=== PATIENT | female | born 1945 | race African-American/Black ===

== ENCOUNTER → 2016-08-13 | Outpatient (CLI) | payer MEDICARE, MEDICAID ==
[2016-08-13 10:52] LABS: ALANINE AMINOTRANSFERASE 148 U/L (9-52); ALKALINE PHOSPHATASE 96 U/L (38-126); ANION GAP 10 (5-19); ASPARTATE AMINO TRANSFERASE 169 U/L (14-36); BILIRUBIN,TOTAL 1.1 mg/dL (0.2-1.3); BLOOD UREA NITROGEN 30 mg/dL (7-20); CARBON DIOXIDE 27 mmol/L (22-30); CHLORIDE 106 mmol/L (98-107); CHOLESTEROL 184.71 mg/dL (0-200); CREATININE RESULT 1.89 mg/dL (0.52-1.25); Direct HDL 49 mg/dL (>40); GLUCOSE 89 mg/dL (75-110); POTASSIUM 4.9 mmol/L (3.6-5.0); SODIUM 143.1 mmol/L (137-145); TOTAL PROTEIN 9.2 g/dL (6.3-8.2); TRIGLYCERIDES 89 mg/dL (<150)
[2016-08-13 11:03] LABS: DIRECT LDL 85 mg/dL (<100)
== END ==
LOC: LAB 10:18
PROVIDERS: ATTEND Internal Medicine
DX: I25.10 Atherosclerotic heart disease of native coronary artery without angina pectoris (principal); E78.4 Other hyperlipidemia; E66.8 Other obesity; I27.2 Other secondary pulmonary hypertension; I50.9 Heart failure, unspecified; Z79.899 Other long term (current) drug therapy
CPT/HCPCS: 36415; 80053; 80061

== ENCOUNTER → 2016-08-19 | Outpatient (CLI) | payer MEDICARE, MEDICAID ==
--- NOTE | 2016-08-19 13:03 | XCELERA REPORT ---
[address] [address] Lower Extremity Arterial Evaluation Name: NELI BAEZ Age: 70 yrs Gender: Female : 1945 Patient Status: Outpatient Patient Location: Study Date: 08/19/2016 09:42 AM Procedure: A color flow and duplex scan of the lower extremity arteries was performed bilaterally with velocity and waveform analysis. Reason For Study: RLE WOUND Ordering Physician: MAGDI REYES Performed By: Josr Sharp Measurements and Calculations Right Left POLICE SPECIALIST PSV 157.8 165.0 cm/sec Prox PFA PSV -105.9 -106.8 cm/sec Dist SFA PSV -160.6 -144.6 cm/sec Prox Pop A PSV 89.4 50.3 cm/sec Dist FERN PSV 40.5 61.5 cm/sec Dist INSURANCE COLLECTOR PSV -47.2 49.3 cm/sec David Pedis PSV 35.9 55.9 cm/sec Right Side Arterial Evaluation Normal velocity, waveform and triphasic flow are present, from the Common Femoral artery to the Femoral. Biphasic in the infrageniculate vessels. The ankle-brachial index was not done. 0-19 % stenosis is noted at the infrageniculate level. Left Side Arterial Evaluation Normal velocity, waveform and triphasic flow are present, from the Common Femoral artery to the Femoral. Biphasic in the infrageniculate vessels. The ankle-brachial index was not done. 0-19 % stenosis is noted at the infrageniculate level. Interpretation Summary Mild hemodynamically significant lesions in the bilateral lower extremities, on duplex imaging, at rest. : MAGDI REYES > Shahid Ventura
== END ==
LOC: SP 09:27
PROVIDERS: ATTEND Family Medicine
DX: S81.801D Unspecified open wound, right lower leg, subsequent encounter (principal); X58.XXXD Exposure to other specified factors, subsequent encounter
CPT/HCPCS: 93925

== ENCOUNTER → 2016-12-04 | Outpatient (CLI) | payer MEDICARE, MEDICAID ==
[2016-12-04 09:10] LABS: HEMATOCRIT 40.9 % (36.0-47.0); HEMOGLOBIN 13.9 g/dL (12.0-15.5); HGB HCT DIFFERENCE 0.8; MEAN CORPUSCULAR HEMOGLOBIN 34.7 pg (27.0-33.4); MEAN CORPUSCULAR VOLUME 102 fl (80-97); RED CELL DISTRIBUTION WIDTH 14.9 % (11.5-14.0)
[2016-12-04 09:14] LABS: APPEARANCE,URINE CLEAR; BILIRUBIN,URINE NEGATIVE (NEGATIVE); GLUCOSE, URINE NEGATIVE (NEGATIVE); KETONES,URINE NEGATIVE (NEGATIVE); LEUKOCYTE ESTERASE,URINE NEGATIVE (NEGATIVE); NITRITE,URINE NEGATIVE (NEGATIVE); PROTEIN,URINE NEGATIVE (NEGATIVE); URINE SPECIFIC GRAVITY 1.017; UROBILINOGEN,URINE NEGATIVE mg/dL (<2.0)
[2016-12-04 09:35] LABS: ANION GAP 10 (5-19); BLOOD UREA NITROGEN 30 mg/dL (7-20); CALCIUM 8.5 mg/dL (8.4-10.2); CARBON DIOXIDE 25 mmol/L (22-30); CHLORIDE 109 mmol/L (98-107); CREATININE RESULT 1.28 mg/dL (0.52-1.25); GLUCOSE 91 mg/dL (75-110); POTASSIUM 4.7 mmol/L (3.6-5.0); SODIUM 144.4 mmol/L (137-145)
== END ==
LOC: LAB 08:49
PROVIDERS: ATTEND Internal Medicine Nephrology
DX: I12.9 Hypertensive chronic kidney disease with stage 1 through stage 4 chronic kidney disease, or unspecified chronic kidney disease (principal); N18.4 Chronic kidney disease, stage 4 (severe); E87.5 Hyperkalemia
CPT/HCPCS: 36415; 80048; 81001; 85027

== ENCOUNTER → 2017-02-15 | Outpatient (CLI) | payer MEDICARE, MEDICAID ==
--- NOTE | 2017-02-15 10:30 | RADIOLOGY REPORT (SQ) ---
EXAM DESCRIPTION: ACUTE ABDOMEN SERIES COMPLETED DATE/TIME: 02/15/2017 8:20 am REASON FOR STUDY: LOWER ABDOMINAL PAIN, UNSPECIFIED R10.30 LOWER ABDOMINAL PAIN, UNSPECIFIED COMPARISON: Chest CT 06/29/2014 NUMBER OF VIEWS: Three views. TECHNIQUE: Frontal chest, supine abdomen and upright abdomen radiographic images acquired. LIMITATIONS: None. FINDINGS: CHEST: No acute infiltrates. There is right hilar prominence. The left hilum is elevated and there are streaky changes extending to the left apex where there is apical pleural capping. FREE AIR: None. No abnormal gas collections. BOWEL GAS PATTERN: Nonobstructive pattern. No dilated loops or air fluid levels. CALCIFICATIONS: No suspicious calcifications. HARDWARE: None in the abdomen. SOFT TISSUES: No gross mass or suggestion of organomegaly. BONES: No acute fracture. No worrisome bone lesions. OTHER: No other significant finding. IMPRESSION: 1. There are changes in the chest felt to be chronic, but consider chest CT to re-evalu ate changes described. 2. No acute process is suggested in the abdomen. TECHNICAL DOCUMENTATION: JOB ID: [id number] [employer]- All Rights Reserved
== END ==
LOC: OD 08:03
PROVIDERS: ATTEND Physician Assistant
DX: R10.30 Lower abdominal pain, unspecified (principal)
CPT/HCPCS: 74022

== ENCOUNTER → 2017-02-18 | Outpatient (CLI) | payer MEDICARE, MEDICAID ==
--- NOTE | 2017-02-18 10:59 | RADIOLOGY REPORT (SQ) ---
EXAM DESCRIPTION: CT CHEST WITHOUT COMPLETED DATE/TIME: 02/18/2017 9:51 am REASON FOR STUDY: ABNORMAL FINDINGS OF DIAGNOSTIC IMAGING R93.8 ABNORMAL FINDINGS ON DIAGNOSTIC RUKHSANA GING OF BODY STRUCT COMPARISON: CT 06/29/2014 chest x-ray 02/15/2017 TECHNIQUE: CT scan performed of the chest without intravenous contrast. Images reviewed with lung, soft tissue and bone windows. Reconstructed coronal and sagittal MPR images reviewed. All images st ored on PACS. All CT scanners at this facility use dose modulation, iterative reconstruction, and/or weight based d osing when appropriate to reduce radiation dose to as low as reasonably achievable (ALARA). [facility]: Dose Right [facility]: CareDose [facility]: Dose Right [facility]: Teradose 4D [facility]: Smart Technologies RADIATION DOSE: Up-to-date CT equipment and radiation dose reduction techniques were employed. CTDIv ol: 18.3 mGy. DLP: 683 mGy-cm. mGy. LIMITATIONS: No technical limitations. FINDINGS: LUNGS AND PLEURA: There is apical pleural thickening on the left. There is scarring and b ronchiectasis in the left upper lobe extending to the left hilum. These findings are stable. There i s somewhat lobular nodule in the right lower lobe that is stable. There is no pulmonary infiltrate o r pleural effusion. HILAR AND MEDIASTINAL STRUCTURES: No identified masses or abnormal nodes. No obvious aneurysm. HEART AND VASCULAR STRUCTURES: No aneurysm. No pericardial effusion. UPPER ABDOMEN: No significant findings. Limited exam. THYROID AND OTHER SOFT TISSUES: No masses. No adenopathy. BONES: No significant finding. HARDWARE: None in the chest. OTHER: No other significant findings. IMPRESSION: There are stable findings as described above. No acute pulmonary abnormality is seen. TECHNICAL DOCUMENTATION: JOB ID: [id number] Quality ID # [id number]: Final reports with documentation of one or more dose reduction techniques (e.g., Au tomated exposure control, adjustment of the mA and/or kV according to patient size, use of iterative reconstruction technique) 2010 [employer]- All Rights Reserved
== END ==
LOC: RAD 09:34
PROVIDERS: ATTEND Physician Assistant
DX: R93.8 Abnormal findings on diagnostic imaging of other specified body structures (principal)
CPT/HCPCS: 71250

== ENCOUNTER → 2017-05-05 | Outpatient (CLI) | payer MEDICARE, MEDICAID ==
--- NOTE | 2017-05-05 16:58 | WOMENS IMAGING REPORT ---
EXAM DESCRIPTION: 3D SCREENING MAMMO BILAT COMPLETED DATE/TIME: 05/05/2017 9:15 am REASON FOR STUDY: ROUTINE SCREENING;Z12.31 Z12.31 ENCNTR SCREEN MAMMOGRAM FOR MALIGNANT NEOPLASM OF [place] COMPARISON: Multiple since 2013 TECHNIQUE: Standard craniocaudal and mediolateral oblique views of each breast recorded using digita l acquisition and breast tomosynthesis. LIMITATIONS: None. FINDINGS: Findings present which are benign by mammographic criteria. No suspicious masses, calcifi cations or architectural distortion. Pertinent benign findings: Benign calcifications bilaterally Read with the assistance of CAD. [facility] - R2 Cenova Version 1.3 .[facility] - R2 Cenova Version 1.3 .[facility] Imaging - R2 Cenova Version 2.4 .[facility] [place] - R2 Cenova Version 2.4 .[facility] - R2 E Business Manager Version 9.2 Benign mammographic findings may include one or more of the following: Smooth masses, popcorn/rim/co arse calcifications, asymmetries, post-procedure changes, and lesions with long-standing stability. IMPRESSION: BENIGN MAMMOGRAPHIC FINDINGS. BIRADS 2 BREAST DENSITY: b. There are scattered areas of fibroglandular density. BIRAD: 2 BENIGN FINDING(S) RECOMMENDATION: RECOMMENDATION: ROUTINE SCREENING Please continue yearly bilateral screening tomosynthesis in April 2018 COMMENT: The patient has been notified of the results by letter per SA requirements. Additional no tification policies are in place for contacting patient with suspicious or incomplete findings. Quality ID #[id number]: The [employer] recommends an annual screening mammogram for women aged 40 years or over. This facility utilizes a reminder system to ensure that all patients receive reminder letters, and/or direct phone calls for appointments. This includes reminders for routine scr eening mammograms, diagnostic mammograms, or other Breast Imaging Interventions when appropriate. Th is patient will be placed in the appropriate reminder system. The [employer] (ACR) has developed recommendations for screening MRI of the breast s in certain patient populations, to be used in conjunction with mammography. Breast MRI surveillanc e may be appropriate for women with more than 20% lifetime risk of developing breast cancer as deter mined by genetic testing, significant family history of the disease, or history of mantle radiation f or Hodgkins Disease. ACR Practice Guidelines 2008. DBT Technology DBT is a type of tomographic mammography. With conventional mammography, overlapping breast tissue ma y make lesions difficult to detect, even with good compression. DBT uses an x-ray tube that rotates a round the breast, taking images at different angles. These images are then combined to create thin sl ices of the breast that the radiologist can view as a 3D reconstruction. The [employer] unit can perform full-field digital mammograms (2D imaging); or DBT (3D imaging); or both, in a combination mode that quickly performs both the mammogram and the tomosynthesis scan while the breast is still compressed. PQRS 6045F: Fluoroscopic imaging is not utilized for breast tomosynthesis. TECHNICAL DOCUMENTATION: FINDING NUMBER: (1) ASSESSMENT: (1) JOB ID: [id number] [employer]- All Rights Reserved
== END ==
LOC: WI 08:36
PROVIDERS: ATTEND Physician Assistant
DX: Z12.31 Encounter for screening mammogram for malignant neoplasm of breast (principal)
CPT/HCPCS: 77063; G0202; 77067

== ENCOUNTER → 2017-09-14 | Outpatient (CLI) | payer MEDICARE, MEDICAID ==
--- NOTE | 2017-09-14 14:23 | RADIOLOGY REPORT (SQ) ---
EXAM DESCRIPTION: CERV SP 4 OR 5 VIEWS COMPLETED DATE/TIME: 09/14/2017 10:11 am REASON FOR STUDY: PAIN IN LEFT SHOULDER (M25.512) R07.9 CHEST PAIN, UNSPECIFIED COMPARISON: None. NUMBER OF VIEWS: Five views. TECHNIQUE: AP, lateral, obliques and odontoid radiographic images acquired of the cervical spine. LIMITATIONS: None. FINDINGS: MINERALIZATION: Normal. ALIGNMENT: Anatomic. VERTEBRAE: Vertebral bodies of normal height. DISCS: Mild moderate disc space narrowing C4-C5, C5-C6 and C6-C7. Minimal degenerative spurring post erior FORAMINA: Slight encroachment upon the neural foramina C5-C6 and C6-C7 on the right. LATERAL AND POSTERIOR ELEMENTS: Facets, lateral masses and spinous processes without significant find ings. HARDWARE: None in the spine. SOFT TISSUES: No masses or calcifications. Lung apices clear. OTHER: No other significant finding. IMPRESSION: Mild to moderate spondylotic change C4 through C7 reflected by disc space narrowing and degenerative spurring posteriorly. TECHNICAL DOCUMENTATION: JOB ID: [id number] [employer]- All Rights Reserved Reading location - IP/workstation name: [email or web address]
--- NOTE | 2017-09-14 19:01 | XCELERA REPORT ---
[address] [address] Transthoracic Echocardiogram Report Name: NELI BAEZ Age: 71 yrs Gender: Female : 1945 Patient Status: Outpatient Patient Location: Study Date: 09/14/2017 09:06 AM Height: 64 in Weight: 239 lb BSA: 2.1 m2 Procedure: A complete two-dimensional transthoracic echocardiogram was performed (2D, M-mode, spectral and color flow Doppler). The study was technically difficult with many images being suboptimal in quality. Reason For Study: CP Ordering Physician: CATRACHO TORRES Performed By: Yulissa Parks Interpretation Summary The study was technically difficult with many images being suboptimal in quality. The Ejection Fraction estimate is 45-50% Left ventricular systolic function is mildly reduced. Doppler measurements suggest pseudonormalized left ventricular relaxation, which is associated with grade II/IV or mild to moderate diastolic dysfunction Regional wall motion abnormalities cannot be excluded due to limited visualization. There is borderline concentric left ventricular hypertrophy. The left ventricle is grossly normal size. The right ventricle is moderately dilated. The right ventricular systolic function is mild to moderately reduced. Borderline left atrial enlargement. The right atrium is moderately dilated. There is no mitral regurgitation noted. There is no mitral valve stenosis. Can not r/o pior mitral ring repair There is no aortic valve stenosis No aortic regurgitation is present. There is a moderate amount of tricuspid regurgitation There is servere pulmonary hypertension by echo Best estimated RVSP is approximately 80 mm/Hg. The aortic root is not well visualized but is probably normal size. The inferior vena cava was not well visualized There is no pericardial effusion. MMode/2D Measurements & Calculations RVDd: 2.9 cm LVIDd: 5.1 cm FS: 17.6 % Ao root diam: 2.3 cm IVSd: 0.98 cm LVIDs: 4.2 cm EDV(Teich): 124.7 ml LVPWd: 0.96 cm ESV(Teich): 79.3 ml Ao root area: 4.1 cm2 EF(Teich): 36.4 % LA dimension: 4.2 cm Doppler Measurements & Calculations MV E max iraida: MV P1/2t max iraida: Ao V2 max: LV V1 max P.6 cm/sec 64.2 cm/sec 143.3 cm/sec 1.6 mmHg MV A max iraida: MV P1/2t: 61.8 msec Ao max PG: LV V1 max: 120.4 cm/sec 8.2 mmHg 62.7 cm/sec MV E/A: 0.55 MVA(P1/2t): 3.6 cm2 MV dec slope: 304.1 cm/sec2 PA V2 max: TR max iraida: 59.7 cm/sec 449.3 cm/sec PA max P.4 mmHgTR max P.7 mmHg Left Ventricle The left ventricle is grossly normal size. There is borderline concentric left ventricular hypertrophy. Left ventricular systolic function is mildly reduced. The Ejection Fraction estimate is 45-50%. Doppler measurements suggest pseudonormalized left ventricular relaxation, which is associated with grade II/IV or mild to moderate diastolic dysfunction. Regional wall motion abnormalities cannot be excluded due to limited visualization. Right Ventricle The right ventricle is moderately dilated. The right ventricular systolic function is mild to moderately reduced. Atria The right atrium is moderately dilated. Borderline left atrial enlargement. Interarterial septum not well visualized and not well dopplered. Cannot comment on ASD/PFO presence. Mitral Valve The mitral valve leaflets are sclerotic, but show no functional abnormalities. There is moderate mitral annular calcification. Can not r/o pior ring repair. There is no mitral valve stenosis. There is no mitral regurgitation noted. Aortic Valve The aortic valve is not well visualized secondary to technical limitations. There is no aortic valve stenosis. No aortic regurgitation is present. Tricuspid Valve The tricuspid valve is not well visualized secondary to technical limitations. There is no tricuspid stenosis. There is a moderate amount of tricuspid regurgitation. There is servere pulmonary hypertension by echo. Best estimated RVSP is approximately 80 mm/Hg. Pulmonic Valve The pulmonic valve is not well visualized. Great Vessels The aortic root is not well visualized but is probably normal size. The inferior vena cava was not well visualized. Effusions There is no pericardial effusion. : CATRACHO TORRES > Lynda Rossi
== END ==
LOC: SP 08:45
PROVIDERS: ATTEND Specialist
DX: R07.9 Chest pain, unspecified (principal); M48.02 Spinal stenosis, cervical region
CPT/HCPCS: 72050; 93306

== ENCOUNTER 2017-09-24 14:18 | Inpatient (IN) | payer MEDICARE, MEDICAID ==
--- NOTE | 2017-09-24 14:31 | ER Document Report ---
ED General - General Stated Complaint: BREATHING DIFFICULTY Time Seen by Provider: 09/24/17 14:21 Notes: This is a 71-year-old lady who has chronic lung disease being considered for home oxygen, pathology unknown coming in with respiratory distress. She has got acutely short of breath this morning was found pale diaphoretic and hypoxic by paramedics, she improved with nebulizers on the way here and was given steroids as well. She denies fever but says she is coughing. She denies leg swelling. She states that she has had flares like this before and does use a "pop" at home. She sees Dr. Millan, I do not see documentation of any respiratory disease in her chart. TRAVEL OUTSIDE OF THE [place] IN LAST 30 DAYS: No - Related Data Allergies/Adverse Reactions: Sulfa (Sulfonamide Antibiotics) Allergy (Verified 05/26/16 11:36) Past Medical History - Social History Smoking Status: Current Every Day Smoker Smoking Education Provided: Yes - The patient ED visit today was directly related to their abuse of tobacco. Family History: Reviewed & Not Pertinent - Past Medical History Cardiac Medical History: Reports: Hx Congestive Heart Failure, Hx Coronary Artery Disease, Hx Heart Attack, Hx Hypercholesterolemia, Hx Hypertension, Hx Peripheral Vascular Disease Pulmonary Medical History: Denies: Hx Tuberculosis Renal/ Medical History: Reports: Hx Renal Insufficiency Musculoskeltal Medical History: Reports Hx Arthritis Past Surgical History: Reports: Hx Tonsillectomy - Immunizations Hx Diphtheria, Pertussis, Tetanus Vaccination: Yes - 2014 Hx Pneumococcal Vaccination: 03/26/13 Physical Exam - Vital signs Vitals: Resp Pulse Ox 17 87 L 09/24/17 14:23 09/24/17 14:23 Course - Re-evaluation Re-evalutation: 09/24/17 14:36 Patient seen and evaluated in the ED. She had improved vastly from her prehospital state but was still requiring oxygen in the ED. On reviewing her chart recklessly I do see a CT scan that was done in the last 6 months which showed pleural thickening and bronchiectasis on the right side. Her differential includes flare of interstitial lung disease versus COPD, new pneumonia, less likely pulmonary embolus as there is an alternative cause and she improved with nebulizer. Will do a pneumonia and sepsis workup. Her ECG shows a stable conduction block. 09/24/17 17:51 CT shows bronchiectasis but no pulmonary embolus. Patient is still requiring oxygen and will need to be admitted. Spoke with Dr. Escalante who accepted. Labs are unremarkable. - Vital Signs Vital signs: Temp Pulse Resp BP Pulse Ox 19 163/87 H 94 09/24/17 17:02 09/24/17 17:02 09/24/17 17:02 - Laboratory Result Diagrams: 09/24/17 14:30 09/24/17 14:30 Laboratory results interpreted by me: 09/24/17 09/24/17 14:30 14:30 Hgb 15.9 H MCV 105 H MCH 35.4 H RDW 15.2 H Potassium 5.5 H Chloride 108 H BUN 23 H Creatinine 1.60 H Est GFR ( Amer) 39 L Est GFR (Non-Af Amer) 32 L - Diagnostic Test Radiology reviewed: Image reviewed, Reports reviewed - EKG Interpretation by Me EKG shows normal: Sinus rhythm Rate: Normal A[place]worth/QRS: LBBB When compared to previous EKG there are: No significant change Critical Care Note - Critical Care Note Total time excluding time spent on procedures (mins): 31 Comments: The above patient is critically ill. Not including procedures, but including direct re-evaluations, speaking with patient and/or consultants, interpreting results, and documenting, I spent the total amount of minute listed listed above on critical care time
[2017-09-24 14:43] LABS: ABSOLUTE EOSINOPHILS # (AUTO) 0.3 10^3/uL (0.0-0.6); ABSOLUTE LYMPHOCYTES (AUTO) 1.7 10^3/uL (0.5-4.7); ABSOLUTE MONOCYTES (AUTO) 0.7 10^3/uL (0.1-1.4); ABSOLUTE NEUT (AUTO) 5.6 10^3/uL (1.7-8.2); BASOPHILS % (AUTO) 0.4 % (0-2); EOSINOPHILS % (AUTO) 3.1 % (0-6); HEMOGLOBIN 15.9 g/dL (12.0-15.5); LYMPHOCYTES % (AUTO) 20.6 % (13-45); MEAN CORPUSCULAR HEMOGLOBIN 35.4 pg (27.0-33.4); MEAN CORPUSCULAR HGB CONC 33.8 g/dL (32.0-36.0); MEAN CORPUSCULAR VOLUME 105 fl (80-97); MONOCYTES % (AUTO) 8.9 % (3-13); PLATELET COUNT 192 10^3/uL (150-450); RED CELL DISTRIBUTION WIDTH 15.2 % (11.5-14.0); TOTAL CELLS COUNTED % (AUTO) 100 %; WHITE BLOOD COUNT 8.3 10^3/uL (4.0-10.5)
[2017-09-24 15:04] LABS: ANION GAP 7 (5-19); BLOOD UREA NITROGEN 23 mg/dL (7-20); CALCIUM 8.8 mg/dL (8.4-10.2); CARBON DIOXIDE 26 mmol/L (22-30); CHLORIDE 108 mmol/L (98-107); GLUCOSE 106 mg/dL (75-110); POTASSIUM 5.5 mmol/L (3.6-5.0); SODIUM 141.4 mmol/L (137-145)
--- NOTE | 2017-09-24 15:08 | RADIOLOGY REPORT (SQ) ---
EXAM DESCRIPTION: CHEST SINGLE VIEW COMPLETED DATE/TIME: 09/24/2017 2:49 pm REASON FOR STUDY: SOB COMPARISON: 10/19/2013 NUMBER OF VIEWS: One view. TECHNIQUE: Single frontal radiographic view of the chest acquired. LIMITATIONS: None. FINDINGS: LUNGS AND PLEURA: Chronic interstitial changes. Known pulmonary nodule right lower lobe n ot significantly changed. Stable areas of bronchiectasis in the left upper lobe. MEDIASTINUM AND HILAR STRUCTURES: No masses or contour abnormality. HEART AND VASCULATURE: Cardiac enlargement. Vascular congestion. BONES: No acute findings. HARDWARE: None in the chest. OTHER: No other significant finding. IMPRESSION: CARDIAC ENLARGEMENT. VASCULAR CONGESTION. TECHNICAL DOCUMENTATION: JOB ID: [id number] [employer]- All Rights Reserved Reading location - IP/workstation name: [email or web address]
--- NOTE | 2017-09-24 16:59 | RADIOLOGY REPORT (SQ) ---
EXAM DESCRIPTION: CTA CHEST COMPLETED DATE/TIME: 09/24/2017 4:19 pm REASON FOR STUDY: Hypoxia rule out PE COMPARISON: CT chest 02/18/2017 TECHNIQUE: CT scan of the chest performed using helical scanning technique with dynamic intravenous contrast injection. Images reviewed with lung, soft tissue and bone windows. Reconstructed coronal and sagittal MPR images reviewed. Additional 3 dimensional post-processing performed to develop Maximal Intensity Projection images (GA P). All images stored on PACS. All CT scanners at this facility use dose modulation, iterative reconstruction, and/or weight based d osing when appropriate to reduce radiation dose to as low as reasonably achievable (ALARA). [facility]: Dose Right [facility]: CareDose [facility]: Dose Right [facility]: Teradose 4D [facility]: [employer] CONTRAST TYPE AND DOSE: contrast/concentration: Isovue 300.00 mg/ml; Total Contrast Delivered: 81.0 ml; Total Saline Delivered: 87.0 ml BUN 23 creatinine 1.6 RENAL FUNCTION: BUN 23 creatinine 1.6 RADIATION DOSE: CT Rad equipment meets quality standard of care and radiation dose reduction techniq ues were employed. CTDIvol: 36.9 - 46.3 mGy. DLP: 1441 mGy-cm. . LIMITATIONS: None. FINDINGS: LUNGS AND PLEURA: There are stable, chronic changes seen the left upper lobe with elevatio n the left hilum and scarring and bronchiectasis. There is stable right pulmonary nodule. AORTA AND GREAT VESSELS: No aneurysm. Contrast bolus not optimized for the aorta. Left-sided superi or vena cava. HEART: No pericardial effusion. Moderate to marked coronary artery calcifications. PULMONARY ARTERIES: No emboli visualized in the main pulmonary arteries or the segmental branches. HILAR AND MEDIASTINAL STRUCTURES: No identified masses or abnormal nodes. HARDWARE: None in the chest. UPPER ABDOMEN: No significant findings. Limited exam. THYROID AND OTHER SOFT TISSUES: No masses. No adenopathy. BONES: No acute or significant finding. 3D MIPS: Confirm above findings. OTHER: No other significant finding. IMPRESSION: 1. There is no evidence of pulmonary emboli. 2. Extensive chronic changes in the lungs as described. 3. Left-sided superior vena cava. COMMENT: Quality ID # [id number]: Final reports with documentation of one or more dose reduction techniques (e.g., Automated exposure control, adjustment of the mA and/or kV according to patient size, use of iterative reconstruction technique) TECHNICAL DOCUMENTATION: JOB ID: [id number] [employer]- All Rights Reserved Reading location - IP/workstation name: [email or web address]
[2017-09-24] MEDS ORDERED: NORMAL SALINE 1000 ML 1,000 ML IV PRN ×2 (18:48→20:44)
[2017-09-24 19:44] LABS: FREE T4 (FREE THYROXINE) 2.36 ng/dL (0.78-2.19)
[2017-09-24 19:58] LABS: THYROID STIMULATING HORMONE 3.79 uIU/mL (0.47-4.68)
[2017-09-24] MEDS ORDERED: LEVOFLOXACIN 750 MG/D5W RTU 750 MG/150 ML RTUPB IV ONE (20:00)
[2017-09-24 20:14] LABS: APPEARANCE,URINE CLEAR; BILIRUBIN,URINE NEGATIVE (NEGATIVE); COLOR,URINE YELLOW; GLUCOSE, URINE NEGATIVE (NEGATIVE); KETONES,URINE NEGATIVE (NEGATIVE); LEUKOCYTE ESTERASE,URINE NEGATIVE (NEGATIVE); NITRITE,URINE NEGATIVE (NEGATIVE); PROTEIN,URINE NEGATIVE (NEGATIVE); URINE SPECIFIC GRAVITY 1.036; UROBILINOGEN,URINE NEGATIVE mg/dL (<2.0)
[2017-09-24 20:19] LABS: ARTERIAL BLOOD BASE EXCESS -4.4 mmol/L; ARTERIAL BLOOD HCO3 21.7 mmol/L (20-26); ARTERIAL BLOOD O2 SATURATION 91.2 % (94-98); ARTERIAL BLOOD PCO2 43.3 mmHg (35-45); ARTERIAL BLOOD PH 7.32 (7.35-7.45); ARTERIAL BLOOD PO2 65.3 mmHg (80-100)
[2017-09-24 20:22] LABS: ARTERIAL BLOOD FIO2 15L
--- NOTE | 2017-09-24 21:11 | EKG REPORT ---
SEVERITY:- ABNORMAL ECG - SINUS RHYTHM LEFT BUNDLE BRANCH BLOCK : Confirmed by: Lynda Rossi 24-Sep-2017 21:11:10
[2017-09-24 21:27] LABS: CREATINE KINASE MB 0.58 ng/mL (<4.55)
[2017-09-24 21:31] LABS: TROPONIN I < 0.012 ng/mL
[2017-09-25 01:53] LABS: CREATINE KINASE MB 0.38 ng/mL (<4.55)
[2017-09-25 01:57] LABS: TROPONIN I < 0.012 ng/mL
[2017-09-25] MEDS ORDERED: ALBUTEROL SULFATE HFA (90 MCG/PUFF) 8 GM MDI (1 MDI/ER DISP) IH PRN (02:49)
[2017-09-25] MEDS: LEVOTHYROXINE SODIUM 0.025 MG TABLET PO SCH (06:35)
[2017-09-25] MEDS: HYDRALAZINE HCL 25 MG TABLET PO SCH ×3 (06:36→21:49)
[2017-09-25 07:03] LABS: ABSOLUTE LYMPHOCYTES (AUTO) 0.4 10^3/uL (0.5-4.7); ABSOLUTE NEUT (AUTO) 2.4 10^3/uL (1.7-8.2); BASOPHILS % (AUTO) 0.3 % (0-2); HEMATOCRIT 47.2 % (36.0-47.0); LYMPHOCYTES % (AUTO) 12.8 % (13-45); MEAN CORPUSCULAR HEMOGLOBIN 35.5 pg (27.0-33.4); MEAN CORPUSCULAR HGB CONC 33.9 g/dL (32.0-36.0); MEAN CORPUSCULAR VOLUME 105 fl (80-97); MONOCYTES % (AUTO) 1.2 % (3-13); PLATELET COUNT 172 10^3/uL (150-450); RED BLOOD COUNT 4.52 10^6/uL (3.72-5.28); RED CELL DISTRIBUTION WIDTH 14.9 % (11.5-14.0); SEGMENTED NEUTROPHILS % (AUTO) 85.7 % (42-78); TOTAL CELLS COUNTED % (AUTO) 100 %
[2017-09-25 07:15] LABS: ANION GAP 12 (5-19); BLOOD UREA NITROGEN 28 mg/dL (7-20); CARBON DIOXIDE 18 mmol/L (22-30); CHLORIDE 109 mmol/L (98-107); GLUCOSE 142 mg/dL (75-110); SODIUM 139.1 mmol/L (137-145)
[2017-09-25 07:19] LABS: WHITE BLOOD COUNT 2.9 10^3/uL (4.0-10.5)
[2017-09-25 07:23] LABS: POTASSIUM 6.2 mmol/L (3.6-5.0)
[2017-09-25 07:24] LABS: CREATINE KINASE MB 0.52 ng/mL (<4.55)
[2017-09-25 07:27] LABS: TROPONIN I < 0.012 ng/mL
[2017-09-25] MEDS ORDERED: CALCIUM GLUCONATE 1000 MG/10 ML INJ IV ONE (07:44)
[2017-09-25] MEDS ORDERED: INSULIN REG, HUMAN 100 UNIT/ML 3 ML VIAL (PYX) IV ONE (07:49)
[2017-09-25] MEDS ORDERED: DEXTROSE 50%-WATER 25 GM/50 ML DISP.SYRIN IV ONE (07:51)
[2017-09-25] MEDS ORDERED: SODIUM POLYSTYRENE SULFONATE 15 GM/60 ML PO ONE (07:51)
[2017-09-25] MEDS: POTASSIUM CHLORIDE 10 MEQ TABLET.SA PO SCH (09:22)
[2017-09-25] MEDS: FUROSEMIDE 40 MG TABLET PO SCH (10:18)
[2017-09-25] MEDS: ENOXAPARIN SODIUM INJ 30 MG/0.3 ML DISP.SYRIN SUBCUT SCH (10:18)
[2017-09-25] MEDS: CARVEDILOL 6.25 MG TABLET PO SCH ×2 (10:19→21:49)
[2017-09-25] MEDS: OMEGA-3 ACID ETHYL ESTERS 1 GM CAPSULE PO SCH (10:19)
[2017-09-25] MEDS: ASPIRIN 81 MG TABLET, ENT COATED PO SCH (10:19)
[2017-09-25] MEDS: FLUTICASONE NASAL SPRAY 50 MCG/SPRY 120 SPRAY/16 GM NASL SCH (10:32)
[2017-09-25] MEDS ORDERED: SODIUM POLYSTYRENE SULFONATE 15 GM/60 ML PO SCH (12:00)
[2017-09-25] MEDS: SODIUM POLYSTYRENE SULFONATE 15 GM/60 ML PO SCH ×2 (12:09→18:13)
[2017-09-25] MEDS ORDERED: INFLUENZA ADLT QUAD (36MOS+) 2017-18 VAC 0.5 ML SYR IM PRN (15:40)
--- NOTE | 2017-09-25 15:56 | PDOC H&P ---
History of Present Illness Admission Date/PCP: 09/24/17 17:55 MAGDI REYES MD History of Present Illness: NELI BAEZ is a 71 year old female, she came to the emergency room for evaluation of shortness of breath, diaphoresis of acute onset, she was transferred to the emergency room by EMS. She was found to be hypoxemic she was treated with bronchodilators on the way to the emergency room and she also had steroid. In the emergency room a CTA chest was done, it showed stable chronic changes in the left upper lobe with elevation in the left hilum and scarring with bronchiectasis. There is stable right pulmonary nodule there was no pulmonary emboli visualized in the main pulmonary arteries or the segmental branches. The ABG on FiO2 of 15 L, PO2 65.3, PCO2 43.3, bicarbonate 21.7, pH 7.32, this is consistent with severe hypoxemia with mixed acid-base disorder. There is no evidence of acute consolidation to suggest pneumonia. It was stated that she was being evaluated for home oxygen before she developed this acute onset of shortness of breath requiring ED visit. In the emergency room the providers could not maintain adequate oxygenation without high volume oxygen , it was felt that she needed to be admitted to the hospital for management. It seems that she has interstitial lung disease, she follows with Dr. Salinas pulmonary, consultation will be requested from Dr. 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 Past Medical History Cardiac Medical History: Reports: Coronary Artery Disease, Hyperlipidema, Hypertension, Peripheral Vascular Disease, Other - Pulmonary hypertension Pulmonary Medical History: Reports: Other - Chronic interstitial lung disease Renal/ Medical History: Reports: Chronic Kidney Disease, Other - Chronic kidney disease stage 3 Musculoskeltal Medical History: Reports: Arthritis Past Surgical History Past Surgical History: Reports: Tonsillectomy Social History Smoking Status: Former Smoker Frequency of Alcohol Use: Occasional Hx Recreational Drug Use: No Hx Prescription Drug Abuse: No Family History Family History: Reviewed & Not Pertinent Parental Family History Reviewed: Yes Children Family History Reviewed: Yes Sibling(s) Family History Reviewed.: Yes Medication/Allergy Home Medications: Albuterol Sulfate [Ventolin HFA MDI 18 GM] 2 puff IH Q4HP PRN 09/24/17 Aspirin [Ecotrin 81 mg EC Tablet] 81 mg PO DAILY 09/24/17 Carvedilol [Coreg 6.25 mg Tablet] 12.5 mg PO Q12 09/24/17 Fluticasone Propionate [Flonase Nasal [place] 50 Mcg/[place] 16 gm] 1 spray NASL DAILY 09/24/17 Furosemide [Lasix 40 mg Tablet] 40 mg PO DAILY 09/24/17 Hydralazine HCl [Apresoline 25 mg Tablet] 25 mg PO Q8 09/24/17 Levocetirizine Dihydrochloride [Xyzal] 5 mg PO QPM 09/24/17 Levothyroxine Sodium [Synthroid 0.025 mg Tablet] 0.025 mg PO Q6AM 09/24/17 Nitroglycerin [Nitrostat] 0.4 mg SL Q5MP PRN 09/24/17 [place]-3 Fatty Acids/Fish Oil [Fish Oil 1,000 mg Capsule] 1 cap PO DAILY Ondansetron HCl [Zofran 4 mg Tablet] 4 mg PO Q12HP PRN 09/24/17 Potassium Chloride [Klor-Con M20] 20 meq PO DAILY 09/24/17 Allergies/Adverse Reactions: Sulfa (Sulfonamide Antibiotics) Allergy (Verified 05/26/16 11:36) Review of Systems Constitutional: ABSENT: chills, fever(s), headache(s), weight gain, weight loss Eyes: ABSENT: visual disturbances Ears: ABSENT: hearing changes Cardiovascular: PRESENT: dyspnea on exertion Respiratory: PRESENT: cough, dyspnea Gastrointestinal: ABSENT: abdominal pain, constipation, diarrhea, hematemesis, hematochezia, nausea, vomiting Genitourinary: ABSENT: dysuria, hematuria Musculoskeletal: ABSENT: joint swelling Integumentary: ABSENT: rash, wounds Neurological: ABSENT: abnormal gait, abnormal speech, confusion, dizziness, focal weakness, syncope Psychiatric: ABSENT: anxiety, depression, homidical ideation, suicidal ideation Endocrine: ABSENT: cold intolerance, heat intolerance, menstrual abnormalities, polydipsia, polyuria Hematologic/Lymphatic: ABSENT: easy bleeding, easy bruising, lymphadenopathy Physical Exam Vital Signs: Temp Pulse Resp BP Pulse Ox 97.4 F 15 183/92 H 95 09/25/17 10:30 09/25/17 12:44 09/25/17 12:44 09/25/17 12:44 Intake & Output 03/04/0509/25/17 09/26/17 06:59 06:59 07:59 Weight 108.862 kg General appearance: PRESENT: no acute distress, well-developed, well-nourished Head exam: PRESENT: atraumatic, normocephalic Eye exam: PRESENT: conjunctiva pink, EOMI, PERRLA Ear exam: PRESENT: normal external ear exam Mouth exam: PRESENT: moist, tongue midline Neck exam: PRESENT: full ROM Respiratory exam: PRESENT: rales Cardiovascular exam: PRESENT: RRR, +S1, +S2 Pulses: PRESENT: normal dorsalis pedis pul, +2 pedal pulses bilateral Vascular exam: PRESENT: normal capillary refill GI/Abdominal exam: PRESENT: normal bowel sounds, soft Rectal exam: PRESENT: deferred Extremities exam: PRESENT: joint swelling Neurological exam: PRESENT: alert, awake, oriented to person, oriented to place , oriented to time, oriented to situation, CN II-XII grossly intact Psychiatric exam: PRESENT: appropriate affect, normal mood Skin exam: PRESENT: dry, intact, warm Results Laboratory Results: 09/25/17 06:50 09/25/17 06:50 09/24/17 09/24/17 09/25/17 19:40 19:50 06:50 WBC 2.9 L D RBC 4.52 Hgb 16.0 H Hct 47.2 H MCV 105 H MCH 35.5 H MCHC 33.9 RDW 14.9 H Plt Count 172 Seg Neutrophils % 85.7 H Lymphocytes % 12.8 L Monocytes % 1.2 L Eosinophils % 0.0 Basophils % 0.3 Absolute Neutrophils 2.4 Absolute Lymphocytes 0.4 L Absolute Monocytes 0.0 L Absolute Eosinophils 0.0 Absolute Basophils 0.0 Carbonic Acid 1.30 HCO3/H2CO3 Ratio 16:1 ABG pH 7.32 L ABG pCO2 43.3 ABG pO2 65.3 L ABG HCO3 21.7 ABG O2 Saturation 91.2 L ABG Base Excess -4.4 FiO2 15L Sodium Potassium Chloride Carbon Dioxide Anion Gap BUN Creatinine Est GFR ( Amer) Est GFR (Non-Af Amer) Glucose Calcium Urine Color YELLOW Urine Appearance CLEAR Urine pH 5.0 Ur Specific [place] 1.036 Urine Protein NEGATIVE Urine Glucose (UA) NEGATIVE Urine Ketones NEGATIVE Urine Blood NEGATIVE Urine Nitrite NEGATIVE Ur Leukocyte Esterase NEGATIVE Urine WBC (Auto) 1 Urine RBC (Auto) 0 09/25/17 06:50 WBC RBC Hgb Hct MCV MCH MCHC RDW Plt Count Seg Neutrophils % Lymphocytes % Monocytes % Eosinophils % Basophils % Absolute Neutrophils Absolute Lymphocytes Absolute Monocytes Absolute Eosinophils Absolute Basophils Carbonic Acid HCO3/H2CO3 Ratio ABG pH ABG pCO2 ABG pO2 ABG HCO3 ABG O2 Saturation ABG Base Excess FiO2 Sodium 139.1 Potassium 6.2 H* Chloride 109 H Carbon Dioxide 18 L Anion Gap 12 BUN 28 H Creatinine 1.60 H Est GFR ( Amer) 39 L Est GFR (Non-Af Amer) 32 L Glucose 142 H Calcium 9.0 Urine Color Urine Appearance Urine pH Ur Specific [place] Urine Protein Urine Glucose (UA) Urine Ketones Urine Blood Urine Nitrite Ur Leukocyte Esterase Urine WBC (Auto) Urine RBC (Auto) 09/24/17 09/24/17 09/25/17 20:00 20:00 01:11 Creatine Kinase 35 34 CK-MB (CK-2) 0.58 Troponin I < 0.012 09/25/17 09/25/17 09/25/17 01:11 06:50 06:50 Creatine Kinase 33 CK-MB (CK-2) 0.38 0.52 Troponin I < 0.012 < 0.012 Impressions: Chest X-Ray 09/24/17 14:21 IMPRESSION: CARDIAC ENLARGEMENT. VASCULAR CONGESTION. Chest/Abdomen CTA 09/24/17 15:07 IMPRESSION: 1. There is no evidence of pulmonary emboli. 2. Extensive chronic changes in the lungs as described. 3. Left-sided superior vena cava. Assessment & Plan - Diagnosis (1) Acute respiratory failure with hypoxemia Is this a current diagnosis for this admission?: Yes Plan: Patient to be admitted into the hospital, she is presently not requiring noninvasive positive pressure ventilation, presently on nasal cannula. (2) Mixed acid base balance disorder Is this a current diagnosis for this admission?: Yes (3) Chronic interstitial lung disease Is this a current diagnosis for this admission?: Yes (4) Chronic kidney disease, stage 3 Is this a current diagnosis for this admission?: Yes
--- NOTE | 2017-09-25 16:12 | PDOC PROGRESS REPORT ---
Subjective Progress Note for:: 09/25/17 Subjective:: She was admitted because of acute respiratory failure with hypoxemia, history of CKD stage III, the blood work today showed hyperkalemia Reason For Visit: ACUTE HYPOXEMIC RESPIRATORY FAILURE,BRONCHOIECTASI Physical Exam Vital Signs: Temp Pulse Resp BP Pulse Ox 97.5 F 97 19 174/69 H 94 09/25/17 15:16 09/25/17 15:16 09/25/17 15:16 09/25/17 15:16 09/25/17 15:16 Intake & Output 09/24/17 09/25/17 09/26/17 06:59 06:59 07:59 Weight 108.862 kg 106.7 kg General appearance: PRESENT: no acute distress Eye exam: PRESENT: PERRLA Respiratory exam: PRESENT: clear to auscultation rafiq Cardiovascular exam: PRESENT: +S1, +S2 GI/Abdominal exam: PRESENT: soft Neurological exam: PRESENT: alert Results Laboratory Results: 09/25/17 06:50 09/25/17 06:50 09/24/17 09/24/17 09/25/17 19:40 19:50 06:50 WBC 2.9 L D RBC 4.52 Hgb 16.0 H Hct 47.2 H MCV 105 H MCH 35.5 H MCHC 33.9 RDW 14.9 H Plt Count 172 Seg Neutrophils % 85.7 H Lymphocytes % 12.8 L Monocytes % 1.2 L Eosinophils % 0.0 Basophils % 0.3 Absolute Neutrophils 2.4 Absolute Lymphocytes 0.4 L Absolute Monocytes 0.0 L Absolute Eosinophils 0.0 Absolute Basophils 0.0 Carbonic Acid 1.30 HCO3/H2CO3 Ratio 16:1 ABG pH 7.32 L ABG pCO2 43.3 ABG pO2 65.3 L ABG HCO3 21.7 ABG O2 Saturation 91.2 L ABG Base Excess -4.4 FiO2 15L Sodium Potassium Chloride Carbon Dioxide Anion Gap BUN Creatinine Est GFR ( Amer) Est GFR (Non-Af Amer) Glucose Calcium Urine Color YELLOW Urine Appearance CLEAR Urine pH 5.0 Ur Specific [place] 1.036 Urine Protein NEGATIVE Urine Glucose (UA) NEGATIVE Urine Ketones NEGATIVE Urine Blood NEGATIVE Urine Nitrite NEGATIVE Ur Leukocyte Esterase NEGATIVE Urine WBC (Auto) 1 Urine RBC (Auto) 0 09/25/17 06:50 WBC RBC Hgb Hct MCV MCH MCHC RDW Plt Count Seg Neutrophils % Lymphocytes % Monocytes % Eosinophils % Basophils % Absolute Neutrophils Absolute Lymphocytes Absolute Monocytes Absolute Eosinophils Absolute Basophils Carbonic Acid HCO3/H2CO3 Ratio ABG pH ABG pCO2 ABG pO2 ABG HCO3 ABG O2 Saturation ABG Base Excess FiO2 Sodium 139.1 Potassium 6.2 H* Chloride 109 H Carbon Dioxide 18 L Anion Gap 12 BUN 28 H Creatinine 1.60 H Est GFR ( Amer) 39 L Est GFR (Non-Af Amer) 32 L Glucose 142 H Calcium 9.0 Urine Color Urine Appearance Urine pH Ur Specific [place] Urine Protein Urine Glucose (UA) Urine Ketones Urine Blood Urine Nitrite Ur Leukocyte Esterase Urine WBC (Auto) Urine RBC (Auto) 09/24/17 09/24/17 09/25/17 20:00 20:00 01:11 Creatine Kinase 35 34 CK-MB (CK-2) 0.58 Troponin I < 0.012 09/25/17 09/25/17 09/25/17 01:11 06:50 06:50 Creatine Kinase 33 CK-MB (CK-2) 0.38 0.52 Troponin I < 0.012 < 0.012 Impressions: Chest X-Ray 09/24/17 14:21 IMPRESSION: CARDIAC ENLARGEMENT. VASCULAR CONGESTION. Chest/Abdomen CTA 09/24/17 15:07 IMPRESSION: 1. There is no evidence of pulmonary emboli. 2. Extensive chronic changes in the lungs as described. 3. Left-sided superior vena cava. Assessment & Plan - Diagnosis (1) Acute respiratory failure with hypoxemia Is this a current diagnosis for this admission?: Yes (2) Mixed acid base balance disorder Is this a current diagnosis for this admission?: Yes (3) Chronic interstitial lung disease Is this a current diagnosis for this admission?: Yes (4) Chronic kidney disease, stage 3 Is this a current diagnosis for this admission?: Yes (5) Hyperkalemia Is this a current diagnosis for this admission?: Yes Plan: Etiology not clear, probably due to transcellular shift, treated with Kayexalate and calcium gluconate 50% dextrose and insulin
[2017-09-25] MEDS: CETIRIZINE 5 MG TABLET PO SCH (17:11)
[2017-09-25 18:03] LABS: ABSOLUTE LYMPHOCYTES (AUTO) 0.5 10^3/uL (0.5-4.7); ABSOLUTE MONOCYTES (AUTO) 0.3 10^3/uL (0.1-1.4); ABSOLUTE NEUT (AUTO) 7.9 10^3/uL (1.7-8.2); BASOPHILS % (AUTO) 0.2 % (0-2); EOSINOPHILS % (AUTO) 0.1 % (0-6); HEMATOCRIT 48.2 % (36.0-47.0); HEMOGLOBIN 16.5 g/dL (12.0-15.5); LYMPHOCYTES % (AUTO) 5.9 % (13-45); MEAN CORPUSCULAR HEMOGLOBIN 35.3 pg (27.0-33.4); MEAN CORPUSCULAR HGB CONC 34.2 g/dL (32.0-36.0); MEAN CORPUSCULAR VOLUME 103 fl (80-97); MONOCYTES % (AUTO) 3.8 % (3-13); PLATELET COUNT 213 10^3/uL (150-450); RED BLOOD COUNT 4.66 10^6/uL (3.72-5.28); RED CELL DISTRIBUTION WIDTH 14.4 % (11.5-14.0); TOTAL CELLS COUNTED % (AUTO) 100 %
[2017-09-25 18:06] LABS: WHITE BLOOD COUNT 8.8 10^3/uL (4.0-10.5)
--- NOTE | 2017-09-25 19:03 | RADIOLOGY REPORT (SQ) ---
EXAM DESCRIPTION: [employer] COMPLETED DATE/TIME: 09/25/2017 6:35 pm REASON FOR STUDY: CKD stage 3 COMPARISON: None. TECHNIQUE: Dynamic and static grayscale images acquired of the kidneys and bladder and recorded on P ACS. Additional selected color Doppler and spectral images recorded. LIMITATIONS: Acoustic impedance yields a mildly limited examination. FINDINGS: RIGHT KIDNEY: Normal size. Normal echogenicity. No solid or suspicious masses. No h ydronephrosis. No calcifications. LEFT KIDNEY: Normal size. Normal echogenicity. No solid or suspicious masses. No hydronephrosi s. No calcifications. BLADDER: No masses. Ureteral jets were not visualized. OTHER FINDINGS: No other significant finding. IMPRESSION: Mildly limited exam. Grossly normal sonographic appearance of the kidneys. No evidence of hydronephrosis or urinary obstruction. TECHNICAL DOCUMENTATION: JOB ID: [id number] [employer]- All Rights Reserved Reading location - IP/workstation name: [email or web address]
[2017-09-25 19:53] LABS: ALANINE AMINOTRANSFERASE 27 U/L (9-52); ALBUMIN 3.7 g/dL (3.5-5.0); ALKALINE PHOSPHATASE 78 U/L (38-126); ANION GAP 8 (5-19); ASPARTATE AMINO TRANSFERASE 25 U/L (14-36); BILIRUBIN,DIRECT 0.5 mg/dL (0.0-0.4); BILIRUBIN,TOTAL 0.7 mg/dL (0.2-1.3); BLOOD UREA NITROGEN 30 mg/dL (7-20); CALCIUM 9.2 mg/dL (8.4-10.2); CARBON DIOXIDE 26 mmol/L (22-30); CHLORIDE 106 mmol/L (98-107); GLUCOSE 144 mg/dL (75-110); SODIUM 140.1 mmol/L (137-145); TOTAL PROTEIN 8.9 g/dL (6.3-8.2)
[2017-09-26 04:13] LABS: ABSOLUTE LYMPHOCYTES (AUTO) 0.5 10^3/uL (0.5-4.7); ABSOLUTE MONOCYTES (AUTO) 0.6 10^3/uL (0.1-1.4); ABSOLUTE NEUT (AUTO) 8.4 10^3/uL (1.7-8.2); BASOPHILS % (AUTO) 0.1 % (0-2); HEMATOCRIT 45.9 % (36.0-47.0); HEMOGLOBIN 15.3 g/dL (12.0-15.5); LYMPHOCYTES % (AUTO) 5.1 % (13-45); MEAN CORPUSCULAR HEMOGLOBIN 34.8 pg (27.0-33.4); MEAN CORPUSCULAR HGB CONC 33.4 g/dL (32.0-36.0); MEAN CORPUSCULAR VOLUME 104 fl (80-97); MONOCYTES % (AUTO) 6.8 % (3-13); PLATELET COUNT 170 10^3/uL (150-450); RED CELL DISTRIBUTION WIDTH 14.5 % (11.5-14.0); TOTAL CELLS COUNTED % (AUTO) 100 %; WHITE BLOOD COUNT 9.5 10^3/uL (4.0-10.5)
[2017-09-26 04:30] LABS: ANION GAP 9 (5-19); BLOOD UREA NITROGEN 31 mg/dL (7-20); CALCIUM 8.7 mg/dL (8.4-10.2); CARBON DIOXIDE 23 mmol/L (22-30); CHLORIDE 109 mmol/L (98-107); GLUCOSE 118 mg/dL (75-110); PHOSPHORUS 4.6 mg/dL (2.5-4.5); POTASSIUM 4.4 mmol/L (3.6-5.0)
[2017-09-26] MEDS: HYDRALAZINE HCL 25 MG TABLET PO SCH ×3 (06:17→21:16)
[2017-09-26] MEDS: LEVOTHYROXINE SODIUM 0.025 MG TABLET PO SCH (06:17)
--- NOTE | 2017-09-26 07:19 | RADIOLOGY REPORT (SQ) ---
EXAM DESCRIPTION: CHEST SINGLE VIEW CLINICAL HISTORY: pna COMPARISON: 09/24/2017 FINDINGS: Single frontal view of the chest. The cardiomediastinal silhouette has normal size and contour. Stable left upper lobe bronchiectasis. Bilateral lobe pulmonary nodule is stable. Chronic interstitial changes. No pneumothorax or large effusion. No acute lobar consolidation. No acute osseous abnormalities. Upper abdominal soft tissues are unremarkable. IMPRESSION: 1. Stable appearance of the chest.
[2017-09-26] MEDS: OMEGA-3 ACID ETHYL ESTERS 1 GM CAPSULE PO SCH (09:53)
[2017-09-26] MEDS: POTASSIUM CHLORIDE 10 MEQ TABLET.SA PO SCH (09:53)
[2017-09-26] MEDS: FUROSEMIDE 40 MG TABLET PO SCH (09:54)
[2017-09-26] MEDS: ASPIRIN 81 MG TABLET, ENT COATED PO SCH (09:54)
[2017-09-26] MEDS: FLUTICASONE NASAL SPRAY 50 MCG/SPRY 120 SPRAY/16 GM NASL SCH (09:55)
[2017-09-26] MEDS: ENOXAPARIN SODIUM INJ 30 MG/0.3 ML DISP.SYRIN SUBCUT SCH (09:58)
[2017-09-26] MEDS: CARVEDILOL 6.25 MG TABLET PO SCH ×2 (09:59→21:17)
--- NOTE | 2017-09-26 12:03 | PDOC PROGRESS REPORT ---
Subjective Progress Note for:: 09/26/17 Subjective:: Patient was seen by the bedside, she refused to take her Coreg though the heart rate on the monitor is in the 80s, nurses says she had a low heart rate in the 40s at night which is expected .. She is stable not requiring any positive pressure ventilation, she probably could be downgraded to medical floor no need for monitoring Reason For Visit: ACUTE HYPOXEMIC RESPIRATORY FAILURE,BRONCHOIECTASI Physical Exam Vital Signs: Temp Pulse Resp BP Pulse Ox 97.9 F 59 L 17 115/51 L 97 09/26/17 07:46 09/26/17 07:46 09/26/17 08:12 09/26/17 08:12 09/26/17 08:12 Intake & Output 09/25/17 09/26/17 09/27/17 05:59 06:59 06:59 Intake Total 200 Output Total Balance 200 Weight General appearance: PRESENT: no acute distress Eye exam: PRESENT: PERRLA Respiratory exam: PRESENT: clear to auscultation rafiq Cardiovascular exam: PRESENT: +S1, +S2 GI/Abdominal exam: PRESENT: soft Neurological exam: PRESENT: alert Results Laboratory Results: 09/26/17 04:04 09/26/17 04:04 09/25/17 09/25/17 09/25/17 17:35 17:35 19:31 WBC 8.8 D RBC 4.66 Hgb 16.5 H Hct 48.2 H MCV 103 H MCH 35.3 H MCHC 34.2 RDW 14.4 H Plt Count 213 Seg Neutrophils % 90.0 H Lymphocytes % 5.9 L Monocytes % 3.8 Eosinophils % 0.1 Basophils % 0.2 Absolute Neutrophils 7.9 Absolute Lymphocytes 0.5 Absolute Monocytes 0.3 Absolute Eosinophils 0.0 Absolute Basophils 0.0 Sodium Cancelled 140.1 Potassium Cancelled 5.0 D Chloride Cancelled 106 Carbon Dioxide Cancelled 26 Anion Gap Cancelled 8 BUN Cancelled 30 H Creatinine Cancelled 1.70 H Est GFR ( Amer) Cancelled 36 L Est GFR (Non-Af Amer) Cancelled 30 L Glucose Cancelled 144 H Calcium Cancelled 9.2 Phosphorus Magnesium Total Bilirubin Cancelled 0.7 AST Cancelled 25 ALT Cancelled 27 Alkaline Phosphatase Cancelled 78 Total Protein Cancelled 8.9 H Albumin Cancelled 3.7 Vitamin B12 Cancelled 387.0 09/26/17 09/26/17 04:04 04:04 WBC 9.5 RBC 4.40 Hgb 15.3 Hct 45.9 MCV 104 H MCH 34.8 H MCHC 33.4 RDW 14.5 H Plt Count 170 Seg Neutrophils % 88.0 H Lymphocytes % 5.1 L Monocytes % 6.8 Eosinophils % 0.0 Basophils % 0.1 Absolute Neutrophils 8.4 H Absolute Lymphocytes 0.5 Absolute Monocytes 0.6 Absolute Eosinophils 0.0 Absolute Basophils 0.0 Sodium 141.0 Potassium 4.4 Chloride 109 H Carbon Dioxide 23 Anion Gap 9 BUN 31 H Creatinine 1.68 H Est GFR ( Amer) 37 L Est GFR (Non-Af Amer) 30 L Glucose 118 H Calcium 8.7 Phosphorus 4.6 H Magnesium 1.3 L Total Bilirubin AST ALT Alkaline Phosphatase Total Protein Albumin Vitamin B12 09/24/17 19:40 Clean Catch Midstream Urine Culture - Final Mixed Urogenital Sheila 09/24/17 09/24/17 09/25/17 20:00 20:00 01:11 Creatine Kinase 35 34 CK-MB (CK-2) 0.58 Troponin I < 0.012 09/25/17 09/25/17 09/25/17 01:11 06:50 06:50 Creatine Kinase 33 CK-MB (CK-2) 0.38 0.52 Troponin I < 0.012 < 0.012 Impressions: Chest/Abdomen CTA 09/24/17 15:07 IMPRESSION: 1. There is no evidence of pulmonary emboli. 2. Extensive chronic changes in the lungs as described. 3. Left-sided superior vena cava. Renal Ultrasound 09/25/17 00:00 IMPRESSION: Mildly limited exam. Grossly normal sonographic appearance of the kidneys. No evidence of hydronephrosis or urinary obstruction. Chest X-Ray 09/26/17 06:00 IMPRESSION: 1. Stable appearance of the chest. Assessment & Plan - Diagnosis (1) Acute respiratory failure with hypoxemia Is this a current diagnosis for this admission?: Yes (2) Mixed acid base balance disorder Is this a current diagnosis for this admission?: Yes (3) Chronic interstitial lung disease Is this a current diagnosis for this admission?: Yes (4) Chronic kidney disease, stage 3 Is this a current diagnosis for this admission?: Yes (5) Hyperkalemia Is this a current diagnosis for this admission?: Yes Plan: This is resolved
--- NOTE | 2017-09-26 17:14 | PDOC CONSULTATION ---
Consultation Consult Date: 09/25/17 Attending physician:: TRI HAMMOND Consult reason:: resp failure History of Present Illness Admission Date/PCP: 09/24/17 17:55 MAGDI REYES MD History of Present Illness: NELI BAEZ is a 71 year old female, she came to the emergency room for evaluation of shortness of breath, diaphoresis of acute onset, she was transferred to the emergency room by EMS. She was found to be hypoxemic she was treated with bronchodilators on the way to the emergency room and she also had steroid. In the emergency room a CTA chest was done, it showed stable chronic changes in the left upper lobe with elevation in the left hilum and scarring with bronchiectasis. There is stable right pulmonary nodule there was no pulmonary emboli visualized. The ABG on FiO2 of 15 L, PO2 65.3, PCO2 43.3, bicarbonate 21.7, pH 7.32, this is consistent with severe hypoxemia with mixed acid-base disorder. She is known to [facility] for interstial lung dx Past Medical History Cardiac Medical History: Reports: Congestive Heart Failure, Coronary Artery Disease, Myocardial Infarction, Hyperlipidema, Hypertension, Peripheral Vascular Disease, Other - Pulmonary hypertension Pulmonary Medical History: Reports: Other - Chronic interstitial lung disease Denies: Tuberculosis Renal/ Medical History: Reports: Chronic Kidney Disease, Other - Chronic kidney disease stage 3 GI Medical History: Denies: Cirrhosis, Crohn's Disease, Hepatitis, Ulcerative Colitis Musculoskeltal Medical History: Reports: Arthritis Denies: Gout Psychiatric Medical History: Denies: Bipolar Disorder, Dementia, Schizoaffective Disorder Traumatic Medical History: Denies: Traumatic Brain Injury Hematology: Denies: Sickle Cell Disease Infectious Medical History: Denies: Hepatitis B Past Surgical History Past Surgical History: Reports: Tonsillectomy Social History Information Source: [facility] Records Lives with: Family Smoking Status: Former Smoker Passive smoke exposure as: Both Frequency of Alcohol Use: Occasional Hx Recreational Drug Use: No Hx Prescription Drug Abuse: No Have you had any respiratory illnesses as a child?: No Have you been exposed to any sick contacts recently?: No Have you had any recent respiratory illnesses?: No Have you travelled outside of [place] in the past 12 months?: No Family History Family History: Hypertension Parental Family History Reviewed: No Children Family History Reviewed: No Sibling(s) Family History Reviewed.: No Medication/Allergy Home Medications: Albuterol Sulfate [Ventolin HFA MDI 18 GM] 2 puff IH Q4HP PRN 09/24/17 Aspirin [Ecotrin 81 mg EC Tablet] 81 mg PO DAILY 09/24/17 Carvedilol [Coreg 6.25 mg Tablet] 12.5 mg PO Q12 09/24/17 Fluticasone Propionate [Flonase Nasal Joanna 50 Mcg/Joanna 16 gm] 1 spray NASL DAILY 09/24/17 Furosemide [Lasix 40 mg Tablet] 40 mg PO DAILY 09/24/17 Hydralazine HCl [Apresoline 25 mg Tablet] 25 mg PO Q8 09/24/17 Levocetirizine Dihydrochloride [Xyzal] 5 mg PO QPM 09/24/17 Levothyroxine Sodium [Synthroid 0.025 mg Tablet] 0.025 mg PO Q6AM 09/24/17 Nitroglycerin [Nitrostat] 0.4 mg SL Q5MP PRN 09/24/17 Lott-3 Fatty Acids/Fish Oil [Fish Oil 1,000 mg Capsule] 1 cap PO DAILY Ondansetron HCl [Zofran 4 mg Tablet] 4 mg PO Q12HP PRN 09/24/17 Potassium Chloride [Klor-Con M20] 20 meq PO DAILY 09/24/17 Allergies/Adverse Reactions: Sulfa (Sulfonamide Antibiotics) Allergy (Verified 05/26/16 11:36) Review of Systems Constitutional: PRESENT: fatigue, weakness. ABSENT: chills, fever(s), night sweats, weight gain, weight loss Eyes: ABSENT: visual disturbances Ears: ABSENT: hearing changes Nose, Mouth, and Throat: ABSENT: mouth pain, sore throat Cardiovascular: ABSENT: orthropnea, palpitations Respiratory: ABSENT: hemoptysis Gastrointestinal: PRESENT: nausea. ABSENT: abdominal pain, bloating, coffee ground emesis, dysphagia, heartburn, hematemesis, hematochezia, melena, vomiting Genitourinary: PRESENT: nocturia. ABSENT: difficulty urinating, dysuria, hematuria Integumentary: ABSENT: pruritus, rash Neurological: ABSENT: abnormal movements, abnormal speech, confusion, focal weakness, frequent falls, lack of coordination, memory loss Psychiatric: ABSENT: hallucinations Endocrine: ABSENT: cold intolerance, heat intolerance, menstrual abnormalities Hematologic/Lymphatic: PRESENT: easy bruising Physical Exam Vital Signs: Temp Pulse Resp BP Pulse Ox 97.5 F 63 15 174/69 H 90 L 09/25/17 15:16 09/25/17 19:00 09/25/17 16:00 09/25/17 15:43 09/25/17 16:00 Intake & Output 09/24/17 09/25/17 09/26/17 06:59 06:59 07:59 Intake Total 387 Balance 387 Weight 108.862 kg 106.7 kg General appearance: PRESENT: cooperative, mild distress, morbidly obese, well- developed Head exam: PRESENT: atraumatic, normocephalic Eye exam: PRESENT: conjunctiva pale, EOMI. ABSENT: nystagmus, periorbital swelling, scleral icterus Mouth exam: PRESENT: dry mucosa, neck supple, tongue midline Neck exam: ABSENT: carotid bruit, JVD, lymphadenopathy, thyromegaly, tracheal deviation, tracheostomy Respiratory exam: PRESENT: decreased breath sounds, prolonged expiratory phas, rales, rhonchi, symmetrical, tachypnea. ABSENT: retraction, stridor Cardiovascular exam: PRESENT: RRR, +S1, +S2, tachycardia Pulses: PRESENT: normal radial pulses GI/Abdominal exam: PRESENT: diminished bowel sounds, soft Extremities exam: ABSENT: calf tenderness, clubbing Musculoskeletal exam: ABSENT: deformity, dislocation Neurological exam: PRESENT: awake Skin exam: PRESENT: dry, warm Results Laboratory Results: 09/25/17 17:35 09/24/17 09/24/17 09/25/17 19:40 19:50 06:50 WBC 2.9 L D RBC 4.52 Hgb 16.0 H Hct 47.2 H MCV 105 H MCH 35.5 H MCHC 33.9 RDW 14.9 H Plt Count 172 Seg Neutrophils % 85.7 H Lymphocytes % 12.8 L Monocytes % 1.2 L Eosinophils % 0.0 Basophils % 0.3 Absolute Neutrophils 2.4 Absolute Lymphocytes 0.4 L Absolute Monocytes 0.0 L Absolute Eosinophils 0.0 Absolute Basophils 0.0 Carbonic Acid 1.30 HCO3/H2CO3 Ratio 16:1 ABG pH 7.32 L ABG pCO2 43.3 ABG pO2 65.3 L ABG HCO3 21.7 ABG O2 Saturation 91.2 L ABG Base Excess -4.4 FiO2 15L Sodium Potassium Chloride Carbon Dioxide Anion Gap BUN Creatinine Est GFR ( Amer) Est GFR (Non-Af Amer) Glucose Calcium Total Bilirubin AST ALT Alkaline Phosphatase Total Protein Albumin Vitamin B12 Urine Color YELLOW Urine Appearance CLEAR Urine pH 5.0 Ur Specific [place] 1.036 Urine Protein NEGATIVE Urine Glucose (UA) NEGATIVE Urine Ketones NEGATIVE Urine Blood NEGATIVE Urine Nitrite NEGATIVE Ur Leukocyte Esterase NEGATIVE Urine WBC (Auto) 1 Urine RBC (Auto) 0 09/25/17 09/25/17 09/25/17 06:50 17:35 17:35 WBC 8.8 D RBC 4.66 Hgb 16.5 H Hct 48.2 H MCV 103 H MCH 35.3 H MCHC 34.2 RDW 14.4 H Plt Count 213 Seg Neutrophils % 90.0 H Lymphocytes % 5.9 L Monocytes % 3.8 Eosinophils % 0.1 Basophils % 0.2 Absolute Neutrophils 7.9 Absolute Lymphocytes 0.5 Absolute Monocytes 0.3 Absolute Eosinophils 0.0 Absolute Basophils 0.0 Carbonic Acid HCO3/H2CO3 Ratio ABG pH ABG pCO2 ABG pO2 ABG HCO3 ABG O2 Saturation ABG Base Excess FiO2 Sodium 139.1 Cancelled Potassium 6.2 H* Cancelled Chloride 109 H Cancelled Carbon Dioxide 18 L Cancelled Anion Gap 12 Cancelled BUN 28 H Cancelled Creatinine 1.60 H Cancelled Est GFR ( Amer) 39 L Cancelled Est GFR (Non-Af Amer) 32 L Cancelled Glucose 142 H Cancelled Calcium 9.0 Cancelled Total Bilirubin Cancelled AST Cancelled ALT Cancelled Alkaline Phosphatase Cancelled Total Protein Cancelled Albumin Cancelled Vitamin B12 Cancelled Urine Color Urine Appearance Urine pH Ur Specific [place] Urine Protein Urine Glucose (UA) Urine Ketones Urine Blood Urine Nitrite Ur Leukocyte Esterase Urine WBC (Auto) Urine RBC (Auto) 09/24/17 09/24/17 09/25/17 20:00 20:00 01:11 Creatine Kinase 35 34 CK-MB (CK-2) 0.58 Troponin I < 0.012 09/25/17 09/25/17 09/25/17 01:11 06:50 06:50 Creatine Kinase 33 CK-MB (CK-2) 0.38 0.52 Troponin I < 0.012 < 0.012 Impressions: Chest X-Ray 09/24/17 14:21 IMPRESSION: CARDIAC ENLARGEMENT. VASCULAR CONGESTION. Chest/Abdomen CTA 09/24/17 15:07 IMPRESSION: 1. There is no evidence of pulmonary emboli. 2. Extensive chronic changes in the lungs as described. 3. Left-sided superior vena cava. Renal Ultrasound 09/25/17 00:00 IMPRESSION: Mildly limited exam. Grossly normal sonographic appearance of the kidneys. No evidence of hydronephrosis or urinary obstruction. Assessment & Plan - Diagnosis (1) Acute respiratory failure with hypoxemia Is this a current diagnosis for this admission?: Yes Plan: continuous pulse ox keep SAO2 >90 (2) Chronic interstitial lung disease Is this a current diagnosis for this admission?: Yes Plan: may respond to gentle diuresis (3) Chronic kidney disease, stage 3 Is this a current diagnosis for this admission?: Yes Plan: stable (4) Hypertension Is this a current diagnosis for this admission?: Yes - Time Total Critical Time (Minutes): 45
--- NOTE | 2017-09-26 17:16 | PDOC PROGRESS REPORT ---
Subjective Progress Note for:: 09/26/17 Subjective:: i am better Reason For Visit: ACUTE HYPOXEMIC RESPIRATORY FAILURE,BRONCHOIECTASI Physical Exam Vital Signs: Temp Pulse Resp BP Pulse Ox 97.9 F 59 L 17 115/51 L 97 09/26/17 07:46 09/26/17 07:46 09/26/17 08:12 09/26/17 08:12 09/26/17 08:12 Intake & Output 09/25/17 09/26/17 09/27/17 05:59 06:59 06:59 Intake Total 200 Output Total Balance 200 Weight General appearance: PRESENT: no acute distress, cooperative, disheveled, morbidly obese, well-developed Head exam: PRESENT: atraumatic, normocephalic Eye exam: PRESENT: conjunctiva pale, EOMI. ABSENT: nystagmus, periorbital swelling, scleral icterus Mouth exam: PRESENT: moist, neck supple, tongue midline Neck exam: ABSENT: carotid bruit, JVD, lymphadenopathy, thyromegaly, tracheal deviation, tracheostomy Respiratory exam: PRESENT: decreased breath sounds, prolonged expiratory phas, rales, rhonchi, symmetrical, unlabored. ABSENT: retraction, stridor Cardiovascular exam: PRESENT: RRR, +S1 Pulses: PRESENT: normal radial pulses GI/Abdominal exam: PRESENT: diminished bowel sounds, soft Extremities exam: ABSENT: calf tenderness, clubbing Musculoskeletal exam: ABSENT: deformity, dislocation Neurological exam: PRESENT: alert, awake Psychiatric exam: PRESENT: normal mood Skin exam: PRESENT: dry, warm Results Laboratory Results: 09/26/17 04:04 09/26/17 04:04 09/25/17 09/25/17 09/25/17 17:35 17:35 19:31 WBC 8.8 D RBC 4.66 Hgb 16.5 H Hct 48.2 H MCV 103 H MCH 35.3 H MCHC 34.2 RDW 14.4 H Plt Count 213 Seg Neutrophils % 90.0 H Lymphocytes % 5.9 L Monocytes % 3.8 Eosinophils % 0.1 Basophils % 0.2 Absolute Neutrophils 7.9 Absolute Lymphocytes 0.5 Absolute Monocytes 0.3 Absolute Eosinophils 0.0 Absolute Basophils 0.0 Sodium Cancelled 140.1 Potassium Cancelled 5.0 D Chloride Cancelled 106 Carbon Dioxide Cancelled 26 Anion Gap Cancelled 8 BUN Cancelled 30 H Creatinine Cancelled 1.70 H Est GFR ( Amer) Cancelled 36 L Est GFR (Non-Af Amer) Cancelled 30 L Glucose Cancelled 144 H Calcium Cancelled 9.2 Phosphorus Magnesium Total Bilirubin Cancelled 0.7 AST Cancelled 25 ALT Cancelled 27 Alkaline Phosphatase Cancelled 78 Total Protein Cancelled 8.9 H Albumin Cancelled 3.7 Vitamin B12 Cancelled 387.0 09/26/17 09/26/17 04:04 04:04 WBC 9.5 RBC 4.40 Hgb 15.3 Hct 45.9 MCV 104 H MCH 34.8 H MCHC 33.4 RDW 14.5 H Plt Count 170 Seg Neutrophils % 88.0 H Lymphocytes % 5.1 L Monocytes % 6.8 Eosinophils % 0.0 Basophils % 0.1 Absolute Neutrophils 8.4 H Absolute Lymphocytes 0.5 Absolute Monocytes 0.6 Absolute Eosinophils 0.0 Absolute Basophils 0.0 Sodium 141.0 Potassium 4.4 Chloride 109 H Carbon Dioxide 23 Anion Gap 9 BUN 31 H Creatinine 1.68 H Est GFR ( Amer) 37 L Est GFR (Non-Af Amer) 30 L Glucose 118 H Calcium 8.7 Phosphorus 4.6 H Magnesium 1.3 L Total Bilirubin AST ALT Alkaline Phosphatase Total Protein Albumin Vitamin B12 09/24/17 19:40 Clean Catch Midstream Urine Culture - Final Mixed Urogenital Sheila 09/24/17 09/24/17 09/25/17 20:00 20:00 01:11 Creatine Kinase 35 34 CK-MB (CK-2) 0.58 Troponin I < 0.012 09/25/17 09/25/17 09/25/17 01:11 06:50 06:50 Creatine Kinase 33 CK-MB (CK-2) 0.38 0.52 Troponin I < 0.012 < 0.012 Impressions: Chest/Abdomen CTA 09/24/17 15:07 IMPRESSION: 1. There is no evidence of pulmonary emboli. 2. Extensive chronic changes in the lungs as described. 3. Left-sided superior vena cava. Renal Ultrasound 09/25/17 00:00 IMPRESSION: Mildly limited exam. Grossly normal sonographic appearance of the kidneys. No evidence of hydronephrosis or urinary obstruction. Chest X-Ray 09/26/17 06:00 IMPRESSION: 1. Stable appearance of the chest. Assessment & Plan - Diagnosis (1) Acute respiratory failure with hypoxemia Is this a current diagnosis for this admission?: Yes Plan: continuous pulse ox keep SAO2 >90 (2) Chronic interstitial lung disease Is this a current diagnosis for this admission?: Yes Plan: may respond to gentle diuresis (3) Chronic kidney disease, stage 3 Is this a current diagnosis for this admission?: Yes Plan: stable (4) Hypertension Is this a current diagnosis for this admission?: Yes - Time Total Critical Time (Minutes): 35
[2017-09-26] MEDS: CETIRIZINE 5 MG TABLET PO SCH (17:24)
[2017-09-26] MEDS ORDERED: LEVOFLOXACIN 750 MG/D5W RTU 750 MG/150 ML RTUPB IV SCH (18:00)
--- NOTE | 2017-09-26 21:55 | EKG REPORT ---
SEVERITY:- ABNORMAL ECG - SINUS RHYTHM LEFT BUNDLE BRANCH BLOCK : Confirmed by: Lynda Rossi 26-Sep-2017 21:55:28
[2017-09-27] MEDS: LEVOTHYROXINE SODIUM 0.025 MG TABLET PO SCH (05:26)
[2017-09-27] MEDS: HYDRALAZINE HCL 25 MG TABLET PO SCH ×3 (05:27→21:25)
[2017-09-27 07:02] LABS: ABSOLUTE EOSINOPHILS # (AUTO) 0.2 10^3/uL (0.0-0.6); ABSOLUTE LYMPHOCYTES (AUTO) 2.1 10^3/uL (0.5-4.7); ABSOLUTE MONOCYTES (AUTO) 0.5 10^3/uL (0.1-1.4); ABSOLUTE NEUT (AUTO) 4.3 10^3/uL (1.7-8.2); BASOPHILS % (AUTO) 0.3 % (0-2); HEMATOCRIT 42.4 % (36.0-47.0); HEMOGLOBIN 14.1 g/dL (12.0-15.5); LYMPHOCYTES % (AUTO) 28.9 % (13-45); MEAN CORPUSCULAR HEMOGLOBIN 34.9 pg (27.0-33.4); MEAN CORPUSCULAR HGB CONC 33.3 g/dL (32.0-36.0); MEAN CORPUSCULAR VOLUME 105 fl (80-97); MONOCYTES % (AUTO) 7.5 % (3-13); PLATELET COUNT 181 10^3/uL (150-450); RED BLOOD COUNT 4.06 10^6/uL (3.72-5.28); RED CELL DISTRIBUTION WIDTH 15.1 % (11.5-14.0); SEGMENTED NEUTROPHILS % (AUTO) 60.3 % (42-78); TOTAL CELLS COUNTED % (AUTO) 100 %; WHITE BLOOD COUNT 7.2 10^3/uL (4.0-10.5)
[2017-09-27 07:23] LABS: ANION GAP 8 (5-19); BLOOD UREA NITROGEN 45 mg/dL (7-20); CARBON DIOXIDE 24 mmol/L (22-30); CHLORIDE 110 mmol/L (98-107); GLUCOSE 79 mg/dL (75-110); SODIUM 142.2 mmol/L (137-145)
--- NOTE | 2017-09-27 10:01 | RADIOLOGY REPORT (SQ) ---
EXAM DESCRIPTION: CHEST PA/LAT COMPLETED DATE/TIME: 09/27/2017 9:20 am REASON FOR STUDY: sob COMPARISON: 10/19/2013 EXAM PARAMETERS: NUMBER OF VIEWS: two views TECHNIQUE: Digital Frontal and Lateral radiographic views of the chest acquired. RADIATION DOSE: NA LIMITATIONS: none FINDINGS: LUNGS AND PLEURA: Chronic left apical pleural thickening, fibrosis/scar in the left apex- -left upper lobe and superior retraction of the left hilum. Slight state right apical pleural thick ening and scar atelectasis at the right lung base. No acute pulmonary findings. No pneumothorax or pleural effusion. MEDIASTINUM AND HILAR STRUCTURES: Stable appearance. HEART AND VASCULAR STRUCTURES: Heart normal size. No evidence for failure. BONES: No acute findings. HARDWARE: None in the chest. OTHER: No other significant finding. IMPRESSION: 1 stable chronic changes in the lungs since the prior examination dated 10/19/2013. No ac flako pulmonary findings. NO SIGNIFICANT RADIOGRAPHIC FINDING IN THE CHEST. TECHNICAL DOCUMENTATION: JOB ID: [id number] [employer]- All Rights Reserved Reading location - IP/workstation name: [email or web address]
[2017-09-27] MEDS: CARVEDILOL 6.25 MG TABLET PO SCH ×2 (10:31→21:25)
[2017-09-27] MEDS: POTASSIUM CHLORIDE 10 MEQ TABLET.SA PO SCH (10:33)
[2017-09-27] MEDS: FLUTICASONE NASAL SPRAY 50 MCG/SPRY 120 SPRAY/16 GM NASL SCH (10:33)
[2017-09-27] MEDS: FUROSEMIDE 40 MG TABLET PO SCH (10:33)
[2017-09-27] MEDS: ACETAMINOPHEN 325 MG TABLET PO PRN (10:33)
[2017-09-27] MEDS: ASPIRIN 81 MG TABLET, ENT COATED PO SCH (10:33)
[2017-09-27] MEDS: OMEGA-3 ACID ETHYL ESTERS 1 GM CAPSULE PO SCH (10:33)
[2017-09-27] MEDS: ENOXAPARIN SODIUM INJ 30 MG/0.3 ML DISP.SYRIN SUBCUT SCH (10:33)
--- NOTE | 2017-09-27 10:53 | PDOC PROGRESS REPORT ---
Subjective Progress Note for:: 09/27/17 Subjective:: I HAVE A H/A Reason For Visit: ACUTE HYPOXEMIC RESPIRATORY FAILURE,BRONCHOIECTASI Physical Exam Vital Signs: Temp Pulse Resp BP Pulse Ox 97.9 F 64 16 135/66 H 92 09/27/17 04:00 09/27/17 04:00 09/27/17 04:00 09/27/17 04:00 09/27/17 04:00 Intake & Output 09/26/17 09/27/17 09/28/17 06:59 06:59 06:59 Intake Total 850 Output Total 800 Balance 50 Weight 108.2 kg General appearance: PRESENT: no acute distress, cooperative, disheveled, morbidly obese Head exam: PRESENT: atraumatic, normocephalic Eye exam: PRESENT: conjunctiva pale, EOMI. ABSENT: nystagmus, periorbital swelling, scleral icterus Mouth exam: PRESENT: dry mucosa, neck supple, tongue midline Neck exam: ABSENT: carotid bruit, JVD, lymphadenopathy, thyromegaly, tracheal deviation, tracheostomy Respiratory exam: PRESENT: decreased breath sounds, prolonged expiratory phas, rhonchi, symmetrical, unlabored. ABSENT: rales, retraction, stridor Cardiovascular exam: PRESENT: RRR, +S1, +S2 Pulses: PRESENT: normal radial pulses GI/Abdominal exam: PRESENT: diminished bowel sounds, soft Extremities exam: ABSENT: calf tenderness, clubbing Musculoskeletal exam: ABSENT: deformity, dislocation Neurological exam: PRESENT: alert, awake Skin exam: PRESENT: dry, warm Results Laboratory Results: 09/27/17 05:47 09/27/17 05:47 09/27/17 09/27/17 05:47 05:47 WBC 7.2 RBC 4.06 Hgb 14.1 Hct 42.4 MCV 105 H MCH 34.9 H MCHC 33.3 RDW 15.1 H Plt Count 181 Seg Neutrophils % 60.3 Lymphocytes % 28.9 Monocytes % 7.5 Eosinophils % 3.0 Basophils % 0.3 Absolute Neutrophils 4.3 Absolute Lymphocytes 2.1 Absolute Monocytes 0.5 Absolute Eosinophils 0.2 Absolute Basophils 0.0 Sodium 142.2 Potassium 4.0 Chloride 110 H Carbon Dioxide 24 Anion Gap 8 BUN 45 H Creatinine 1.75 H Est GFR ( Amer) 35 L Est GFR (Non-Af Amer) 29 L Glucose 79 Calcium 8.0 L 03/09/18 19:40 Clean Catch Midstream Urine Culture - Final Mixed Urogenital Sheila 09/24/17 09/24/17 09/25/17 20:00 20:00 01:11 Creatine Kinase 35 34 CK-MB (CK-2) 0.58 Troponin I < 0.012 09/25/17 09/25/17 09/25/17 01:11 06:50 06:50 Creatine Kinase 33 CK-MB (CK-2) 0.38 0.52 Troponin I < 0.012 < 0.012 Impressions: Chest/Abdomen CTA 09/24/17 15:07 IMPRESSION: 1. There is no evidence of pulmonary emboli. 2. Extensive chronic changes in the lungs as described. 3. Left-sided superior vena cava. Renal Ultrasound 09/25/17 00:00 IMPRESSION: Mildly limited exam. Grossly normal sonographic appearance of the kidneys. No evidence of hydronephrosis or urinary obstruction. Assessment & Plan - Diagnosis (1) Acute respiratory failure with hypoxemia Is this a current diagnosis for this admission?: Yes Plan: 6 MIN WALK (2) Chronic interstitial lung disease Is this a current diagnosis for this admission?: Yes Plan: may respond to gentle diuresis (3) Chronic kidney disease, stage 3 Is this a current diagnosis for this admission?: Yes Plan: stable (4) Hypertension Is this a current diagnosis for this admission?: Yes
--- NOTE | 2017-09-27 11:58 | PDOC PROGRESS REPORT ---
Subjective Progress Note for:: 09/27/17 Subjective:: Patient was admitting in the hospitals shortness of the breath after starting the beta-aidan per cardiology Patient is feeling much better after currently on oxygen's but without oxygen patient still feels short of breath Patient CT angiogram was negative for any acute pulmonary embolism And have a recent echocardiogram done by social security assessor last week with some diastolic dysfunctions Patient's denied any chest pain denied any shortness of the breath Reason For Visit: ACUTE HYPOXEMIC RESPIRATORY FAILURE,BRONCHOIECTASI Physical Exam Vital Signs: Temp Pulse Resp BP Pulse Ox 98.8 F 58 L 22 H 135/64 H 93 09/27/17 07:28 09/27/17 07:28 09/27/17 07:28 09/27/17 07:28 09/27/17 07:28 Intake & Output 09/26/17 09/27/17 09/28/17 06:59 06:59 06:59 Intake Total 850 Output Total 800 Balance 50 Weight 108.2 kg General appearance: PRESENT: no acute distress, well-developed, well-nourished Head exam: PRESENT: atraumatic, normocephalic Eye exam: PRESENT: conjunctiva pink, EOMI, PERRLA. ABSENT: scleral icterus Ear exam: PRESENT: normal external ear exam Mouth exam: PRESENT: moist, tongue midline Neck exam: PRESENT: full ROM. ABSENT: carotid bruit, JVD, lymphadenopathy, thyromegaly Respiratory exam: PRESENT: decreased breath sounds Cardiovascular exam: PRESENT: RRR. ABSENT: diastolic murmur, rubs, systolic murmur Pulses: PRESENT: normal dorsalis pedis pul, +2 pedal pulses bilateral Vascular exam: PRESENT: normal capillary refill GI/Abdominal exam: PRESENT: normal bowel sounds, soft. ABSENT: distended, guarding, mass, organolmegaly, rebound, tenderness Rectal exam: PRESENT: deferred Extremities exam: ABSENT: pedal edema Musculoskeletal exam: PRESENT: ambulatory Neurological exam: PRESENT: alert, awake, oriented to person, oriented to place , oriented to time, oriented to situation, CN II-XII grossly intact. ABSENT: motor sensory deficit Psychiatric exam: PRESENT: appropriate affect, normal mood. ABSENT: homicidal ideation, suicidal ideation Skin exam: PRESENT: dry, intact, warm. ABSENT: cyanosis, rash Results Laboratory Results: 09/27/17 05:47 09/27/17 05:47 09/27/17 09/27/17 05:47 05:47 WBC 7.2 RBC 4.06 Hgb 14.1 Hct 42.4 MCV 105 H MCH 34.9 H MCHC 33.3 RDW 15.1 H Plt Count 181 Seg Neutrophils % 60.3 Lymphocytes % 28.9 Monocytes % 7.5 Eosinophils % 3.0 Basophils % 0.3 Absolute Neutrophils 4.3 Absolute Lymphocytes 2.1 Absolute Monocytes 0.5 Absolute Eosinophils 0.2 Absolute Basophils 0.0 Sodium 142.2 Potassium 4.0 Chloride 110 H Carbon Dioxide 24 Anion Gap 8 BUN 45 H Creatinine 1.75 H Est GFR ( Amer) 35 L Est GFR (Non-Af Amer) 29 L Glucose 79 Calcium 8.0 L 09/24/17 19:40 Clean Catch Midstream Urine Culture - Final Mixed Urogenital Sheila 09/24/17 09/24/17 09/25/17 20:00 20:00 01:11 Creatine Kinase 35 34 CK-MB (CK-2) 0.58 Troponin I < 0.012 09/25/17 09/25/17 09/25/17 01:11 06:50 06:50 Creatine Kinase 33 CK-MB (CK-2) 0.38 0.52 Troponin I < 0.012 < 0.012 Impressions: Chest/Abdomen CTA 09/24/17 15:07 IMPRESSION: 1. There is no evidence of pulmonary emboli. 2. Extensive chronic changes in the lungs as described. 3. Left-sided superior vena cava. Renal Ultrasound 09/25/17 00:00 IMPRESSION: Mildly limited exam. Grossly normal sonographic appearance of the kidneys. No evidence of hydronephrosis or urinary obstruction. Chest X-Ray 09/27/17 00:00 IMPRESSION: 1 stable chronic changes in the lungs since the prior examination dated 10/19/2013. No acute pulmonary findings. NO SIGNIFICANT RADIOGRAPHIC FINDING IN THE CHEST. Assessment & Plan - Diagnosis (1) Chronic interstitial lung disease Is this a current diagnosis for this admission?: Yes Plan: Patients probably need a oxygens and go home (2) Chronic kidney disease, stage 3 Is this a current diagnosis for this admission?: Yes Plan: Currently all stable (3) CAD (coronary artery disease) Qualifiers: Coronary Disease-Associated Artery/Lesion type: unspecified vessel or lesion type Is this a current diagnosis for this admission?: Yes Plan: Patient recently seen by cardiology was all stable with a recent echocardiogram is also stable (4) Hypertension Is this a current diagnosis for this admission?: Yes Plan: Continues to current medications - Time Time Spent with patient: 15-24 minutes Medications reviewed and adjusted accordingly: Yes Anticipated discharge: Home Within: within 24 hours - Inpatient Certification Medical Necessity: Need Close Monitoring Due to Risk of Patient Decompensation Post Hospital Care: D/C Storage Receipt Poster Documentation - Plan Summary Plan Summary: Discussed with Dr. Salinas's continues to monitor the patient
[2017-09-27] MEDS: CETIRIZINE 5 MG TABLET PO SCH (18:00)
[2017-09-28 05:19] LABS: ABSOLUTE EOSINOPHILS # (AUTO) 0.3 10^3/uL (0.0-0.6); ABSOLUTE MONOCYTES (AUTO) 0.7 10^3/uL (0.1-1.4); ABSOLUTE NEUT (AUTO) 3.5 10^3/uL (1.7-8.2); BASOPHILS % (AUTO) 0.4 % (0-2); EOSINOPHILS % (AUTO) 4.3 % (0-6); HEMATOCRIT 43.5 % (36.0-47.0); HEMOGLOBIN 14.5 g/dL (12.0-15.5); LYMPHOCYTES % (AUTO) 31.1 % (13-45); MEAN CORPUSCULAR HEMOGLOBIN 34.8 pg (27.0-33.4); MEAN CORPUSCULAR HGB CONC 33.3 g/dL (32.0-36.0); MEAN CORPUSCULAR VOLUME 105 fl (80-97); MONOCYTES % (AUTO) 10.4 % (3-13); PLATELET COUNT 179 10^3/uL (150-450); RED BLOOD COUNT 4.16 10^6/uL (3.72-5.28); RED CELL DISTRIBUTION WIDTH 14.6 % (11.5-14.0); SEGMENTED NEUTROPHILS % (AUTO) 53.8 % (42-78); TOTAL CELLS COUNTED % (AUTO) 100 %; WHITE BLOOD COUNT 6.5 10^3/uL (4.0-10.5)
[2017-09-28] MEDS: HYDRALAZINE HCL 25 MG TABLET PO SCH ×2 (05:25→15:00)
[2017-09-28] MEDS: LEVOTHYROXINE SODIUM 0.025 MG TABLET PO SCH (05:25)
[2017-09-28 05:39] LABS: ANION GAP 10 (5-19); BLOOD UREA NITROGEN 46 mg/dL (7-20); CALCIUM 8.4 mg/dL (8.4-10.2); CARBON DIOXIDE 24 mmol/L (22-30); CHLORIDE 107 mmol/L (98-107); GLUCOSE 82 mg/dL (75-110); POTASSIUM 4.3 mmol/L (3.6-5.0)
[2017-09-28] MEDS ORDERED: FUROSEMIDE INJ/PF 40 MG/4 ML SDV IV ONE (09:30)
[2017-09-28] MEDS: FUROSEMIDE 40 MG TABLET PO SCH (09:33)
[2017-09-28] MEDS: FLUTICASONE NASAL SPRAY 50 MCG/SPRY 120 SPRAY/16 GM NASL SCH (09:33)
[2017-09-28] MEDS: POTASSIUM CHLORIDE 10 MEQ TABLET.SA PO SCH (09:33)
[2017-09-28] MEDS: OMEGA-3 ACID ETHYL ESTERS 1 GM CAPSULE PO SCH (09:33)
[2017-09-28] MEDS: ASPIRIN 81 MG TABLET, ENT COATED PO SCH (09:34)
[2017-09-28] MEDS: ENOXAPARIN SODIUM INJ 30 MG/0.3 ML DISP.SYRIN SUBCUT SCH (09:34)
[2017-09-28] MEDS: CARVEDILOL 6.25 MG TABLET PO SCH (09:36)
--- NOTE | 2017-09-28 13:00 | PDOC PROGRESS REPORT ---
Subjective Progress Note for:: 09/28/17 Subjective:: Patient is still complaining of short of breath require a more than 4 L oxygens Patient's currently denied any chest pain Patient is resting denied any short of breath but when he moved Reason For Visit: ACUTE HYPOXEMIC RESPIRATORY FAILURE,BRONCHOIECTASI Physical Exam Vital Signs: Temp Pulse Resp BP Pulse Ox 97.5 F 50 L 18 108/56 L 97 09/28/17 12:00 09/28/17 12:00 09/28/17 12:00 09/28/17 12:00 09/28/17 12:00 Intake & Output 09/27/17 09/28/17 09/29/17 06:59 06:59 06:59 Intake Total 850 900 Output Total 800 1100 Balance 50 -200 Weight 108.2 kg 108 kg General appearance: PRESENT: no acute distress, well-developed, well-nourished Head exam: PRESENT: atraumatic, normocephalic Eye exam: PRESENT: conjunctiva pink, EOMI, PERRLA. ABSENT: scleral icterus Ear exam: PRESENT: normal external ear exam Mouth exam: PRESENT: moist, tongue midline Neck exam: PRESENT: full ROM. ABSENT: carotid bruit, JVD, lymphadenopathy, thyromegaly Respiratory exam: PRESENT: clear to auscultation rafiq Cardiovascular exam: PRESENT: RRR. ABSENT: diastolic murmur, rubs, systolic murmur Pulses: PRESENT: normal dorsalis pedis pul, +2 pedal pulses bilateral Vascular exam: PRESENT: normal capillary refill GI/Abdominal exam: PRESENT: normal bowel sounds, soft. ABSENT: distended, guarding, mass, organolmegaly, rebound, tenderness Rectal exam: PRESENT: deferred Extremities exam: ABSENT: pedal edema Musculoskeletal exam: PRESENT: ambulatory Neurological exam: PRESENT: alert, awake, oriented to person, oriented to place , oriented to time, oriented to situation, CN II-XII grossly intact. ABSENT: motor sensory deficit Psychiatric exam: PRESENT: appropriate affect, normal mood. ABSENT: homicidal ideation, suicidal ideation Skin exam: PRESENT: dry, intact, warm. ABSENT: cyanosis, rash Results Laboratory Results: 09/28/17 04:41 09/28/17 04:41 09/28/17 09/28/17 04:41 04:41 WBC 6.5 RBC 4.16 Hgb 14.5 Hct 43.5 MCV 105 H MCH 34.8 H MCHC 33.3 RDW 14.6 H Plt Count 179 Seg Neutrophils % 53.8 Lymphocytes % 31.1 Monocytes % 10.4 Eosinophils % 4.3 Basophils % 0.4 Absolute Neutrophils 3.5 Absolute Lymphocytes 2.0 Absolute Monocytes 0.7 Absolute Eosinophils 0.3 Absolute Basophils 0.0 Sodium 141.0 Potassium 4.3 Chloride 107 Carbon Dioxide 24 Anion Gap 10 BUN 46 H Creatinine 1.65 H Est GFR ( Amer) 37 L Est GFR (Non-Af Amer) 31 L Glucose 82 Calcium 8.4 09/24/17 09/24/17 09/25/17 20:00 20:00 01:11 Creatine Kinase 35 34 CK-MB (CK-2) 0.58 Troponin I < 0.012 09/25/17 09/25/17 09/25/17 01:11 06:50 06:50 Creatine Kinase 33 CK-MB (CK-2) 0.38 0.52 Troponin I < 0.012 < 0.012 Impressions: Chest/Abdomen CTA 09/24/17 15:07 IMPRESSION: 1. There is no evidence of pulmonary emboli. 2. Extensive chronic changes in the lungs as described. 3. Left-sided superior vena cava. Renal Ultrasound 09/25/17 00:00 IMPRESSION: Mildly limited exam. Grossly normal sonographic appearance of the kidneys. No evidence of hydronephrosis or urinary obstruction. Chest X-Ray 09/27/17 00:00 IMPRESSION: 1 stable chronic changes in the lungs since the prior examination dated 10/19/2013. No acute pulmonary findings. NO SIGNIFICANT RADIOGRAPHIC FINDING IN THE CHEST. Assessment & Plan - Diagnosis (1) Chronic interstitial lung disease Is this a current diagnosis for this admission?: Yes Plan: Patients probably need a oxygens and go home (2) Chronic kidney disease, stage 3 Is this a current diagnosis for this admission?: Yes Plan: Currently all stable (3) CAD (coronary artery disease) Qualifiers: Coronary Disease-Associated Artery/Lesion type: unspecified vessel or lesion type Is this a current diagnosis for this admission?: Yes Plan: Patient recently seen by cardiology was all stable with a recent echocardiogram is also stable (4) Hypertension Is this a current diagnosis for this admission?: Yes Plan: Continues to current medications (5) Congestive heart failure Qualifiers: Heart failure type: diastolic Heart failure chronicity: acute Qualified Code(s): I50.31 - Acute diastolic (congestive) heart failure Is this a current diagnosis for this admission?: Yes Plan: Start the patient on IV Lasix patient was recently echocardiogram done last week consult the cardiology for further input - Time Time Spent with patient: 15-24 minutes Medications reviewed and adjusted accordingly: Yes Anticipated discharge: Home Within: Other - Inpatient Certification Medical Necessity: Need Close Monitoring Due to Risk of Patient Decompensation Post Hospital Care: D/C Interactive Marketing 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
--- NOTE | 2017-09-28 15:47 | PDOC PROGRESS REPORT ---
Subjective Progress Note for:: 09/28/17 Subjective:: Feeling a little better warm on BiPAP all night long as well as during the dialysis Reason For Visit: ACUTE HYPOXEMIC RESPIRATORY FAILURE,BRONCHOIECTASI Physical Exam Vital Signs: Temp Pulse Resp BP Pulse Ox 97.5 F 49 L 16 129/61 H 89 L 09/28/17 08:03 09/28/17 08:03 09/28/17 08:03 09/28/17 08:03 09/28/17 08:32 Intake & Output 09/27/17 09/28/17 09/29/17 06:59 06:59 06:59 Intake Total 850 900 Output Total 800 1100 Balance 50 -200 Weight 108.2 kg 108 kg General appearance: PRESENT: no acute distress, cooperative, disheveled, morbidly obese Head exam: PRESENT: atraumatic, normocephalic Eye exam: PRESENT: conjunctiva pale, EOMI. ABSENT: nystagmus, periorbital swelling, scleral icterus Mouth exam: PRESENT: dry mucosa, neck supple, tongue midline Neck exam: ABSENT: carotid bruit, JVD, lymphadenopathy, thyromegaly, tracheal deviation, tracheostomy Respiratory exam: PRESENT: decreased breath sounds, prolonged expiratory phas, rhonchi, symmetrical, unlabored. ABSENT: retraction, stridor, tachypnea Cardiovascular exam: PRESENT: RRR, +S1, +S2 Pulses: PRESENT: normal radial pulses GI/Abdominal exam: PRESENT: diminished bowel sounds, soft Extremities exam: PRESENT: other - AV fistula right antecubital area. ABSENT: calf tenderness, clubbing Musculoskeletal exam: ABSENT: deformity, dislocation Neurological exam: PRESENT: alert, awake Skin exam: PRESENT: dry, warm Results Laboratory Results: 09/28/17 04:41 09/28/17 04:41 09/28/17 09/28/17 04:41 04:41 WBC 6.5 RBC 4.16 Hgb 14.5 Hct 43.5 MCV 105 H MCH 34.8 H MCHC 33.3 RDW 14.6 H Plt Count 179 Seg Neutrophils % 53.8 Lymphocytes % 31.1 Monocytes % 10.4 Eosinophils % 4.3 Basophils % 0.4 Absolute Neutrophils 3.5 Absolute Lymphocytes 2.0 Absolute Monocytes 0.7 Absolute Eosinophils 0.3 Absolute Basophils 0.0 Sodium 141.0 Potassium 4.3 Chloride 107 Carbon Dioxide 24 Anion Gap 10 BUN 46 H Creatinine 1.65 H Est GFR ( Amer) 37 L Est GFR (Non-Af Amer) 31 L Glucose 82 Calcium 8.4 09/24/17 09/24/17 09/25/17 20:00 20:00 01:11 Creatine Kinase 35 34 CK-MB (CK-2) 0.58 Troponin I < 0.012 09/25/17 09/25/17 09/25/17 01:11 06:50 06:50 Creatine Kinase 33 CK-MB (CK-2) 0.38 0.52 Troponin I < 0.012 < 0.012 Impressions: Chest/Abdomen CTA 09/24/17 15:07 IMPRESSION: 1. There is no evidence of pulmonary emboli. 2. Extensive chronic changes in the lungs as described. 3. Left-sided superior vena cava. Renal Ultrasound 09/25/17 00:00 IMPRESSION: Mildly limited exam. Grossly normal sonographic appearance of the kidneys. No evidence of hydronephrosis or urinary obstruction. Chest X-Ray 09/27/17 00:00 IMPRESSION: 1 stable chronic changes in the lungs since the prior examination dated 10/19/2013. No acute pulmonary findings. NO SIGNIFICANT RADIOGRAPHIC FINDING IN THE CHEST. Assessment & Plan - Diagnosis (1) Acute respiratory failure with hypoxemia Is this a current diagnosis for this admission?: Yes Plan: 6 MIN WALK (2) Chronic interstitial lung disease Is this a current diagnosis for this admission?: Yes Plan: may respond to gentle diuresis (3) Chronic kidney disease, stage 3 Is this a current diagnosis for this admission?: Yes Plan: stable (4) Hypertension Is this a current diagnosis for this admission?: Yes (5) Obesity hypoventilation syndrome Is this a current diagnosis for this admission?: Yes Plan: Thus far responding well to BiPAP
[2017-09-28] MEDS: CETIRIZINE 5 MG TABLET PO SCH (18:40)
--- NOTE | 2017-09-28 20:22 | PDOC CONSULTATION ---
Consultation Consult Date: 09/28/17 Attending physician:: MAGDI MILLAN Consult reason:: Respiratory failure, shortness of breath History of Present Illness Admission Date/PCP: 09/24/17 17:55 MAGDI MILLAN MD Patient complains of: Shortness of breath History of Present Illness: NELI BAEZ is a 71 year old female, she came to the emergency room for evaluation of shortness of breath, diaphoresis of acute onset, she was transferred to the emergency room by EMS. She was found to be hypoxemic she was treated with bronchodilators on the way to the emergency room and she also had steroid. In the emergency room a CTA chest was done, it showed stable chronic changes in the left upper lobe with elevation in the left hilum and scarring with bronchiectasis. There is stable right pulmonary nodule there was no pulmonary emboli visualized. The ABG on FiO2 of 15 L, PO2 65.3, PCO2 43.3, bicarbonate 21.7, pH 7.32, this is consistent with severe hypoxemia with mixed acid-base disorder. She is known to [facility] for interstial lung dx. This history was reviewed and confirmed. Patient denied any chest pain. Patient complaints of continuing shortness of breath but claims to be generally improved since admission. Past Medical History Cardiac Medical History: Reports: Congestive Heart Failure, Coronary Artery Disease, Myocardial Infarction, Hyperlipidema, Hypertension, Peripheral Vascular Disease, Other - Pulmonary hypertension Pulmonary Medical History: Reports: Other - Chronic interstitial lung disease Denies: Tuberculosis Renal/ Medical History: Reports: Chronic Kidney Disease, Other - Chronic kidney disease stage 3 GI Medical History: Denies: Cirrhosis, Crohn's Disease, Hepatitis, Ulcerative Colitis Musculoskeltal Medical History: Reports: Arthritis Denies: Gout Psychiatric Medical History: Denies: Bipolar Disorder, Dementia, Schizoaffective Disorder Traumatic Medical History: Denies: Traumatic Brain Injury Hematology: Denies: Sickle Cell Disease Infectious Medical History: Denies: Hepatitis B Past Surgical History Past Surgical History: Reports: Tonsillectomy Social History Information Source: Patient Lives with: Family Smoking Status: Former Smoker Frequency of Alcohol Use: Occasional Hx Recreational Drug Use: No Hx Prescription Drug Abuse: No - Advance Directive Resuscitation Status: Full Code Family History Family History: Hypertension Parental Family History Reviewed: Yes Children Family History Reviewed: Yes Sibling(s) Family History Reviewed.: Yes Medication/Allergy Home Medications: Albuterol Sulfate [Ventolin JESSYA I 18 GM] 2 puff IH Q4HP PRN 09/24/17 Aspirin [Ecotrin 81 mg EC Tablet] 81 mg PO DAILY 09/24/17 Carvedilol [Coreg 6.25 mg Tablet] 12.5 mg PO Q12 09/24/17 Fluticasone Propionate [Flonase Nasal Chamisal 50 Mcg/Chamisal 16 gm] 1 spray NASL DAILY 09/24/17 Furosemide [Lasix 40 mg Tablet] 40 mg PO DAILY 09/24/17 Hydralazine HCl [Apresoline 25 mg Tablet] 25 mg PO Q8 09/24/17 Levocetirizine Dihydrochloride [Xyzal] 5 mg PO QPM 09/24/17 Levothyroxine Sodium [Synthroid 0.025 mg Tablet] 0.025 mg PO Q6AM 09/24/17 Nitroglycerin [Nitrostat] 0.4 mg SL Q5MP PRN 09/24/17 Perry-3 Fatty Acids/Fish Oil [Fish Oil 1,000 mg Capsule] 1 cap PO DAILY Ondansetron HCl [Zofran 4 mg Tablet] 4 mg PO Q12HP PRN 09/24/17 Potassium Chloride [Klor-Con M20] 20 meq PO DAILY 09/24/17 Allergies/Adverse Reactions: Sulfa (Sulfonamide Antibiotics) Allergy (Verified 05/26/16 11:36) Review of Systems Review of Systems: Please see history of present illness and past medical history as wall. Constitutional: No fever or chills reported. Head : No recent chronic headaches, recent head injury. Eyes: No recent eye pain, diplopia, redness, discharge, acute visual changes. Ears: No recent chronic ear pain, acute hearing loss, ear discharge. Oral cavity: No recent ulcerations, bleeding, oral cavity discomfort. Neck: No recent acute neck pain reported. Hematologic: No recent easy bruising or bleeding or hematologic malignancy reported. Lymphatic: No recent lymphatic malignancy, chronic lymphadenopathy reported yet Cardiovascular system review: See history of present illness. Respiratory system review: No recent chronic cough, hemoptysis, blood clots in the lungs reported. Shortness of breath on exertion Gastrointestinal system review: Negative for any recent acute or chronic abdominal pain, hematemesis, melena, recent change in bowel habits. Genitourinary system review: No recent acute or chronic hematuria, flank pain, UTI etc. reported. Skin system review: Negative for any recent abnormal bruising, no rash, no pruritus reported. Neurologic: No prior history of strokes, mini strokes, seizure disorder. Psychologic: No history of major psychosis or major depression reported. Musculoskeletal: Minor aches and pains reported. No acute joint swelling reported. Endocrine: No recent polyuria, polydipsia, recent heat or cold intolerance. Physical Exam Vital Signs: Temp Pulse Resp BP Pulse Ox 97.5 F 50 L 18 108/56 L 97 09/28/17 12:00 09/28/17 12:00 09/28/17 12:00 09/28/17 12:00 09/28/17 12:00 Intake & Output 09/27/17 09/28/17 09/29/17 06:59 06:59 06:59 Intake Total 850 900 Output Total 800 1100 Balance 50 -200 Weight 108.2 kg 108 kg Exam: GENERAL: well-nourished and in no acute distress. Alert and oriented x3 HEAD: Atraumatic, normocephalic. EYES: Pupils equal round and reactive to light, extraocular movements intact, sclera anicteric, conjunctiva are normal. ENT: TMs normal, nares patent, oropharynx clear without exudates. Moist mucous membranes. No oral ulcerations or bleeding gums noted NECK: supple without lymphadenopathy. Trachea is central. No cervical or axillary lymphadenopathy noted. Carotids are 2+, JVD WNL LUNGS: Respiration seems nonlabored, no significant accessory muscle action noted. Bilateral fine crackles both bases and few a scattered wheezes rales or rhonchi noted. No significant dullness noted on percussion. CHEST: Palpation of the chest wall shows no significant chest wall tenderness. No other significant abnormalities noted. HEART: [place] [employer], No PSH, 1/6 RADHA aortic area, 1/6 nance systolic murmur mitral area, no rubs, no gallops. ABDOMEN: Soft, no significant tenderness appreciated, normoactive bowel sounds. No guarding, no rebound. No rigidity noted . No masses appreciated. EXTREMITIES: Pedal pulses are 1-2+, no calf tenderness noted. No clubbing or cyanosis.1+ pedal edema noted NEUROLOGICAL: Focused neurological exam showed no significant neurologic deficit. Normal speech, no focal weakness appreciated. PSYCH: Normal mood, normal affect. Judgment and insight within normal limits. SKIN: No significant ecchymosis, skin is noted to be warm. MUSCULOSKELETAL EXAM: No significant acute joint swelling noted. Results Laboratory Results: 09/28/17 04:41 09/28/17 04:41 09/28/17 09/28/17 04:41 04:41 WBC 6.5 RBC 4.16 Hgb 14.5 Hct 43.5 MCV 105 H MCH 34.8 H MCHC 33.3 RDW 14.6 H Plt Count 179 Seg Neutrophils % 53.8 Lymphocytes % 31.1 Monocytes % 10.4 Eosinophils % 4.3 Basophils % 0.4 Absolute Neutrophils 3.5 Absolute Lymphocytes 2.0 Absolute Monocytes 0.7 Absolute Eosinophils 0.3 Absolute Basophils 0.0 Sodium 141.0 Potassium 4.3 Chloride 107 Carbon Dioxide 24 Anion Gap 10 BUN 46 H Creatinine 1.65 H Est GFR ( Amer) 37 L Est GFR (Non-Af Amer) 31 L Glucose 82 Calcium 8.4 09/24/17 09/24/17 09/25/17 20:00 20:00 01:11 Creatine Kinase 35 34 CK-MB (CK-2) 0.58 Troponin I < 0.012 09/25/17 09/25/17 09/25/17 01:11 06:50 06:50 Creatine Kinase 33 CK-MB (CK-2) 0.38 0.52 Troponin I < 0.012 < 0.012 EKG Comments: Sinus rhythm and left bundle branch block pattern. Impressions: Chest/Abdomen CTA 09/24/17 15:07 IMPRESSION: 1. There is no evidence of pulmonary emboli. 2. Extensive chronic changes in the lungs as described. 3. Left-sided superior vena cava. Renal Ultrasound 09/25/17 00:00 IMPRESSION: Mildly limited exam. Grossly normal sonographic appearance of the kidneys. No evidence of hydronephrosis or urinary obstruction. Chest X-Ray 09/27/17 00:00 IMPRESSION: 1 stable chronic changes in the lungs since the prior examination dated 10/19/2013. No acute pulmonary findings. NO SIGNIFICANT RADIOGRAPHIC FINDING IN THE CHEST. Assessment & Plan - Diagnosis (1) Acute respiratory failure with hypoxemia Is this a current diagnosis for this admission?: Yes (2) Chronic interstitial lung disease Is this a current diagnosis for this admission?: Yes (3) Chronic kidney disease, stage 3 Is this a current diagnosis for this admission?: Yes (4) Congestive heart failure Qualifiers: Heart failure type: diastolic Heart failure chronicity: acute Qualified Code(s): I50.31 - Acute diastolic (congestive) heart failure Is this a current diagnosis for this admission?: Yes (5) CAD (coronary artery disease) Qualifiers: Coronary Disease-Associated Artery/Lesion type: unspecified vessel or lesion type Is this a current diagnosis for this admission?: Yes (6) Hypertension Is this a current diagnosis for this admission?: Yes - Notes Notes: Patient has significant pulmonary disease which is causing dyspnea and respiratory failure. There could be an element of CHF. Will check a BNP level. As regards CAD, patient without any chest pain. Cardiac enzymes are negative. Do not feel an ischemia workup is indicated. Will continue to follow with Dr. Millan. Acute respiratory failure with hypoxemia: Agree with ruling out pulmonary embolism by VQ scan. Patient does have chronic kidney disease. Patient will benefit from pulmonary consultation and evaluation which is already ongoing. Chronic interstitial lung disease: Patient CT from previous admissions reviewed. Pulmonary following. Chronic kidney disease: This is currently stable. Continue to monitor renal functions. Congestive heart failure: This seems compensated by clinical exam. BNP level will be obtained. Chest x-ray did not show any evidence of CHF. Coronary artery disease: This is symptomatically stable. Continue with current medications and management plans. Hypertension: Blood pressure is under well controlled. Continue current management plans. We will continue to follow patient. Continue cardiac monitoring to look for any arrhythmias etc. - Time Time Spent: 30 to 50 Minutes - CODE STATUS was discussed, patient remains full code. Surrogate decision-maker patient's daughter Sulma Pemberton. Multiple medical problems were addressed. More than 50% of the time spent coordinating care, discussing management plans with involved caregivers. Management plans discussed with involved personnels. Medical decision making was of moderate to high complexity, patient's has multiple comorbidities. Medications reviewed and adjusted accordingly: Yes
[2017-09-29] MEDS: CARVEDILOL 6.25 MG TABLET PO SCH ×2 (00:46→09:32)
[2017-09-29] MEDS: HYDRALAZINE HCL 25 MG TABLET PO SCH ×4 (00:47→22:01)
[2017-09-29 06:11] LABS: ANION GAP 12 (5-19); BLOOD UREA NITROGEN 55 mg/dL (7-20); CALCIUM 8.6 mg/dL (8.4-10.2); CARBON DIOXIDE 27 mmol/L (22-30); CHLORIDE 104 mmol/L (98-107); GLUCOSE 96 mg/dL (75-110); POTASSIUM 4.6 mmol/L (3.6-5.0); SODIUM 142.5 mmol/L (137-145)
[2017-09-29] MEDS: LEVOTHYROXINE SODIUM 0.025 MG TABLET PO SCH (06:20)
[2017-09-29] MEDS: ACETAMINOPHEN 325 MG TABLET PO PRN (06:31)
[2017-09-29] MEDS: ASPIRIN 81 MG TABLET, ENT COATED PO SCH (09:16)
[2017-09-29] MEDS: ENOXAPARIN SODIUM INJ 30 MG/0.3 ML DISP.SYRIN SUBCUT SCH (09:18)
[2017-09-29] MEDS: FLUTICASONE NASAL SPRAY 50 MCG/SPRY 120 SPRAY/16 GM NASL SCH (09:23)
[2017-09-29] MEDS: FUROSEMIDE 40 MG TABLET PO SCH (09:24)
[2017-09-29] MEDS: OMEGA-3 ACID ETHYL ESTERS 1 GM CAPSULE PO SCH (09:25)
[2017-09-29] MEDS: POTASSIUM CHLORIDE 10 MEQ TABLET.SA PO SCH (09:26)
--- NOTE | 2017-09-29 10:05 | RADIOLOGY REPORT (SQ) ---
EXAM DESCRIPTION: CHEST PA/LAT COMPLETED DATE/TIME: 09/29/2017 9:47 am REASON FOR STUDY: sob COMPARISON: 09/27/2017 EXAM PARAMETERS: NUMBER OF VIEWS: two views TECHNIQUE: Digital Frontal and Lateral radiographic views of the chest acquired. RADIATION DOSE: NA LIMITATIONS: none FINDINGS: LUNGS AND PLEURA: The previously described chronic appearing changes appears stable. No a cute consolidations or pleural effusions are identified MEDIASTINUM AND HILAR STRUCTURES: Stable appearance with left hilar retraction HEART AND VASCULAR STRUCTURES: Heart normal size. No evidence for failure. BONES: No acute findings. HARDWARE: None in the chest. OTHER: No other significant finding. IMPRESSION: No significant interval changes compared to the previous study. No acute changes. Othe r findings as noted above TECHNICAL DOCUMENTATION: JOB ID: [id number] [employer]- All Rights Reserved Reading location - IP/workstation name: [email or web address]
--- NOTE | 2017-09-29 10:29 | PDOC PROGRESS REPORT ---
Subjective Progress Note for:: 09/29/17 Subjective:: Patient is currently doing fair She is denied any chest pain denied any shortness of the breath but still very short winded patients when he moved Patient seen by the attorney yesterday Reason For Visit: ACUTE HYPOXEMIC RESPIRATORY FAILURE,BRONCHOIECTASI Physical Exam Vital Signs: Temp Pulse Resp BP Pulse Ox 97.5 F 48 L 16 103/52 L 93 09/29/17 08:03 09/29/17 08:03 09/29/17 08:03 09/29/17 08:03 09/29/17 08:03 Intake & Output 09/28/17 09/29/17 09/30/17 06:59 06:59 06:59 Intake Total 900 877 Output Total 1100 900 Balance -200 -23 Weight 108 kg 107.5 kg General appearance: PRESENT: no acute distress, well-developed, well-nourished Head exam: PRESENT: atraumatic, normocephalic Eye exam: PRESENT: conjunctiva pink, EOMI, PERRLA. ABSENT: scleral icterus Ear exam: PRESENT: normal external ear exam Mouth exam: PRESENT: moist, tongue midline Neck exam: PRESENT: full ROM. ABSENT: carotid bruit, JVD, lymphadenopathy, thyromegaly Respiratory exam: PRESENT: clear to auscultation rafiq Cardiovascular exam: PRESENT: RRR. ABSENT: diastolic murmur, rubs, systolic murmur Pulses: PRESENT: normal dorsalis pedis pul, +2 pedal pulses bilateral Vascular exam: PRESENT: normal capillary refill GI/Abdominal exam: PRESENT: normal bowel sounds, soft. ABSENT: distended, guarding, mass, organolmegaly, rebound, tenderness Rectal exam: PRESENT: deferred Extremities exam: ABSENT: pedal edema Musculoskeletal exam: PRESENT: ambulatory Neurological exam: PRESENT: alert, awake, oriented to person, oriented to place , oriented to time, oriented to situation, CN II-XII grossly intact. ABSENT: motor sensory deficit Psychiatric exam: PRESENT: appropriate affect, normal mood. ABSENT: homicidal ideation, suicidal ideation Skin exam: PRESENT: dry, intact, warm. ABSENT: cyanosis, rash Results Laboratory Results: 09/28/17 04:41 09/29/17 04:37 09/29/17 04:37 Sodium 142.5 Potassium 4.6 Chloride 104 Carbon Dioxide 27 Anion Gap 12 BUN 55 H Creatinine 1.89 H Est GFR ( Amer) 32 L Est GFR (Non-Af Amer) 26 L Glucose 96 Calcium 8.6 09/24/17 09/24/17 09/25/17 20:00 20:00 01:11 Creatine Kinase 35 34 CK-MB (CK-2) 0.58 Troponin I < 0.012 NT-Pro-B Natriuret Pep 09/25/17 09/25/17 09/25/17 01:11 06:50 06:50 Creatine Kinase 33 CK-MB (CK-2) 0.38 0.52 Troponin I < 0.012 < 0.012 NT-Pro-B Natriuret Pep 09/29/17 04:37 Creatine Kinase CK-MB (CK-2) Troponin I NT-Pro-B Natriuret Pep 384 Impressions: Chest/Abdomen CTA 09/24/17 15:07 IMPRESSION: 1. There is no evidence of pulmonary emboli. 2. Extensive chronic changes in the lungs as described. 3. Left-sided superior vena cava. Renal Ultrasound 09/25/17 00:00 IMPRESSION: Mildly limited exam. Grossly normal sonographic appearance of the kidneys. No evidence of hydronephrosis or urinary obstruction. Chest X-Ray 09/29/17 00:00 IMPRESSION: No significant interval changes compared to the previous study. No acute changes. Other findings as noted above Assessment & Plan - Diagnosis (1) Chronic interstitial lung disease Is this a current diagnosis for this admission?: Yes Plan: Patients probably need a oxygens and go home (2) Chronic kidney disease, stage 3 Is this a current diagnosis for this admission?: Yes Plan: Currently all stable (3) CAD (coronary artery disease) Qualifiers: Coronary Disease-Associated Artery/Lesion type: unspecified vessel or lesion type Is this a current diagnosis for this admission?: Yes Plan: Patient recently seen by cardiology was all stable with a recent echocardiogram is also stable (4) Hypertension Is this a current diagnosis for this admission?: Yes Plan: Continues to current medications (5) Congestive heart failure Qualifiers: Heart failure type: diastolic Heart failure chronicity: acute Qualified Code(s): I50.31 - Acute diastolic (congestive) heart failure Is this a current diagnosis for this admission?: Yes Plan: Start the patient on IV Lasix patient was recently echocardiogram done last week consult the cardiology for further input - Time Time Spent with patient: 15-24 minutes Medications reviewed and adjusted accordingly: Yes Anticipated discharge: Home Within: Other - Inpatient Certification Medical Necessity: Need Close Monitoring Due to Risk of Patient Decompensation Post Hospital Care: D/C Housekeeper Head Documentation - Plan Summary Plan Summary: Discussed with the nursing staff to try to walk patients with the oxygen and see how much oxygen patients needed discussed with the cardiology and pulmonary about the patient's current conditions patient is still very short winded even the 4 L oxygens
--- NOTE | 2017-09-29 13:23 | EKG REPORT ---
SEVERITY:- ABNORMAL ECG - SINUS BRADYCARDIA LEFT BUNDLE BRANCH BLOCK : Confirmed by: Theo Cardoso MD 29-Sep-2017 13:23:12
[2017-09-29] MEDS: CETIRIZINE 5 MG TABLET PO SCH (19:02)
--- NOTE | 2017-09-29 20:09 | PDOC PROGRESS REPORT ---
Subjective Progress Note for:: 09/29/17 Subjective:: on BiPAP all night long Reason For Visit: ACUTE HYPOXEMIC RESPIRATORY FAILURE,BRONCHOIECTASI Physical Exam Vital Signs: Temp Pulse Resp BP Pulse Ox 97.5 F 48 L 16 103/52 L 93 09/29/17 08:03 09/29/17 08:03 09/29/17 08:03 09/29/17 08:03 09/29/17 08:03 Intake & Output 09/28/17 09/29/17 09/30/17 06:59 06:59 06:59 Intake Total 900 877 744 Output Total 1100 900 Balance -200 -23 744 Weight 108 kg 107.5 kg General appearance: PRESENT: no acute distress, cooperative, disheveled, morbidly obese Head exam: PRESENT: atraumatic, normocephalic Eye exam: PRESENT: conjunctiva pale, EOMI. ABSENT: nystagmus, periorbital swelling, scleral icterus Mouth exam: PRESENT: dry mucosa, neck supple, tongue midline Neck exam: ABSENT: carotid bruit, JVD, lymphadenopathy, thyromegaly, tracheal deviation, tracheostomy Respiratory exam: PRESENT: decreased breath sounds, prolonged expiratory phas, rhonchi, symmetrical, unlabored, wheezes. ABSENT: rales, retraction, stridor, tachypnea Cardiovascular exam: PRESENT: RRR, +S1, +S2 Pulses: PRESENT: normal radial pulses GI/Abdominal exam: PRESENT: diminished bowel sounds, soft Extremities exam: ABSENT: clubbing, joint swelling Neurological exam: PRESENT: alert, awake Psychiatric exam: PRESENT: normal mood Skin exam: PRESENT: dry, warm Results Laboratory Results: 09/28/17 04:41 09/29/17 04:37 09/29/17 04:37 Sodium 142.5 Potassium 4.6 Chloride 104 Carbon Dioxide 27 Anion Gap 12 BUN 55 H Creatinine 1.89 H Est GFR ( Amer) 32 L Est GFR (Non-Af Amer) 26 L Glucose 96 Calcium 8.6 09/24/17 09/24/17 09/25/17 20:00 20:00 01:11 Creatine Kinase 35 34 CK-MB (CK-2) 0.58 Troponin I < 0.012 NT-Pro-B Natriuret Pep 09/25/17 09/25/17 09/25/17 01:11 06:50 06:50 Creatine Kinase 33 CK-MB (CK-2) 0.38 0.52 Troponin I < 0.012 < 0.012 NT-Pro-B Natriuret Pep 09/29/17 04:37 Creatine Kinase CK-MB (CK-2) Troponin I NT-Pro-B Natriuret Pep 384 Impressions: Chest/Abdomen CTA 09/24/17 15:07 IMPRESSION: 1. There is no evidence of pulmonary emboli. 2. Extensive chronic changes in the lungs as described. 3. Left-sided superior vena cava. Renal Ultrasound 09/25/17 00:00 IMPRESSION: Mildly limited exam. Grossly normal sonographic appearance of the kidneys. No evidence of hydronephrosis or urinary obstruction. Chest X-Ray 09/29/17 00:00 IMPRESSION: No significant interval changes compared to the previous study. No acute changes. Other findings as noted above Assessment & Plan - Diagnosis (1) Acute respiratory failure with hypoxemia Is this a current diagnosis for this admission?: Yes Plan: she failed her 6 min WALK (2) Chronic interstitial lung disease Is this a current diagnosis for this admission?: Yes Plan: may respond to gentle diuresis (3) Chronic kidney disease, stage 3 Is this a current diagnosis for this admission?: Yes (4) Hypertension Is this a current diagnosis for this admission?: Yes (5) Obesity hypoventilation syndrome Is this a current diagnosis for this admission?: Yes Plan: Thus far responding well to BiPAP
[2017-09-30] MEDS: HYDRALAZINE HCL 25 MG TABLET PO SCH ×3 (06:02→21:04)
[2017-09-30] MEDS: LEVOTHYROXINE SODIUM 0.025 MG TABLET PO SCH (06:03)
[2017-09-30 06:32] LABS: ABSOLUTE EOSINOPHILS # (AUTO) 0.3 10^3/uL (0.0-0.6); ABSOLUTE LYMPHOCYTES (AUTO) 1.3 10^3/uL (0.5-4.7); ABSOLUTE MONOCYTES (AUTO) 0.6 10^3/uL (0.1-1.4); ABSOLUTE NEUT (AUTO) 3.3 10^3/uL (1.7-8.2); BASOPHILS % (AUTO) 0.3 % (0-2); HEMATOCRIT 42.3 % (36.0-47.0); HEMOGLOBIN 14.3 g/dL (12.0-15.5); LYMPHOCYTES % (AUTO) 24.5 % (13-45); MEAN CORPUSCULAR HEMOGLOBIN 35.2 pg (27.0-33.4); MEAN CORPUSCULAR HGB CONC 33.7 g/dL (32.0-36.0); MEAN CORPUSCULAR VOLUME 104 fl (80-97); MONOCYTES % (AUTO) 11.1 % (3-13); PLATELET COUNT 153 10^3/uL (150-450); RED BLOOD COUNT 4.05 10^6/uL (3.72-5.28); RED CELL DISTRIBUTION WIDTH 14.8 % (11.5-14.0); SEGMENTED NEUTROPHILS % (AUTO) 59.1 % (42-78); TOTAL CELLS COUNTED % (AUTO) 100 %; WHITE BLOOD COUNT 5.5 10^3/uL (4.0-10.5)
[2017-09-30 06:47] LABS: ANION GAP 10 (5-19); BLOOD UREA NITROGEN 57 mg/dL (7-20); CALCIUM 8.4 mg/dL (8.4-10.2); CARBON DIOXIDE 24 mmol/L (22-30); CHLORIDE 106 mmol/L (98-107); GLUCOSE 87 mg/dL (75-110); POTASSIUM 4.6 mmol/L (3.6-5.0); SODIUM 139.8 mmol/L (137-145)
[2017-09-30] MEDS: FLUTICASONE NASAL SPRAY 50 MCG/SPRY 120 SPRAY/16 GM NASL SCH (10:58)
[2017-09-30] MEDS: FUROSEMIDE 40 MG TABLET PO SCH (10:59)
[2017-09-30] MEDS: ENOXAPARIN SODIUM INJ 30 MG/0.3 ML DISP.SYRIN SUBCUT SCH (10:59)
[2017-09-30] MEDS: ASPIRIN 81 MG TABLET, ENT COATED PO SCH (11:01)
[2017-09-30] MEDS: OMEGA-3 ACID ETHYL ESTERS 1 GM CAPSULE PO SCH (11:02)
[2017-09-30] MEDS: POTASSIUM CHLORIDE 10 MEQ TABLET.SA PO SCH (11:02)
--- NOTE | 2017-09-30 13:02 | PDOC PROGRESS REPORT ---
Subjective Progress Note for:: 09/30/17 Subjective:: Patient is currently doing fair Patient still have a short winded when she walk patient still require 4-5 L oxygens Discussed with the cardiology does not think is complaining the cardiac discussed with the Dr. Salinas and suggest the will order the VQ scan's to rule out the other etiology Reason For Visit: ACUTE HYPOXEMIC RESPIRATORY FAILURE,BRONCHOIECTASI Physical Exam Vital Signs: Temp Pulse Resp BP Pulse Ox 97.3 F 55 L 16 124/57 L 92 09/30/17 11:06 09/30/17 11:06 09/30/17 11:06 09/30/17 11:06 09/30/17 11:06 Intake & Output 09/29/17 09/30/17 10/01/17 06:59 06:59 06:59 Intake Total 877 1144 Output Total 900 Balance -23 1144 Weight 107.5 kg 104.7 kg General appearance: PRESENT: no acute distress, well-developed, well-nourished Head exam: PRESENT: atraumatic, normocephalic Eye exam: PRESENT: conjunctiva pink, EOMI, PERRLA. ABSENT: scleral icterus Ear exam: PRESENT: normal external ear exam Mouth exam: PRESENT: moist, tongue midline Neck exam: PRESENT: full ROM. ABSENT: carotid bruit, JVD, lymphadenopathy, thyromegaly Cardiovascular exam: PRESENT: RRR. ABSENT: diastolic murmur, rubs, systolic murmur Pulses: PRESENT: normal dorsalis pedis pul, +2 pedal pulses bilateral Vascular exam: PRESENT: normal capillary refill GI/Abdominal exam: PRESENT: normal bowel sounds, soft. ABSENT: distended, guarding, mass, organolmegaly, rebound, tenderness Rectal exam: PRESENT: deferred Extremities exam: ABSENT: pedal edema Neurological exam: PRESENT: alert, awake, oriented to person, oriented to place , oriented to time, oriented to situation, CN II-XII grossly intact. ABSENT: motor sensory deficit Psychiatric exam: PRESENT: appropriate affect, normal mood. ABSENT: homicidal ideation, suicidal ideation Skin exam: PRESENT: dry, intact, warm. ABSENT: cyanosis, rash Results Laboratory Results: 09/30/17 05:23 09/30/17 02:53 09/30/17 09/30/17 02:53 05:23 WBC 5.5 RBC 4.05 Hgb 14.3 Hct 42.3 MCV 104 H MCH 35.2 H MCHC 33.7 RDW 14.8 H Plt Count 153 Seg Neutrophils % 59.1 Lymphocytes % 24.5 Monocytes % 11.1 Eosinophils % 5.0 Basophils % 0.3 Absolute Neutrophils 3.3 Absolute Lymphocytes 1.3 Absolute Monocytes 0.6 Absolute Eosinophils 0.3 Absolute Basophils 0.0 Sodium 139.8 Potassium 4.6 Chloride 106 Carbon Dioxide 24 Anion Gap 10 BUN 57 H Creatinine 1.70 H Est GFR ( Amer) 36 L Est GFR (Non-Af Amer) 30 L Glucose 87 Calcium 8.4 09/24/17 20:00 Blood Blood Culture - Final NO GROWTH IN 5 DAYS 09/24/17 09/24/17 09/25/17 20:00 20:00 01:11 Creatine Kinase 35 34 CK-MB (CK-2) 0.58 Troponin I < 0.012 NT-Pro-B Natriuret Pep 09/25/17 09/25/17 09/25/17 01:11 06:50 06:50 Creatine Kinase 33 CK-MB (CK-2) 0.38 0.52 Troponin I < 0.012 < 0.012 NT-Pro-B Natriuret Pep 09/29/17 04:37 Creatine Kinase CK-MB (CK-2) Troponin I NT-Pro-B Natriuret Pep 384 Impressions: Chest/Abdomen CTA 09/24/17 15:07 IMPRESSION: 1. There is no evidence of pulmonary emboli. 2. Extensive chronic changes in the lungs as described. 3. Left-sided superior vena cava. Renal Ultrasound 09/25/17 00:00 IMPRESSION: Mildly limited exam. Grossly normal sonographic appearance of the kidneys. No evidence of hydronephrosis or urinary obstruction. Chest X-Ray 09/29/17 00:00 IMPRESSION: No significant interval changes compared to the previous study. No acute changes. Other findings as noted above Assessment & Plan - Diagnosis (1) Chronic interstitial lung disease Is this a current diagnosis for this admission?: Yes Plan: Patients probably need a oxygens and go home (2) Chronic kidney disease, stage 3 Is this a current diagnosis for this admission?: Yes Plan: Currently all stable (3) CAD (coronary artery disease) Qualifiers: Coronary Disease-Associated Artery/Lesion type: unspecified vessel or lesion type Is this a current diagnosis for this admission?: Yes Plan: Patient recently seen by cardiology was all stable with a recent echocardiogram is also stable (4) Hypertension Is this a current diagnosis for this admission?: Yes Plan: Continues to current medications (5) Congestive heart failure Qualifiers: Heart failure type: diastolic Heart failure chronicity: acute Qualified Code(s): I50.31 - Acute diastolic (congestive) heart failure Is this a current diagnosis for this admission?: Yes Plan: Start the patient on IV Lasix patient was recently echocardiogram done last week consult the cardiology for further input - Time Time Spent with patient: 15-24 minutes Medications reviewed and adjusted accordingly: Yes Anticipated discharge: Other Within: Other - Inpatient Certification Medical Necessity: Need Close Monitoring Due to Risk of Patient Decompensation Post Hospital Care: D/C [employer] Specialist Documentation - Plan Summary Plan Summary: Patient's currently doing well we will order the VQ scan discussed with the cardiology and pulmonary to further evaluate
--- NOTE | 2017-09-30 15:12 | RADIOLOGY REPORT (SQ) ---
EXAM DESCRIPTION: CHEST PA/LAT COMPLETED DATE/TIME: 09/30/2017 3:05 pm REASON FOR STUDY: DYSPNEA ( PER PROTOCOL FOR NM VQ STAT TODAY) COMPARISON: 09/29/2017, 09/27/2017, and 10/19/2013. . EXAM PARAMETERS: NUMBER OF VIEWS: two views TECHNIQUE: Digital Frontal and Lateral radiographic views of the chest acquired. RADIATION DOSE: NA LIMITATIONS: none FINDINGS: LUNGS AND PLEURA: Chronic interstitial changes. Chronic scarring in the left upper lobe w ith apical pleural scar. No focal infiltrates. No pleural effusion MEDIASTINUM AND HILAR STRUCTURES: No masses or contour abnormalities. HEART AND VASCULAR STRUCTURES: Heart normal size. No evidence for failure. BONES: No acute findings. HARDWARE: None in the chest. OTHER: No other significant finding. IMPRESSION: CHRONIC INTERSTITIAL CHANGES AND CHRONIC SCARRING IN THE LEFT UPPER LOBE AND APEX. NO S IGNIFICANT CHANGE. TECHNICAL DOCUMENTATION: JOB ID: [id number] [employer]- All Rights Reserved Reading location - IP/workstation name: [email or web address]
--- NOTE | 2017-09-30 16:17 | RADIOLOGY REPORT (SQ) ---
EXAM DESCRIPTION: NM LUNG VENT/PERF SCAN COMPLETED DATE/TIME: 09/30/2017 4:02 pm REASON FOR STUDY: dyspnea COMPARISON: None. RADIONUCLIDE AND DOSE: 5.42 millicuries TC-99m MAA Intravenous 31.8 millicuries TC-99m DTPA Inhaled aerosol TECHNIQUE: Eight views of the lungs acquired post ventilation of DTPA aerosol. Eight matching views of the lungs acquired following injection of MAA. LIMITATIONS: None. FINDINGS: VENTILATION: Symmetric and mildly heterogenous distribution of DTPA aerosol during ventila tory phase. No significant areas of photopenia. PERFUSION: Perfusion images with mildly heterogenous activity and no wedge-shaped or segmental defect s. No ventilation-perfusion mismatches. OTHER: No other significant finding. IMPRESSION: LOW PROBABILITY FOR PULMONARY EMBOLISM. TECHNICAL DOCUMENTATION: JOB ID: [id number] [employer]- All Rights Reserved Reading location - IP/workstation name: [email or web address]
[2017-09-30] MEDS: CETIRIZINE 5 MG TABLET PO SCH (17:17)
[2017-10-01] MEDS: HYDRALAZINE HCL 25 MG TABLET PO SCH ×3 (05:36→21:09)
[2017-10-01] MEDS: LEVOTHYROXINE SODIUM 0.025 MG TABLET PO SCH (05:36)
[2017-10-01 06:00] LABS: ABSOLUTE EOSINOPHILS # (AUTO) 0.3 10^3/uL (0.0-0.6); ABSOLUTE LYMPHOCYTES (AUTO) 1.3 10^3/uL (0.5-4.7); ABSOLUTE MONOCYTES (AUTO) 0.8 10^3/uL (0.1-1.4); ABSOLUTE NEUT (AUTO) 3.8 10^3/uL (1.7-8.2); BASOPHILS % (AUTO) 0.5 % (0-2); EOSINOPHILS % (AUTO) 4.6 % (0-6); HEMATOCRIT 41.8 % (36.0-47.0); HEMOGLOBIN 14.1 g/dL (12.0-15.5); LYMPHOCYTES % (AUTO) 20.8 % (13-45); MEAN CORPUSCULAR HEMOGLOBIN 35.1 pg (27.0-33.4); MEAN CORPUSCULAR HGB CONC 33.8 g/dL (32.0-36.0); MEAN CORPUSCULAR VOLUME 104 fl (80-97); MONOCYTES % (AUTO) 12.6 % (3-13); PLATELET COUNT 164 10^3/uL (150-450); RED BLOOD COUNT 4.02 10^6/uL (3.72-5.28); RED CELL DISTRIBUTION WIDTH 14.9 % (11.5-14.0); SEGMENTED NEUTROPHILS % (AUTO) 61.5 % (42-78); TOTAL CELLS COUNTED % (AUTO) 100 %; WHITE BLOOD COUNT 6.1 10^3/uL (4.0-10.5)
[2017-10-01 06:14] LABS: ANION GAP 8 (5-19); BLOOD UREA NITROGEN 60 mg/dL (7-20); CALCIUM 8.6 mg/dL (8.4-10.2); CARBON DIOXIDE 26 mmol/L (22-30); CHLORIDE 108 mmol/L (98-107); GLUCOSE 101 mg/dL (75-110); POTASSIUM 4.7 mmol/L (3.6-5.0); SODIUM 142.3 mmol/L (137-145)
[2017-10-01] MEDS ORDERED: ALBUTEROL 2 MG/5 ML SYRP 60 ML PO PRN (08:42)
[2017-10-01] MEDS ORDERED: ALBUTEROL SULFATE HFA (90 MCG/PUFF) 200 PUFF/8.5 GM MDI IH PRN (08:43)
[2017-10-01] MEDS: ASPIRIN 81 MG TABLET, ENT COATED PO SCH (09:25)
[2017-10-01] MEDS: OMEGA-3 ACID ETHYL ESTERS 1 GM CAPSULE PO SCH (09:26)
[2017-10-01] MEDS: POTASSIUM CHLORIDE 10 MEQ TABLET.SA PO SCH (09:28)
[2017-10-01] MEDS: FLUTICASONE NASAL SPRAY 50 MCG/SPRY 120 SPRAY/16 GM NASL SCH (09:33)
[2017-10-01] MEDS: FUROSEMIDE 40 MG TABLET PO SCH (09:35)
[2017-10-01] MEDS: ENOXAPARIN SODIUM INJ 30 MG/0.3 ML DISP.SYRIN SUBCUT SCH (09:36)
[2017-10-01] MEDS: METHYLPREDNISOLONE INJ 40 MG/1 ML SDV IV SCH ×2 (10:22→18:45)
--- NOTE | 2017-10-01 11:33 | PDOC PROGRESS REPORT ---
Subjective Progress Note for:: 10/01/17 Subjective:: Patient is feeling better but patient's lungs sound is still Not clearPatient still needed oxygen and the patient's VQ scan is all negative as per discussed with Dr. Salinas and start the patient on a steroid and nebulizer treatments She is denied any chest pain denied any shortness of the breath Reason For Visit: ACUTE HYPOXEMIC RESPIRATORY FAILURE,BRONCHOIECTASI Physical Exam Vital Signs: Temp Pulse Resp BP Pulse Ox 98.6 F 72 19 121/49 L 94 10/01/17 07:24 10/01/17 07:24 10/01/17 07:24 10/01/17 07:24 10/01/17 07:24 Intake & Output 09/30/17 10/01/17 10/02/17 06:59 06:59 06:59 Intake Total 1144 580 Balance 1144 580 Weight 104.7 kg 105.1 kg General appearance: PRESENT: no acute distress, well-developed, well-nourished Head exam: PRESENT: atraumatic, normocephalic Eye exam: PRESENT: conjunctiva pink, EOMI, PERRLA. ABSENT: scleral icterus Ear exam: PRESENT: normal external ear exam Mouth exam: PRESENT: moist, tongue midline Neck exam: PRESENT: full ROM. ABSENT: carotid bruit, JVD, lymphadenopathy, thyromegaly Respiratory exam: PRESENT: decreased breath sounds Cardiovascular exam: PRESENT: RRR. ABSENT: diastolic murmur, rubs, systolic murmur Pulses: PRESENT: normal dorsalis pedis pul, +2 pedal pulses bilateral Vascular exam: PRESENT: normal capillary refill GI/Abdominal exam: PRESENT: normal bowel sounds, soft. ABSENT: distended, guarding, mass, organolmegaly, rebound, tenderness Rectal exam: PRESENT: deferred Extremities exam: ABSENT: pedal edema Musculoskeletal exam: PRESENT: ambulatory Neurological exam: PRESENT: alert, awake, oriented to person, oriented to place , oriented to time, oriented to situation, CN II-XII grossly intact. ABSENT: motor sensory deficit Psychiatric exam: PRESENT: appropriate affect, normal mood. ABSENT: homicidal ideation, suicidal ideation Skin exam: PRESENT: dry, intact, warm. ABSENT: cyanosis, rash Results Laboratory Results: 10/01/17 04:46 10/01/17 04:46 10/01/17 10/01/17 04:46 04:46 WBC 6.1 RBC 4.02 Hgb 14.1 Hct 41.8 MCV 104 H MCH 35.1 H MCHC 33.8 RDW 14.9 H Plt Count 164 Seg Neutrophils % 61.5 Lymphocytes % 20.8 Monocytes % 12.6 Eosinophils % 4.6 Basophils % 0.5 Absolute Neutrophils 3.8 Absolute Lymphocytes 1.3 Absolute Monocytes 0.8 Absolute Eosinophils 0.3 Absolute Basophils 0.0 Sodium 142.3 Potassium 4.7 Chloride 108 H Carbon Dioxide 26 Anion Gap 8 BUN 60 H Creatinine 1.68 H Est GFR ( Amer) 37 L Est GFR (Non-Af Amer) 30 L Glucose 101 Calcium 8.6 09/24/17 09/24/17 09/25/17 20:00 20:00 01:11 Creatine Kinase 35 34 CK-MB (CK-2) 0.58 Troponin I < 0.012 NT-Pro-B Natriuret Pep 09/25/17 09/25/17 09/25/17 01:11 06:50 06:50 Creatine Kinase 33 CK-MB (CK-2) 0.38 0.52 Troponin I < 0.012 < 0.012 NT-Pro-B Natriuret Pep 09/29/17 04:37 Creatine Kinase CK-MB (CK-2) Troponin I NT-Pro-B Natriuret Pep 384 Impressions: Chest/Abdomen CTA 09/24/17 15:07 IMPRESSION: 1. There is no evidence of pulmonary emboli. 2. Extensive chronic changes in the lungs as described. 3. Left-sided superior vena cava. Renal Ultrasound 09/25/17 00:00 IMPRESSION: Mildly limited exam. Grossly normal sonographic appearance of the kidneys. No evidence of hydronephrosis or urinary obstruction. Chest X-Ray 09/30/17 00:00 IMPRESSION: CHRONIC INTERSTITIAL CHANGES AND CHRONIC SCARRING IN THE LEFT UPPER LOBE AND APEX. NO SIGNIFICANT CHANGE. Lung Scan-VQ NM 09/30/17 12:57 IMPRESSION: LOW PROBABILITY FOR PULMONARY EMBOLISM. Assessment & Plan - Diagnosis (1) Chronic interstitial lung disease Is this a current diagnosis for this admission?: Yes Plan: Be underlying some obstructions as per discussed with Dr. Salinas start the steroid therapy (2) Chronic kidney disease, stage 3 Is this a current diagnosis for this admission?: Yes Plan: Currently all stable (3) CAD (coronary artery disease) Qualifiers: Coronary Disease-Associated Artery/Lesion type: unspecified vessel or lesion type Is this a current diagnosis for this admission?: Yes Plan: Patient recently seen by cardiology was all stable with a recent echocardiogram is also stable (4) Hypertension Is this a current diagnosis for this admission?: Yes Plan: Continues to current medications (5) Congestive heart failure Qualifiers: Heart failure type: diastolic Heart failure chronicity: acute Qualified Code(s): I50.31 - Acute diastolic (congestive) heart failure Is this a current diagnosis for this admission?: Yes Plan: Start the patient on IV Lasix patient was recently echocardiogram done last week consult the cardiology for further input - Time Time Spent with patient: 15-24 minutes Medications reviewed and adjusted accordingly: Yes Anticipated discharge: Other Within: Other - Inpatient Certification Medical Necessity: Need Close Monitoring Due to Risk of Patient Decompensation Post Hospital Care: D/C Security Administrator Documentation - Plan Summary Plan Summary: Will continues to steroid therapy per Dr. Salinas
[2017-10-01] MEDS: CETIRIZINE 5 MG TABLET PO SCH (18:55)
[2017-10-01] MEDS: BUDESONIDE NEB 0.5 MG/2 ML AMPUL NEB SCH (20:35)
--- NOTE | 2017-10-01 20:45 | PDOC PROGRESS REPORT ---
Subjective Progress Note for:: 09/29/17 Subjective:: Patient seems to be doing better with gradual improvement. Patient needing less oxygen supplementation. Pt is denying any chest arm or neck discomfort. Patient denying any PND, orthopnea. Patient denied any sustained palpitations, dizziness, syncope, near syncope. Patient denying any fever chills. Patient denying any other significant discomfort. VQ scan noted to be negative. Patient is maintaining sinus rhythm. Review of systems: Rest review of systems negative. Medications: Medications have been reviewed. Reason For Visit: ACUTE HYPOXEMIC RESPIRATORY FAILURE,BRONCHOIECTASI Physical Exam Vital Signs: Temp Pulse Resp BP Pulse Ox 97.5 F 48 L 16 103/52 L 93 09/29/17 08:03 09/29/17 08:03 09/29/17 08:03 09/29/17 08:03 09/29/17 08:03 Intake & Output 09/28/17 09/29/17 09/30/17 06:59 06:59 06:59 Intake Total 900 877 744 Output Total 1100 900 Balance -200 -23 744 Weight 108 kg 107.5 kg Exam: GENERAL: well-nourished and in no acute distress. Alert and oriented x3 HEAD: Atraumatic, normocephalic. EYES: Pupils equal round and reactive to light, extraocular movements intact, sclera anicteric, conjunctiva are normal. ENT: TMs normal, nares patent, oropharynx clear without exudates. Moist mucous membranes. No oral ulcerations or bleeding gums noted NECK: supple without lymphadenopathy. Trachea is central. No cervical or axillary lymphadenopathy noted. Carotids are 2+, JVD WNL LUNGS: Respiration seems nonlabored, no significant accessory muscle action noted. Breath sounds clear to auscultation bilaterally and equal noted. No wheezes rales or rhonchi noted. No significant dullness noted on percussion. CHEST: Palpation of the chest wall shows no significant chest wall tenderness. No other significant abnormalities noted. HEART: [place] [employer], No PSH, 1/6 RADHA aortic area, 1/6 nance systolic murmur mitral area, no rubs, no gallops. ABDOMEN: Soft, no significant tenderness appreciated, normoactive bowel sounds. No guarding, no rebound. No rigidity noted . No masses appreciated. EXTREMITIES: Pedal pulses are 1-2+, no calf tenderness noted. No clubbing or cyanosis.trace to 1+ pedal edema noted NEUROLOGICAL: Focused neurological exam showed no significant neurologic deficit. Normal speech, no focal weakness appreciated. PSYCH: Normal mood, normal affect. Judgment and insight within normal limits. SKIN: No significant ecchymosis, skin is noted to be warm. MUSCULOSKELETAL EXAM: No significant acute joint swelling noted. Results Laboratory Results: 09/28/17 04:41 09/29/17 04:37 09/29/17 04:37 Sodium 142.5 Potassium 4.6 Chloride 104 Carbon Dioxide 27 Anion Gap 12 BUN 55 H Creatinine 1.89 H Est GFR ( Amer) 32 L Est GFR (Non-Af Amer) 26 L Glucose 96 Calcium 8.6 09/24/17 09/24/17 09/25/17 20:00 20:00 01:11 Creatine Kinase 35 34 CK-MB (CK-2) 0.58 Troponin I < 0.012 NT-Pro-B Natriuret Pep 09/25/17 09/25/17 09/25/17 01:11 06:50 06:50 Creatine Kinase 33 CK-MB (CK-2) 0.38 0.52 Troponin I < 0.012 < 0.012 NT-Pro-B Natriuret Pep 09/29/17 04:37 Creatine Kinase CK-MB (CK-2) Troponin I NT-Pro-B Natriuret Pep 384 EKG Comments: Telemetry shows sinus rhythm without any sustained tachycardia or bradycardia. Impressions: Chest/Abdomen CTA 09/24/17 15:07 IMPRESSION: 1. There is no evidence of pulmonary emboli. 2. Extensive chronic changes in the lungs as described. 3. Left-sided superior vena cava. Renal Ultrasound 09/25/17 00:00 IMPRESSION: Mildly limited exam. Grossly normal sonographic appearance of the kidneys. No evidence of hydronephrosis or urinary obstruction. Chest X-Ray 09/29/17 00:00 IMPRESSION: No significant interval changes compared to the previous study. No acute changes. Other findings as noted above Assessment & Plan - Diagnosis (1) Acute respiratory failure with hypoxemia Is this a current diagnosis for this admission?: Yes (2) Chronic interstitial lung disease Is this a current diagnosis for this admission?: Yes (3) Chronic kidney disease, stage 3 Is this a current diagnosis for this admission?: Yes (4) Congestive heart failure Qualifiers: Heart failure type: diastolic Heart failure chronicity: acute Qualified Code(s): I50.31 - Acute diastolic (congestive) heart failure Is this a current diagnosis for this admission?: Yes (5) CAD (coronary artery disease) Qualifiers: Coronary Disease-Associated Artery/Lesion type: unspecified vessel or lesion type Is this a current diagnosis for this admission?: Yes (6) Hypertension Is this a current diagnosis for this admission?: Yes - Notes Notes: Acute respiratory failure with hypoxemia: Agree with ruling out pulmonary embolism by VQ scan. Patient does have chronic kidney disease. Patient will benefit from pulmonary consultation and evaluation which is already ongoing. VQ scan is pending. Previous CTA reviewed. Feel that it is needed in view of pulmonary hypertension. Currently needing high flow oxygen to maintain oxygenation. Chronic interstitial lung disease: Patient CT from previous admissions reviewed. Pulmonary following. Chronic kidney disease: This is currently stable. Continue to monitor renal functions. Congestive heart failure: This seems compensated by clinical exam. BNP level will be obtained. Chest x-ray did not show any evidence of CHF. Coronary artery disease: This is symptomatically stable. Continue with current medications and management plans. Hypertension: Blood pressure is under well controlled. Continue current management plans. We will continue to follow patient. Continue cardiac monitoring to look for any arrhythmias etc. - Time Time with patient: 15-25 minutes - CODE STATUS was discussed, patient remains full code. Surrogate decision-maker unchanged. Multiple medical problems were addressed. More than 50% of the time spent coordinating care, discussing management plans with involved caregivers. Management plans discussed with involved personnels. Medical decision making was of moderate to high complexity , patient's has multiple comorbidities. Medications reviewed and adjusted accordingly: Yes
--- NOTE | 2017-10-01 20:47 | PDOC PROGRESS REPORT ---
Subjective Progress Note for:: 09/30/17 Subjective:: Patient seems to be doing better with gradual improvement. Patient needing less oxygen supplementation. Pt is denying any chest arm or neck discomfort. Patient denying any PND, orthopnea. Patient denied any sustained palpitations, dizziness, syncope, near syncope. Patient denying any fever chills. Patient denying any other significant discomfort. VQ scan noted to be negative. Patient is maintaining sinus rhythm. Review of systems: Rest review of systems negative. Medications: Medications have been reviewed. Reason For Visit: ACUTE HYPOXEMIC RESPIRATORY FAILURE,BRONCHOIECTASI Physical Exam Vital Signs: Temp Pulse Resp BP Pulse Ox 97.7 F 54 L 20 151/79 H 90 L 09/30/17 16:08 09/30/17 16:08 09/30/17 16:08 09/30/17 16:08 09/30/17 16:08 Intake & Output 09/29/17 09/30/17 10/01/17 06:59 06:59 06:59 Intake Total 877 1144 460 Output Total 900 Balance -23 1144 460 Weight 107.5 kg 104.7 kg Results Laboratory Results: 09/30/17 05:23 09/30/17 02:53 09/30/17 09/30/17 02:53 05:23 WBC 5.5 RBC 4.05 Hgb 14.3 Hct 42.3 MCV 104 H MCH 35.2 H MCHC 33.7 RDW 14.8 H Plt Count 153 Seg Neutrophils % 59.1 Lymphocytes % 24.5 Monocytes % 11.1 Eosinophils % 5.0 Basophils % 0.3 Absolute Neutrophils 3.3 Absolute Lymphocytes 1.3 Absolute Monocytes 0.6 Absolute Eosinophils 0.3 Absolute Basophils 0.0 Sodium 139.8 Potassium 4.6 Chloride 106 Carbon Dioxide 24 Anion Gap 10 BUN 57 H Creatinine 1.70 H Est GFR ( Amer) 36 L Est GFR (Non-Af Amer) 30 L Glucose 87 Calcium 8.4 09/24/17 20:00 Blood Blood Culture - Final NO GROWTH IN 5 DAYS 09/24/17 09/24/17 09/25/17 20:00 20:00 01:11 Creatine Kinase 35 34 CK-MB (CK-2) 0.58 Troponin I < 0.012 NT-Pro-B Natriuret Pep 09/25/17 09/25/17 09/25/17 01:11 06:50 06:50 Creatine Kinase 33 CK-MB (CK-2) 0.38 0.52 Troponin I < 0.012 < 0.012 NT-Pro-B Natriuret Pep 09/29/17 04:37 Creatine Kinase CK-MB (CK-2) Troponin I NT-Pro-B Natriuret Pep 384 Impressions: Chest/Abdomen CTA 09/24/17 15:07 IMPRESSION: 1. There is no evidence of pulmonary emboli. 2. Extensive chronic changes in the lungs as described. 3. Left-sided superior vena cava. Renal Ultrasound 09/25/17 00:00 IMPRESSION: Mildly limited exam. Grossly normal sonographic appearance of the kidneys. No evidence of hydronephrosis or urinary obstruction. Chest X-Ray 09/30/17 00:00 IMPRESSION: CHRONIC INTERSTITIAL CHANGES AND CHRONIC SCARRING IN THE LEFT UPPER LOBE AND APEX. NO SIGNIFICANT CHANGE. Lung Scan-VQ NM 09/30/17 12:57 IMPRESSION: LOW PROBABILITY FOR PULMONARY EMBOLISM. Assessment & Plan - Diagnosis (1) Acute respiratory failure with hypoxemia Is this a current diagnosis for this admission?: Yes (2) Chronic interstitial lung disease Is this a current diagnosis for this admission?: Yes (3) Chronic kidney disease, stage 3 Is this a current diagnosis for this admission?: Yes (4) Congestive heart failure Qualifiers: Heart failure type: diastolic Heart failure chronicity: acute Qualified Code(s): I50.31 - Acute diastolic (congestive) heart failure Is this a current diagnosis for this admission?: Yes (5) CAD (coronary artery disease) Qualifiers: Coronary Disease-Associated Artery/Lesion type: unspecified vessel or lesion type Is this a current diagnosis for this admission?: Yes (6) Hypertension Is this a current diagnosis for this admission?: Yes - Notes Notes: Acute respiratory failure with hypoxemia: VQ scan reviewed was noted to be negative. Chronic interstitial lung disease: Patient CT from previous admissions reviewed. Pulmonary following. Chronic kidney disease: This is currently stable. Continue to monitor renal functions. Congestive heart failure: This seems compensated by clinical exam. BNP level will be obtained. Chest x-ray did not show any evidence of CHF. Coronary artery disease: This is symptomatically stable. Continue with current medications and management plans. Hypertension: Blood pressure is under well controlled. Continue current management plans. We will continue to follow patient. Continue cardiac monitoring to look for any arrhythmias etc. so far no significant arrhythmias are noted. Patient has been encouraged in weight loss and walking. An ischemia workup not implants. BNP levels were reviewed and was noted to be negative. Previous CT scan shows bronchiectasis. I wonder if there is significant shunt causing hypoxemia. - Time Time with patient: 15-25 minutes - CODE STATUS was discussed, patient remains full code. Surrogate decision-maker unchanged. Multiple medical problems were addressed. More than 50% of the time spent coordinating care, discussing management plans with involved caregivers. Management plans discussed with involved personnels. Medical decision making was of moderate to high complexity , patient's has multiple comorbidities. Medications reviewed and adjusted accordingly: Yes
--- NOTE | 2017-10-01 20:50 | PDOC PROGRESS REPORT ---
Subjective Progress Note for:: 10/01/17 Subjective:: Patient seems to be doing better with gradual improvement. Patient started on high-dose oxygen therapy to improve VQ mismatch and need for high oxygen therapy.. Pt is denying any chest arm or neck discomfort. Patient denying any PND, orthopnea. Patient denied any sustained palpitations, dizziness, syncope, near syncope. Patient denying any fever chills. Patient denying any other significant discomfort. VQ scan noted to be negative. Patient is maintaining sinus rhythm. Review of systems: Rest review of systems negative. Medications: Medications have been reviewed. Reason For Visit: ACUTE HYPOXEMIC RESPIRATORY FAILURE,BRONCHOIECTASI Physical Exam Vital Signs: Temp Pulse Resp BP Pulse Ox 98.3 F 96 17 147/64 H 90 L 10/01/17 15:19 10/01/17 20:35 10/01/17 20:35 10/01/17 15:19 10/01/17 20:35 Intake & Output 09/30/17 10/01/17 10/02/17 06:59 06:59 06:59 Intake Total 1144 580 890 Output Total 450 Balance 1144 580 440 Weight 104.7 kg 105.1 kg Exam: GENERAL: well-nourished and in no acute distress. Alert and oriented x3 HEAD: Atraumatic, normocephalic. EYES: Pupils equal round and reactive to light, extraocular movements intact, sclera anicteric, conjunctiva are normal. ENT: TMs normal, nares patent, oropharynx clear without exudates. Moist mucous membranes. No oral ulcerations or bleeding gums noted NECK: supple without lymphadenopathy. Trachea is central. No cervical or axillary lymphadenopathy noted. Carotids are 2+, JVD WNL LUNGS: Respiration seems nonlabored, no significant accessory muscle action noted. Breath sounds clear to auscultation bilaterally and equal noted. No wheezes rales or rhonchi noted. No significant dullness noted on percussion. CHEST: Palpation of the chest wall shows no significant chest wall tenderness. No other significant abnormalities noted. 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 ABDOMEN: Soft, no significant tenderness appreciated, normoactive bowel sounds. No guarding, no rebound. No rigidity noted . No masses appreciated. EXTREMITIES: Pedal pulses are 1-2+, no calf tenderness noted. No clubbing or cyanosis.trace to 1+ pedal edema noted NEUROLOGICAL: Focused neurological exam showed no significant neurologic deficit. Normal speech, no focal weakness appreciated. PSYCH: Normal mood, normal affect. Judgment and insight within normal limits. SKIN: No significant ecchymosis, skin is noted to be warm. MUSCULOSKELETAL EXAM: No significant acute joint swelling noted. Results Laboratory Results: 10/01/17 04:46 10/01/17 04:46 10/01/17 10/01/17 04:46 04:46 WBC 6.1 RBC 4.02 Hgb 14.1 Hct 41.8 MCV 104 H MCH 35.1 H MCHC 33.8 RDW 14.9 H Plt Count 164 Seg Neutrophils % 61.5 Lymphocytes % 20.8 Monocytes % 12.6 Eosinophils % 4.6 Basophils % 0.5 Absolute Neutrophils 3.8 Absolute Lymphocytes 1.3 Absolute Monocytes 0.8 Absolute Eosinophils 0.3 Absolute Basophils 0.0 Sodium 142.3 Potassium 4.7 Chloride 108 H Carbon Dioxide 26 Anion Gap 8 BUN 60 H Creatinine 1.68 H Est GFR ( Amer) 37 L Est GFR (Non-Af Amer) 30 L Glucose 101 Calcium 8.6 09/24/17 09/24/17 09/25/17 20:00 20:00 01:11 Creatine Kinase 35 34 CK-MB (CK-2) 0.58 Troponin I < 0.012 NT-Pro-B Natriuret Pep 09/25/17 09/25/17 09/25/17 01:11 06:50 06:50 Creatine Kinase 33 CK-MB (CK-2) 0.38 0.52 Troponin I < 0.012 < 0.012 NT-Pro-B Natriuret Pep 09/29/17 04:37 Creatine Kinase CK-MB (CK-2) Troponin I NT-Pro-B Natriuret Pep 384 EKG Comments: Telemetry shows sinus rhythm. Impressions: Chest/Abdomen CTA 09/24/17 15:07 IMPRESSION: 1. There is no evidence of pulmonary emboli. 2. Extensive chronic changes in the lungs as described. 3. Left-sided superior vena cava. Renal Ultrasound 09/25/17 00:00 IMPRESSION: Mildly limited exam. Grossly normal sonographic appearance of the kidneys. No evidence of hydronephrosis or urinary obstruction. Chest X-Ray 09/30/17 00:00 IMPRESSION: CHRONIC INTERSTITIAL CHANGES AND CHRONIC SCARRING IN THE LEFT UPPER LOBE AND APEX. NO SIGNIFICANT CHANGE. Lung Scan-VQ NM 09/30/17 12:57 IMPRESSION: LOW PROBABILITY FOR PULMONARY EMBOLISM. Assessment & Plan - Diagnosis (1) Acute respiratory failure with hypoxemia Is this a current diagnosis for this admission?: Yes (2) Chronic interstitial lung disease Is this a current diagnosis for this admission?: Yes (3) Chronic kidney disease, stage 3 Is this a current diagnosis for this admission?: Yes (4) Congestive heart failure Qualifiers: Heart failure type: diastolic Heart failure chronicity: acute Qualified Code(s): I50.31 - Acute diastolic (congestive) heart failure Is this a current diagnosis for this admission?: Yes (5) CAD (coronary artery disease) Qualifiers: Coronary Disease-Associated Artery/Lesion type: unspecified vessel or lesion type Is this a current diagnosis for this admission?: Yes (6) Hypertension Is this a current diagnosis for this admission?: Yes - Notes Notes: Acute respiratory failure with hypoxemia: Patient started on bronchodilators and high-dose steroid therapy. Monitor for side effects. As regards significant shunting, will consider a agitated saline study at a later date when patient is more stable or this can be considered as an outpatient. Chronic interstitial lung disease: Patient CT from previous admissions reviewed. Pulmonary following. Chronic kidney disease: This is currently stable. Continue to monitor renal functions. Congestive heart failure: This seems compensated by clinical exam. BNP level will be obtained. Chest x-ray did not show any evidence of CHF. Coronary artery disease: This is symptomatically stable. Continue with current medications and management plans. Hypertension: Blood pressure is under well controlled. Continue current management plans. Patient has remained stable from cardiac standpoint. Will follow patient on as needed basis now.. - Time Time with patient: 15-25 minutes - CODE STATUS was discussed, patient remains full code. Surrogate decision-maker unchanged. Multiple medical problems were addressed. More than 50% of the time spent coordinating care, discussing management plans with involved caregivers. Management plans discussed with involved personnels. Medical decision making was of moderate to high complexity , patient's has multiple comorbidities. Medications reviewed and adjusted accordingly: Yes
[2017-10-02] MEDS: METHYLPREDNISOLONE INJ 40 MG/1 ML SDV IV SCH (02:02)
[2017-10-02] MEDS: LEVOTHYROXINE SODIUM 0.025 MG TABLET PO SCH (05:50)
[2017-10-02] MEDS: HYDRALAZINE HCL 25 MG TABLET PO SCH ×3 (05:50→21:16)
[2017-10-02 06:08] LABS: ABSOLUTE LYMPHOCYTES (AUTO) 0.4 10^3/uL (0.5-4.7); ABSOLUTE MONOCYTES (AUTO) 0.2 10^3/uL (0.1-1.4); ABSOLUTE NEUT (AUTO) 5.7 10^3/uL (1.7-8.2); BASOPHILS % (AUTO) 0.1 % (0-2); EOSINOPHILS % (AUTO) 0.4 % (0-6); HEMATOCRIT 43.9 % (36.0-47.0); HEMOGLOBIN 14.8 g/dL (12.0-15.5); MEAN CORPUSCULAR HEMOGLOBIN 35.3 pg (27.0-33.4); MEAN CORPUSCULAR HGB CONC 33.7 g/dL (32.0-36.0); MEAN CORPUSCULAR VOLUME 105 fl (80-97); MONOCYTES % (AUTO) 2.8 % (3-13); PLATELET COUNT 179 10^3/uL (150-450); RED BLOOD COUNT 4.19 10^6/uL (3.72-5.28); RED CELL DISTRIBUTION WIDTH 14.7 % (11.5-14.0); SEGMENTED NEUTROPHILS % (AUTO) 89.7 % (42-78); TOTAL CELLS COUNTED % (AUTO) 100 %; WHITE BLOOD COUNT 6.4 10^3/uL (4.0-10.5)
[2017-10-02 06:29] LABS: ANION GAP 8 (5-19); BLOOD UREA NITROGEN 53 mg/dL (7-20); CALCIUM 9.5 mg/dL (8.4-10.2); CARBON DIOXIDE 25 mmol/L (22-30); CHLORIDE 108 mmol/L (98-107); GLUCOSE 123 mg/dL (75-110); POTASSIUM 5.3 mmol/L (3.6-5.0); SODIUM 140.5 mmol/L (137-145)
[2017-10-02] MEDS: BUDESONIDE NEB 0.5 MG/2 ML AMPUL NEB SCH ×2 (08:52→20:32)
[2017-10-02] MEDS: FLUTICASONE NASAL SPRAY 50 MCG/SPRY 120 SPRAY/16 GM NASL SCH (09:36)
[2017-10-02] MEDS: ENOXAPARIN SODIUM INJ 30 MG/0.3 ML DISP.SYRIN SUBCUT SCH (09:36)
[2017-10-02] MEDS: FUROSEMIDE 40 MG TABLET PO SCH (09:36)
[2017-10-02] MEDS: POTASSIUM CHLORIDE 10 MEQ TABLET.SA PO SCH (09:36)
[2017-10-02] MEDS: ASPIRIN 81 MG TABLET, ENT COATED PO SCH (09:36)
[2017-10-02] MEDS: OMEGA-3 ACID ETHYL ESTERS 1 GM CAPSULE PO SCH (09:36)
--- NOTE | 2017-10-02 16:49 | PDOC PROGRESS REPORT ---
Subjective Progress Note for:: 10/02/17 Subjective:: Patient continue to experience exertional dyspnea. Remain on supplemental oxygen via nasal cannula. No chest pain. No nausea, vomiting, or abdominal pain. No fever or chills. Reason For Visit: ACUTE HYPOXEMIC RESPIRATORY FAILURE,BRONCHOIECTASI Physical Exam Vital Signs: Temp Pulse Resp BP Pulse Ox 97.3 F 56 L 18 148/64 H 96 10/02/17 11:40 10/02/17 11:40 10/02/17 11:40 10/02/17 11:40 10/02/17 16:31 Intake & Output 10/01/17 10/02/17 10/03/17 06:59 06:59 06:59 Intake Total 580 1190 Output Total 568 Balance 580 622 Weight 105.1 kg 105.1 kg General appearance: PRESENT: mild distress, obese Head exam: PRESENT: atraumatic, normocephalic Eye exam: PRESENT: conjunctiva pink, EOMI, PERRLA. ABSENT: scleral icterus Mouth exam: PRESENT: moist Respiratory exam: PRESENT: decreased breath sounds, rhonchi - expiratory phase Cardiovascular exam: PRESENT: RRR. ABSENT: diastolic murmur, rubs, systolic murmur GI/Abdominal exam: PRESENT: normal bowel sounds, soft. ABSENT: distended, guarding, mass, organolmegaly, rebound, tenderness Extremities exam: ABSENT: pedal edema Musculoskeletal exam: PRESENT: ambulatory - with dyspnea walking to her room toilet Neurological exam: PRESENT: alert, awake, oriented to person, oriented to place , oriented to time, oriented to situation, CN II-XII grossly intact. ABSENT: motor sensory deficit Psychiatric exam: PRESENT: agitated Skin exam: PRESENT: dry, intact, warm. ABSENT: cyanosis, rash Results Laboratory Results: 10/02/17 05:38 10/02/17 05:38 10/02/17 10/02/17 05:38 05:38 WBC 6.4 RBC 4.19 Hgb 14.8 Hct 43.9 MCV 105 H MCH 35.3 H MCHC 33.7 RDW 14.7 H Plt Count 179 Seg Neutrophils % 89.7 H Lymphocytes % 7.0 L Monocytes % 2.8 L Eosinophils % 0.4 Basophils % 0.1 Absolute Neutrophils 5.7 Absolute Lymphocytes 0.4 L Absolute Monocytes 0.2 Absolute Eosinophils 0.0 Absolute Basophils 0.0 Sodium 140.5 Potassium 5.3 H Chloride 108 H Carbon Dioxide 25 Anion Gap 8 BUN 53 H Creatinine 1.35 H Est GFR ( Amer) 47 L Est GFR (Non-Af Amer) 39 L Glucose 123 H Calcium 9.5 09/24/17 09/24/17 09/25/17 20:00 20:00 01:11 Creatine Kinase 35 34 CK-MB (CK-2) 0.58 Troponin I < 0.012 NT-Pro-B Natriuret Pep 09/25/17 09/25/17 09/25/17 01:11 06:50 06:50 Creatine Kinase 33 CK-MB (CK-2) 0.38 0.52 Troponin I < 0.012 < 0.012 NT-Pro-B Natriuret Pep 09/29/17 04:37 Creatine Kinase CK-MB (CK-2) Troponin I NT-Pro-B Natriuret Pep 384 Impressions: Chest/Abdomen CTA 09/24/17 15:07 IMPRESSION: 1. There is no evidence of pulmonary emboli. 2. Extensive chronic changes in the lungs as described. 3. Left-sided superior vena cava. Renal Ultrasound 09/25/17 00:00 IMPRESSION: Mildly limited exam. Grossly normal sonographic appearance of the kidneys. No evidence of hydronephrosis or urinary obstruction. Chest X-Ray 09/30/17 00:00 IMPRESSION: CHRONIC INTERSTITIAL CHANGES AND CHRONIC SCARRING IN THE LEFT UPPER LOBE AND APEX. NO SIGNIFICANT CHANGE. Lung Scan-VQ NM 09/30/17 12:57 IMPRESSION: LOW PROBABILITY FOR PULMONARY EMBOLISM. Assessment & Plan - Diagnosis (1) Chronic interstitial lung disease Is this a current diagnosis for this admission?: Yes Plan: D/C IV Solu Medrol. Start on Prednisone 30 mg p.o daily with first dose now. Continue all other current medication management. (2) Chronic kidney disease, stage 3 Is this a current diagnosis for this admission?: Yes Plan: See covering attending physician orders. (3) CAD (coronary artery disease) Qualifiers: Coronary Disease-Associated Artery/Lesion type: unspecified vessel or lesion type Is this a current diagnosis for this admission?: Yes Plan: See covering attending physician orders. (4) Hypertension Qualifiers: Hypertension type: essential hypertension Qualified Code(s): I10 - Essential (primary) hypertension Is this a current diagnosis for this admission?: Yes Plan: See covering attending physician orders. - Time Time Spent with patient: 25-34 minutes Medications reviewed and adjusted accordingly: Yes Anticipated discharge: Home Within: Other - Inpatient Certification Based on my medical assessment, after consideration of the patient's comorbidities, presenting symptoms, or acuity I expect that the services needed warrant INPATIENT care.: Yes I certify that my determination is in accordance with my understanding of Medicare's requirements for reasonable and necessary INPATIENT services [42 CFR 412.3e].: Yes Medical Necessity: Need Close Monitoring Due to Risk of Patient Decompensation, Need For Continuous Telemetry Monitoring, Need for Nebulizer Therapy and Monitoring of Response, Risk of Complication if Not Cared For in Hospital Post Hospital Care: D/C Staff Toxicologist Documentation - Plan Summary Plan Summary: See covering attending physician orders.
[2017-10-02] MEDS ORDERED: PREDNISONE 20 MG TABLET PO ONE (17:30)
[2017-10-02] MEDS: CETIRIZINE 5 MG TABLET PO SCH (17:51)
[2017-10-03] MEDS: LEVOTHYROXINE SODIUM 0.025 MG TABLET PO SCH (05:10)
[2017-10-03] MEDS: HYDRALAZINE HCL 25 MG TABLET PO SCH ×3 (05:10→21:13)
[2017-10-03 06:18] LABS: ABSOLUTE LYMPHOCYTES (AUTO) 0.6 10^3/uL (0.5-4.7); ABSOLUTE MONOCYTES (AUTO) 0.4 10^3/uL (0.1-1.4); ABSOLUTE NEUT (AUTO) 8.6 10^3/uL (1.7-8.2); BASOPHILS % (AUTO) 0.3 % (0-2); HEMATOCRIT 42.2 % (36.0-47.0); HEMOGLOBIN 14.3 g/dL (12.0-15.5); LYMPHOCYTES % (AUTO) 6.2 % (13-45); MEAN CORPUSCULAR HEMOGLOBIN 35.3 pg (27.0-33.4); MEAN CORPUSCULAR HGB CONC 33.8 g/dL (32.0-36.0); MEAN CORPUSCULAR VOLUME 104 fl (80-97); MONOCYTES % (AUTO) 3.8 % (3-13); PLATELET COUNT 194 10^3/uL (150-450); RED BLOOD COUNT 4.05 10^6/uL (3.72-5.28); RED CELL DISTRIBUTION WIDTH 14.7 % (11.5-14.0); SEGMENTED NEUTROPHILS % (AUTO) 89.7 % (42-78); TOTAL CELLS COUNTED % (AUTO) 100 %; WHITE BLOOD COUNT 9.6 10^3/uL (4.0-10.5)
[2017-10-03 07:27] LABS: ANION GAP 7 (5-19); BLOOD UREA NITROGEN 56 mg/dL (7-20); CALCIUM 9.5 mg/dL (8.4-10.2); CARBON DIOXIDE 25 mmol/L (22-30); CHLORIDE 106 mmol/L (98-107); GLUCOSE 124 mg/dL (75-110); SODIUM 138.2 mmol/L (137-145)
[2017-10-03] MEDS: BUDESONIDE NEB 0.5 MG/2 ML AMPUL NEB SCH ×2 (08:20→19:40)
[2017-10-03] MEDS: ENOXAPARIN SODIUM INJ 30 MG/0.3 ML DISP.SYRIN SUBCUT SCH (09:27)
[2017-10-03] MEDS: FUROSEMIDE 40 MG TABLET PO SCH (09:27)
[2017-10-03] MEDS: POTASSIUM CHLORIDE 10 MEQ TABLET.SA PO SCH (09:27)
[2017-10-03] MEDS: OMEGA-3 ACID ETHYL ESTERS 1 GM CAPSULE PO SCH (09:27)
[2017-10-03] MEDS: PREDNISONE 20 MG TABLET PO SCH (09:27)
[2017-10-03] MEDS: ASPIRIN 81 MG TABLET, ENT COATED PO SCH (09:27)
[2017-10-03] MEDS: FLUTICASONE NASAL SPRAY 50 MCG/SPRY 120 SPRAY/16 GM NASL SCH (09:27)
--- NOTE | 2017-10-03 17:28 | PDOC PROGRESS REPORT ---
Subjective Progress Note for:: 10/03/17 Subjective:: Patient attempted walking earlier today without supplemental oxygen. She de- saturated into the lower 60's with exertion and without supplemental oxygen. No chest pain. No nausea, vomiting, or abdominal pain. No fever or chills. Reason For Visit: ACUTE HYPOXEMIC RESPIRATORY FAILURE,BRONCHOIECTASI Physical Exam Vital Signs: Temp Pulse Resp BP Pulse Ox 98.2 F 58 L 24 H 145/65 H 93 10/03/17 15:27 10/03/17 15:27 10/03/17 15:27 10/03/17 15:27 10/03/17 15:27 Intake & Output 10/02/17 10/03/17 10/04/17 06:59 06:59 06:59 Intake Total 1190 1441 Output Total 568 600 Balance 622 841 Weight 105.1 kg 106 kg Physical Exam: General appearance: PRESENT: mild distress, obese Head exam: PRESENT: atraumatic, normocephalic Eye exam: PRESENT: conjunctiva pink, EOMI, PERRLA. ABSENT: scleral icterus Mouth exam: PRESENT: moist Respiratory exam: PRESENT: decreased breath sounds, minimal rhonchi - expiratory phase Cardiovascular exam: PRESENT: RRR. ABSENT: diastolic murmur, rubs, systolic murmur GI/Abdominal exam: PRESENT: normal bowel sounds, soft. ABSENT: distended, guarding, mass, organomegaly, rebound, tenderness Extremities exam: ABSENT: pedal edema Musculoskeletal exam: PRESENT: ambulatory - with dyspnea walking to her room. Remain on supplemental oxygen. Neurological exam: PRESENT: alert, awake, oriented to person, oriented to place , oriented to time, oriented to situation, CN II-XII grossly intact. ABSENT: motor sensory deficit Psychiatric exam: PRESENT: agitated Skin exam: PRESENT: dry, intact, warm. ABSENT: cyanosis, rash Results Laboratory Results: 10/03/17 05:24 10/03/17 05:24 10/03/17 10/03/17 05:24 05:24 WBC 9.6 RBC 4.05 Hgb 14.3 Hct 42.2 MCV 104 H MCH 35.3 H MCHC 33.8 RDW 14.7 H Plt Count 194 Seg Neutrophils % 89.7 H Lymphocytes % 6.2 L Monocytes % 3.8 Eosinophils % 0.0 Basophils % 0.3 Absolute Neutrophils 8.6 H Absolute Lymphocytes 0.6 Absolute Monocytes 0.4 Absolute Eosinophils 0.0 Absolute Basophils 0.0 Sodium 138.2 Potassium 5.0 Chloride 106 Carbon Dioxide 25 Anion Gap 7 BUN 56 H Creatinine 1.49 H Est GFR ( Amer) 42 L Est GFR (Non-Af Amer) 35 L Glucose 124 H Calcium 9.5 09/24/17 09/24/17 09/25/17 20:00 20:00 01:11 Creatine Kinase 35 34 CK-MB (CK-2) 0.58 Troponin I < 0.012 NT-Pro-B Natriuret Pep 09/25/17 09/25/17 09/25/17 01:11 06:50 06:50 Creatine Kinase 33 CK-MB (CK-2) 0.38 0.52 Troponin I < 0.012 < 0.012 NT-Pro-B Natriuret Pep 09/29/17 04:37 Creatine Kinase CK-MB (CK-2) Troponin I NT-Pro-B Natriuret Pep 384 Impressions: Chest/Abdomen CTA 09/24/17 15:07 IMPRESSION: 1. There is no evidence of pulmonary emboli. 2. Extensive chronic changes in the lungs as described. 3. Left-sided superior vena cava. Renal Ultrasound 09/25/17 00:00 IMPRESSION: Mildly limited exam. Grossly normal sonographic appearance of the kidneys. No evidence of hydronephrosis or urinary obstruction. Chest X-Ray 09/30/17 00:00 IMPRESSION: CHRONIC INTERSTITIAL CHANGES AND CHRONIC SCARRING IN THE LEFT UPPER LOBE AND APEX. NO SIGNIFICANT CHANGE. Lung Scan-VQ NM 09/30/17 12:57 IMPRESSION: LOW PROBABILITY FOR PULMONARY EMBOLISM. Assessment & Plan - Diagnosis (1) Chronic interstitial lung disease Is this a current diagnosis for this admission?: Yes (2) Chronic kidney disease, stage 3 Is this a current diagnosis for this admission?: Yes (3) CAD (coronary artery disease) Qualifiers: Coronary Disease-Associated Artery/Lesion type: unspecified vessel or lesion type Is this a current diagnosis for this admission?: Yes (4) Hypertension Qualifiers: Hypertension type: essential hypertension Qualified Code(s): I10 - Essential (primary) hypertension Is this a current diagnosis for this admission?: Yes - Time Time Spent with patient: 25-34 minutes Medications reviewed and adjusted accordingly: Yes Anticipated discharge: Home with Homehealth - with [facility] COPD program - Inpatient Certification Based on my medical assessment, after consideration of the patient's comorbidities, presenting symptoms, or acuity I expect that the services needed warrant INPATIENT care.: Yes I certify that my determination is in accordance with my understanding of Medicare's requirements for reasonable and necessary INPATIENT services [42 CFR 412.3e].: Yes Medical Necessity: Need For Continuous Telemetry Monitoring, Need for Nebulizer Therapy and Monitoring of Response, Risk of Complication if Not Cared For in Hospital Post Hospital Care: D/C [employer] Documentation - Plan Summary Plan Summary: Continue current medication management. Decrease Prednisone to 20 mg po daily from tomorrow morning. Patient will need home and ambulatory supple mental oxygen upon discharge.
[2017-10-03] MEDS: CETIRIZINE 5 MG TABLET PO SCH (17:40)
[2017-10-04 05:32] LABS: ABSOLUTE LYMPHOCYTES (AUTO) 1.2 10^3/uL (0.5-4.7); ABSOLUTE MONOCYTES (AUTO) 0.7 10^3/uL (0.1-1.4); ABSOLUTE NEUT (AUTO) 6.6 10^3/uL (1.7-8.2); EOSINOPHILS % (AUTO) 0.1 % (0-6); HEMATOCRIT 42.3 % (36.0-47.0); HEMOGLOBIN 14.2 g/dL (12.0-15.5); LYMPHOCYTES % (AUTO) 13.8 % (13-45); MEAN CORPUSCULAR HGB CONC 33.6 g/dL (32.0-36.0); MEAN CORPUSCULAR VOLUME 104 fl (80-97); MONOCYTES % (AUTO) 8.5 % (3-13); PLATELET COUNT 184 10^3/uL (150-450); RED BLOOD COUNT 4.06 10^6/uL (3.72-5.28); RED CELL DISTRIBUTION WIDTH 14.5 % (11.5-14.0); SEGMENTED NEUTROPHILS % (AUTO) 77.6 % (42-78); TOTAL CELLS COUNTED % (AUTO) 100 %; WHITE BLOOD COUNT 8.5 10^3/uL (4.0-10.5)
[2017-10-04 05:55] LABS: ANION GAP 9 (5-19); BLOOD UREA NITROGEN 65 mg/dL (7-20); CALCIUM 9.3 mg/dL (8.4-10.2); CARBON DIOXIDE 25 mmol/L (22-30); CHLORIDE 103 mmol/L (98-107); GLUCOSE 114 mg/dL (75-110); POTASSIUM 5.1 mmol/L (3.6-5.0); SODIUM 136.5 mmol/L (137-145)
[2017-10-04] MEDS: LEVOTHYROXINE SODIUM 0.025 MG TABLET PO SCH (06:41)
[2017-10-04] MEDS: HYDRALAZINE HCL 25 MG TABLET PO SCH ×2 (06:42→13:48)
[2017-10-04] MEDS: BUDESONIDE NEB 0.5 MG/2 ML AMPUL NEB SCH (09:01)
[2017-10-04] MEDS: ENOXAPARIN SODIUM INJ 30 MG/0.3 ML DISP.SYRIN SUBCUT SCH (09:40)
[2017-10-04] MEDS: ASPIRIN 81 MG TABLET, ENT COATED PO SCH (09:41)
[2017-10-04] MEDS: FUROSEMIDE 40 MG TABLET PO SCH (09:41)
[2017-10-04] MEDS: POTASSIUM CHLORIDE 10 MEQ TABLET.SA PO SCH (09:41)
[2017-10-04] MEDS: OMEGA-3 ACID ETHYL ESTERS 1 GM CAPSULE PO SCH (09:42)
[2017-10-04] MEDS: PREDNISONE 20 MG TABLET PO SCH (09:42)
[2017-10-04] MEDS: FLUTICASONE NASAL SPRAY 50 MCG/SPRY 120 SPRAY/16 GM NASL SCH (09:42)
--- NOTE | 2017-10-04 13:56 | PDOC DISCHARGE SUMMARY ---
General - Admit/Disc Date/PCP Admission Date/Primary Care Provider: 09/24/17 17:55 MAGDI REYES MD Discharge Date: 10/04/17 - Discharge Diagnosis (1) Chronic interstitial lung disease Is this a current diagnosis for this admission?: Yes Summary: Currently continues on oxygens (2) Chronic kidney disease, stage 3 Is this a current diagnosis for this admission?: Yes Summary: Follow-up outpatients Dr. Cui (3) CAD (coronary artery disease) Is this a current diagnosis for this admission?: Yes Summary: Currently all stable (4) Hypertension Is this a current diagnosis for this admission?: Yes Summary: Currently all stable (5) Congestive heart failure Is this a current diagnosis for this admission?: Yes Summary: Similar diastolic congestive heart failureSeen by Dr. Enid benavides outpatient - Additional Information Resuscitation Status: Full Code Discharge Diet: Cardiac Prescriptions: Prednisone [Deltasone 20 mg Tablet] 10 mg PO DAILY #10 tablet Home Medications: Albuterol Sulfate [Ventolin HFA MDI 18 GM] 2 puff IH Q4HP PRN 09/24/17 Aspirin [Ecotrin 81 mg EC Tablet] 81 mg PO DAILY 09/24/17 Carvedilol [Coreg 6.25 mg Tablet] 12.5 mg PO Q12 09/24/17 Fluticasone Propionate [Flonase Nasal [place] 50 Mcg/[place] 16 gm] 1 spray NASL DAILY 09/24/17 Furosemide [Lasix 40 mg Tablet] 40 mg PO DAILY 09/24/17 Hydralazine HCl [Apresoline 25 mg Tablet] 25 mg PO Q8 09/24/17 Levocetirizine Dihydrochloride [Xyzal] 5 mg PO QPM 09/24/17 Levothyroxine Sodium [Synthroid 0.025 mg Tablet] 0.025 mg PO Q6AM 09/24/17 Nitroglycerin [Nitrostat] 0.4 mg SL Q5MP PRN 09/24/17 [place]-3 Fatty Acids/Fish Oil [Fish Oil 1,000 mg Capsule] 1 cap PO DAILY Ondansetron HCl [Zofran 4 mg Tablet] 4 mg PO Q12HP PRN 09/24/17 Prednisone [Deltasone 20 mg Tablet] 10 mg PO DAILY #10 tablet 10/04/17 History of Present Illness History of Present Illness: NELI BAEZ is a 71 year old female This 71-year-old female with several medical conditions came to the emergency department with a complaint was shortness of the breath and patient's admitting in the telemetry bed for further evaluations and seen by the cardiology and pulmonary Hospital Course Hospital Course: This 71-year-old female is about medical conditions came to the emergency department with a complaint was shortness of the breath and patient is admitting in the telemetry bed for further evaluations patient have a CT angiogram was done in the ER was negative for any PE and patient's cardiac versus cup was also negative Patient also underwent for the VQ scan to rule out any further etiology which also negative an echocardiogram was done was supposed to mild diastolic dysfunctions and seen by the cardiology and pulmonary Patient also for chronic kidney disease currently all stable Patients require a full profile from the oxygens and very extensive discussions with the Dr. Salinas's and cardiology and suggest the patient is currently discharged with the oxygen at home when patient is already started feeling better but possible underlying interstitial lung disease Patients walk in the hallway with oxygens and patient's potassium is currently hold and follow outpatient in 2-3 days and repeat the Chem-7 and follow with the pulmonary and cardiology Physical Exam Vital Signs: Temp Pulse Resp BP Pulse Ox 97.4 F 53 L 19 145/72 H 97 10/04/17 11:28 10/04/17 11:28 10/04/17 11:28 10/04/17 11:28 10/04/17 11:28 Intake & Output 10/03/17 10/04/17 10/05/17 06:59 06:59 06:59 Intake Total 1441 1530 Output Total 600 Balance 841 1530 Weight 106 kg 108.2 kg General appearance: PRESENT: no acute distress, well-developed, well-nourished Head exam: PRESENT: atraumatic, normocephalic Eye exam: PRESENT: conjunctiva pink, EOMI, PERRLA. ABSENT: scleral icterus Ear exam: PRESENT: normal external ear exam Mouth exam: PRESENT: moist, tongue midline Neck exam: PRESENT: full ROM. ABSENT: carotid bruit, JVD, lymphadenopathy, thyromegaly Respiratory exam: PRESENT: clear to auscultation rafiq Cardiovascular exam: PRESENT: RRR. ABSENT: diastolic murmur, rubs, systolic murmur Pulses: PRESENT: normal dorsalis pedis pul, +2 pedal pulses bilateral Vascular exam: PRESENT: normal capillary refill GI/Abdominal exam: PRESENT: normal bowel sounds, soft. ABSENT: distended, guarding, mass, organolmegaly, rebound, tenderness Rectal exam: PRESENT: deferred Extremities exam: ABSENT: pedal edema Musculoskeletal exam: PRESENT: ambulatory Neurological exam: PRESENT: alert, awake, oriented to person, oriented to place , oriented to time, oriented to situation, CN II-XII grossly intact. ABSENT: motor sensory deficit Psychiatric exam: PRESENT: appropriate affect, normal mood. ABSENT: homicidal ideation, suicidal ideation Skin exam: PRESENT: dry, intact, warm. ABSENT: cyanosis, rash Results Laboratory Results: 10/04/17 04:46 10/04/17 04:46 10/04/17 10/04/17 04:46 04:46 WBC 8.5 RBC 4.06 Hgb 14.2 Hct 42.3 MCV 104 H MCH 35.0 H MCHC 33.6 RDW 14.5 H Plt Count 184 Seg Neutrophils % 77.6 Lymphocytes % 13.8 Monocytes % 8.5 Eosinophils % 0.1 Basophils % 0.0 Absolute Neutrophils 6.6 Absolute Lymphocytes 1.2 Absolute Monocytes 0.7 Absolute Eosinophils 0.0 Absolute Basophils 0.0 Sodium 136.5 L Potassium 5.1 H Chloride 103 Carbon Dioxide 25 Anion Gap 9 BUN 65 H Creatinine 1.66 H Est GFR ( Amer) 37 L Est GFR (Non-Af Amer) 31 L Glucose 114 H Calcium 9.3 09/24/17 09/24/17 09/25/17 20:00 20:00 01:11 Creatine Kinase 35 34 CK-MB (CK-2) 0.58 Troponin I < 0.012 NT-Pro-B Natriuret Pep 09/25/17 09/25/17 09/25/17 01:11 06:50 06:50 Creatine Kinase 33 CK-MB (CK-2) 0.38 0.52 Troponin I < 0.012 < 0.012 NT-Pro-B Natriuret Pep 09/29/17 04:37 Creatine Kinase CK-MB (CK-2) Troponin I NT-Pro-B Natriuret Pep 384 Impressions: Chest/Abdomen CTA 09/24/17 15:07 IMPRESSION: 1. There is no evidence of pulmonary emboli. 2. Extensive chronic changes in the lungs as described. 3. Left-sided superior vena cava. Renal Ultrasound 09/25/17 00:00 IMPRESSION: Mildly limited exam. Grossly normal sonographic appearance of the kidneys. No evidence of hydronephrosis or urinary obstruction. Chest X-Ray 09/30/17 00:00 IMPRESSION: CHRONIC INTERSTITIAL CHANGES AND CHRONIC SCARRING IN THE LEFT UPPER LOBE AND APEX. NO SIGNIFICANT CHANGE. Lung Scan-VQ NM 09/30/17 12:57 IMPRESSION: LOW PROBABILITY FOR PULMONARY EMBOLISM. Qualifiers - * PATEINT BEING DISCHARGED WITH ANY OF THE FOLLOWING DIAGNOSIS?: Heart Failure VTE patient discharged on overlapping Therapy?: Yes HF Pt being discharged on ACEI for LVEF less than 40%?: No Reason(s) for not prescribing ACEI:: Contraindicated HF Pt being discharged on ARBS for LVEF less than 40%?: No Reason(s) for not prescribing ARBS:: Contraindicated HF Pt with Afib discharged with Warfarin?: No Reason(s) for not prescribing Warfarin:: Contraindicated HF Pt discharged on evidence-based Beta Reilly:: No Reason(s) for not prescribing evidence-based Beta Reilly:: Contraindicated Plan Time Spent: Greater than 30 Minutes - Patient is discharged home with the oxygens patient oxygen level dropped without oxygen's dropped to 80% so patients need home oxygen support pulmonary We will repeat the Chem-7 in 1 week and follow with the cardiology pulmonary and nephrology as outpatient
[2017-10-04] MEDS ORDERED: SODIUM POLYSTYRENE SULFONATE 15 GM/60 ML PO ONE (15:00)
[2017-10-04 17:50] VITALS: BP 145/62
--- NOTE | 2017-10-04 22:38 | PDOC PROGRESS REPORT ---
Subjective Progress Note for:: 09/30/17 Subjective:: feeling better but still short of breath Reason For Visit: ACUTE HYPOXEMIC RESPIRATORY FAILURE,BRONCHOIECTASI Physical Exam Vital Signs: Temp Pulse Resp BP Pulse Ox 97.3 F 55 L 16 124/57 L 92 09/30/17 11:06 09/30/17 11:06 09/30/17 11:06 09/30/17 11:06 09/30/17 11:06 Intake & Output 09/29/17 09/30/17 10/01/17 06:59 06:59 06:59 Intake Total 877 1144 460 Output Total 900 Balance -23 1144 460 Weight 107.5 kg 104.7 kg General appearance: PRESENT: no acute distress, cooperative, morbidly obese Head exam: PRESENT: atraumatic, normocephalic Eye exam: PRESENT: conjunctiva pale, EOMI Mouth exam: PRESENT: dry mucosa, neck supple, tongue midline Neck exam: ABSENT: carotid bruit, JVD, lymphadenopathy, thyromegaly, tracheal deviation, tracheostomy Respiratory exam: PRESENT: decreased breath sounds, prolonged expiratory phas, rhonchi, symmetrical, unlabored. ABSENT: rales, stridor, tachypnea Cardiovascular exam: PRESENT: RRR, +S1, +S2 Pulses: PRESENT: normal radial pulses GI/Abdominal exam: PRESENT: diminished bowel sounds, soft Extremities exam: ABSENT: clubbing Musculoskeletal exam: ABSENT: deformity, dislocation Results Laboratory Results: 09/30/17 05:23 09/30/17 02:53 09/30/17 09/30/17 02:53 05:23 WBC 5.5 RBC 4.05 Hgb 14.3 Hct 42.3 MCV 104 H MCH 35.2 H MCHC 33.7 RDW 14.8 H Plt Count 153 Seg Neutrophils % 59.1 Lymphocytes % 24.5 Monocytes % 11.1 Eosinophils % 5.0 Basophils % 0.3 Absolute Neutrophils 3.3 Absolute Lymphocytes 1.3 Absolute Monocytes 0.6 Absolute Eosinophils 0.3 Absolute Basophils 0.0 Sodium 139.8 Potassium 4.6 Chloride 106 Carbon Dioxide 24 Anion Gap 10 BUN 57 H Creatinine 1.70 H Est GFR ( Amer) 36 L Est GFR (Non-Af Amer) 30 L Glucose 87 Calcium 8.4 09/24/17 20:00 Blood Blood Culture - Final NO GROWTH IN 5 DAYS 09/24/17 09/24/17 09/25/17 20:00 20:00 01:11 Creatine Kinase 35 34 CK-MB (CK-2) 0.58 Troponin I < 0.012 NT-Pro-B Natriuret Pep 09/25/17 09/25/17 09/25/17 01:11 06:50 06:50 Creatine Kinase 33 CK-MB (CK-2) 0.38 0.52 Troponin I < 0.012 < 0.012 NT-Pro-B Natriuret Pep 09/29/17 04:37 Creatine Kinase CK-MB (CK-2) Troponin I NT-Pro-B Natriuret Pep 384 Impressions: Chest/Abdomen CTA 09/24/17 15:07 IMPRESSION: 1. There is no evidence of pulmonary emboli. 2. Extensive chronic changes in the lungs as described. 3. Left-sided superior vena cava. Renal Ultrasound 09/25/17 00:00 IMPRESSION: Mildly limited exam. Grossly normal sonographic appearance of the kidneys. No evidence of hydronephrosis or urinary obstruction. Chest X-Ray 09/29/17 00:00 IMPRESSION: No significant interval changes compared to the previous study. No acute changes. Other findings as noted above Assessment & Plan - Diagnosis (1) Acute respiratory failure with hypoxemia Is this a current diagnosis for this admission?: Yes (2) Chronic interstitial lung disease Is this a current diagnosis for this admission?: Yes (3) Chronic kidney disease, stage 3 Is this a current diagnosis for this admission?: Yes (4) Hypertension Is this a current diagnosis for this admission?: Yes (5) Obesity hypoventilation syndrome Is this a current diagnosis for this admission?: Yes
--- NOTE | 2017-10-04 22:41 | PDOC PROGRESS REPORT ---
Subjective Progress Note for:: 10/01/17 Subjective:: feeling better but still short of breath Reason For Visit: ACUTE HYPOXEMIC RESPIRATORY FAILURE,BRONCHOIECTASI Physical Exam Vital Signs: Temp Pulse Resp BP Pulse Ox 97.5 F 50 L 16 145/62 H 94 10/04/17 17:47 10/04/17 17:47 10/04/17 17:47 10/04/17 17:47 10/04/17 17:47 Intake & Output 10/03/17 10/04/17 10/05/17 06:59 06:59 06:59 Intake Total 1441 1530 1056 Output Total 600 Balance 841 1530 1056 Weight 106 kg 108.2 kg General appearance: PRESENT: no acute distress, cooperative, disheveled, morbidly obese Head exam: PRESENT: atraumatic, normocephalic Eye exam: PRESENT: conjunctiva pale, EOMI. ABSENT: nystagmus, periorbital swelling, scleral icterus Mouth exam: PRESENT: dry mucosa, neck supple, tongue midline Neck exam: ABSENT: carotid bruit, JVD, lymphadenopathy, thyromegaly, tracheal deviation, tracheostomy Respiratory exam: PRESENT: decreased breath sounds, prolonged expiratory phas, rales, rhonchi, symmetrical, unlabored, wheezes. ABSENT: stridor, tachypnea Cardiovascular exam: PRESENT: RRR, +S1, +S2 Pulses: PRESENT: normal radial pulses GI/Abdominal exam: PRESENT: diminished bowel sounds, soft Extremities exam: ABSENT: clubbing, joint swelling Musculoskeletal exam: ABSENT: deformity, dislocation Neurological exam: PRESENT: alert, awake Psychiatric exam: PRESENT: normal mood Skin exam: PRESENT: dry, warm Results Laboratory Results: 10/04/17 04:46 10/04/17 04:46 10/04/17 10/04/17 04:46 04:46 WBC 8.5 RBC 4.06 Hgb 14.2 Hct 42.3 MCV 104 H MCH 35.0 H MCHC 33.6 RDW 14.5 H Plt Count 184 Seg Neutrophils % 77.6 Lymphocytes % 13.8 Monocytes % 8.5 Eosinophils % 0.1 Basophils % 0.0 Absolute Neutrophils 6.6 Absolute Lymphocytes 1.2 Absolute Monocytes 0.7 Absolute Eosinophils 0.0 Absolute Basophils 0.0 Sodium 136.5 L Potassium 5.1 H Chloride 103 Carbon Dioxide 25 Anion Gap 9 BUN 65 H Creatinine 1.66 H Est GFR ( Amer) 37 L Est GFR (Non-Af Amer) 31 L Glucose 114 H Calcium 9.3 09/24/17 09/24/17 09/25/17 20:00 20:00 01:11 Creatine Kinase 35 34 CK-MB (CK-2) 0.58 Troponin I < 0.012 NT-Pro-B Natriuret Pep 09/25/17 09/25/17 09/25/17 01:11 06:50 06:50 Creatine Kinase 33 CK-MB (CK-2) 0.38 0.52 Troponin I < 0.012 < 0.012 NT-Pro-B Natriuret Pep 09/29/17 04:37 Creatine Kinase CK-MB (CK-2) Troponin I NT-Pro-B Natriuret Pep 384 Impressions: Chest/Abdomen CTA 09/24/17 15:07 IMPRESSION: 1. There is no evidence of pulmonary emboli. 2. Extensive chronic changes in the lungs as described. 3. Left-sided superior vena cava. Renal Ultrasound 09/25/17 00:00 IMPRESSION: Mildly limited exam. Grossly normal sonographic appearance of the kidneys. No evidence of hydronephrosis or urinary obstruction. Chest X-Ray 09/30/17 00:00 IMPRESSION: CHRONIC INTERSTITIAL CHANGES AND CHRONIC SCARRING IN THE LEFT UPPER LOBE AND APEX. NO SIGNIFICANT CHANGE. Lung Scan-VQ NM 09/30/17 12:57 IMPRESSION: LOW PROBABILITY FOR PULMONARY EMBOLISM. Assessment & Plan - Diagnosis (1) Acute respiratory failure with hypoxemia Is this a current diagnosis for this admission?: Yes Plan: will add ICS and iv solumedrol (2) Chronic interstitial lung disease Is this a current diagnosis for this admission?: Yes Plan: may respond to gentle diuresis (3) Chronic kidney disease, stage 3 Is this a current diagnosis for this admission?: Yes Plan: stable (4) Hypertension Qualifiers: Hypertension type: essential hypertension Qualified Code(s): I10 - Essential (primary) hypertension Is this a current diagnosis for this admission?: Yes (5) Obesity hypoventilation syndrome Is this a current diagnosis for this admission?: Yes Plan: Thus far responding well to BiPAP
--- NOTE | 2017-10-04 22:44 | PDOC PROGRESS REPORT ---
Subjective Progress Note for:: 10/04/17 Subjective:: still short of breath Reason For Visit: ACUTE HYPOXEMIC RESPIRATORY FAILURE,BRONCHOIECTASI Physical Exam Vital Signs: Temp Pulse Resp BP Pulse Ox 97.5 F 50 L 16 145/62 H 94 10/04/17 17:47 10/04/17 17:47 10/04/17 17:47 10/04/17 17:47 10/04/17 17:47 Intake & Output 10/03/17 10/04/17 10/05/17 06:59 06:59 06:59 Intake Total 1441 1530 1056 Output Total 600 Balance 841 1530 1056 Weight 106 kg 108.2 kg General appearance: PRESENT: no acute distress, cooperative, disheveled, well- developed Head exam: PRESENT: atraumatic, normocephalic Eye exam: PRESENT: conjunctiva pale, EOMI. ABSENT: nystagmus, periorbital swelling, scleral icterus Mouth exam: PRESENT: dry mucosa, neck supple, tongue midline Neck exam: ABSENT: carotid bruit, JVD, lymphadenopathy, thyromegaly, tracheal deviation, tracheostomy Respiratory exam: PRESENT: decreased breath sounds, prolonged expiratory phas, rhonchi, symmetrical, unlabored, wheezes. ABSENT: clear to auscultation rafiq, crackles, rales, retraction, stridor, tachypnea Cardiovascular exam: PRESENT: RRR, +S1, +S2 Pulses: PRESENT: normal radial pulses GI/Abdominal exam: PRESENT: diminished bowel sounds, soft Extremities exam: ABSENT: calf tenderness, clubbing, joint swelling Musculoskeletal exam: ABSENT: deformity, dislocation Neurological exam: PRESENT: alert, awake Psychiatric exam: PRESENT: normal mood Skin exam: PRESENT: dry, warm Results Laboratory Results: 10/04/17 04:46 10/04/17 04:46 10/04/17 10/04/17 04:46 04:46 WBC 8.5 RBC 4.06 Hgb 14.2 Hct 42.3 MCV 104 H MCH 35.0 H MCHC 33.6 RDW 14.5 H Plt Count 184 Seg Neutrophils % 77.6 Lymphocytes % 13.8 Monocytes % 8.5 Eosinophils % 0.1 Basophils % 0.0 Absolute Neutrophils 6.6 Absolute Lymphocytes 1.2 Absolute Monocytes 0.7 Absolute Eosinophils 0.0 Absolute Basophils 0.0 Sodium 136.5 L Potassium 5.1 H Chloride 103 Carbon Dioxide 25 Anion Gap 9 BUN 65 H Creatinine 1.66 H Est GFR ( Amer) 37 L Est GFR (Non-Af Amer) 31 L Glucose 114 H Calcium 9.3 09/24/17 09/24/17 09/25/17 20:00 20:00 01:11 Creatine Kinase 35 34 CK-MB (CK-2) 0.58 Troponin I < 0.012 NT-Pro-B Natriuret Pep 09/25/17 09/25/17 09/25/17 01:11 06:50 06:50 Creatine Kinase 33 CK-MB (CK-2) 0.38 0.52 Troponin I < 0.012 < 0.012 NT-Pro-B Natriuret Pep 09/29/17 04:37 Creatine Kinase CK-MB (CK-2) Troponin I NT-Pro-B Natriuret Pep 384 Impressions: Chest/Abdomen CTA 09/24/17 15:07 IMPRESSION: 1. There is no evidence of pulmonary emboli. 2. Extensive chronic changes in the lungs as described. 3. Left-sided superior vena cava. Renal Ultrasound 09/25/17 00:00 IMPRESSION: Mildly limited exam. Grossly normal sonographic appearance of the kidneys. No evidence of hydronephrosis or urinary obstruction. Chest X-Ray 09/30/17 00:00 IMPRESSION: CHRONIC INTERSTITIAL CHANGES AND CHRONIC SCARRING IN THE LEFT UPPER LOBE AND APEX. NO SIGNIFICANT CHANGE. Lung Scan-VQ NM 09/30/17 12:57 IMPRESSION: LOW PROBABILITY FOR PULMONARY EMBOLISM. Assessment & Plan - Diagnosis (1) Acute respiratory failure with hypoxemia Is this a current diagnosis for this admission?: Yes Plan: she will need home O2 (2) Chronic interstitial lung disease Is this a current diagnosis for this admission?: Yes Plan: may respond to gentle diuresis (3) Chronic kidney disease, stage 3 Is this a current diagnosis for this admission?: Yes Plan: stable (4) Hypertension Qualifiers: Hypertension type: essential hypertension Qualified Code(s): I10 - Essential (primary) hypertension Is this a current diagnosis for this admission?: Yes (5) Obesity hypoventilation syndrome Is this a current diagnosis for this admission?: Yes Plan: may need bi-pap at dc
== END 2017-10-04 18:04 | disposition home or self-care (01) | DRG 189 ==
LOC: ER 14:18 → EH 17:55 → ICU 09-25 15:18 → 4S 09-26 18:50
PROVIDERS: ADMIT Family Medicine; ATTEND Family Medicine
PROC: 3E0234Z Introduction of Serum, Toxoid and Vaccine into Muscle, Percutaneous Approach (ICD-10-PCS; principal; 2017-10-04)
DX: J96.01 Acute respiratory failure with hypoxia (principal); E87.4 Mixed disorder of acid-base balance; I50.31 Acute diastolic (congestive) heart failure; J84.9 Interstitial pulmonary disease, unspecified; I13.0 Hypertensive heart and chronic kidney disease with heart failure and stage 1 through stage 4 chronic kidney disease, or unspecified chronic kidney disease; E66.2 Morbid (severe) obesity with alveolar hypoventilation; Z68.41 Body mass index [BMI] 40.0-44.9, adult; N18.3 Chronic kidney disease, stage 3 (moderate); I25.10 Atherosclerotic heart disease of native coronary artery without angina pectoris; E87.5 Hyperkalemia; E78.5 Hyperlipidemia, unspecified; I73.9 Peripheral vascular disease, unspecified; F17.210 Nicotine dependence, cigarettes, uncomplicated; I25.2 Old myocardial infarction; Z23 Encounter for immunization; Z79.82 Long term (current) use of aspirin; Z79.51 Long term (current) use of inhaled steroids; Z79.899 Other long term (current) drug therapy
CPT/HCPCS: 36415; 36600; 71045; 71046; 71275; 76775; 78582; 80048; 80053; 81001; 82550; 82553; 82607; 82803; 83036; 83735; 83880; 84100; 84439; 84443; 84484; 85025; 87040; 87077; 87086; 90686; 93005; 93010; 94640; 94761; 99291; A9540; A9567; J0610; J1650; J1815; J1940; J1956; J2920; J3490; J7030; J7512; Q9969

== ENCOUNTER 2017-11-01 15:47 | Observation (INO) | payer MEDICARE, MEDICAID ==
[2017-11-01] MEDS ORDERED: METHYLPREDNISOLONE INJ 125 MG/2 ML SDV IV ONE (16:23)
[2017-11-01 16:35] LABS: ABSOLUTE EOSINOPHILS # (AUTO) 0.1 10^3/uL (0.0-0.6); ABSOLUTE LYMPHOCYTES (AUTO) 1.4 10^3/uL (0.5-4.7); ABSOLUTE MONOCYTES (AUTO) 0.5 10^3/uL (0.1-1.4); ABSOLUTE NEUT (AUTO) 5.3 10^3/uL (1.7-8.2); BASOPHILS % (AUTO) 0.6 % (0-2); EOSINOPHILS % (AUTO) 0.9 % (0-6); HEMATOCRIT 47.5 % (36.0-47.0); HEMOGLOBIN 15.9 g/dL (12.0-15.5); LYMPHOCYTES % (AUTO) 18.6 % (13-45); MEAN CORPUSCULAR HEMOGLOBIN 34.4 pg (27.0-33.4); MEAN CORPUSCULAR HGB CONC 33.5 g/dL (32.0-36.0); MEAN CORPUSCULAR VOLUME 103 fl (80-97); MONOCYTES % (AUTO) 7.2 % (3-13); PLATELET COUNT 287 10^3/uL (150-450); RED BLOOD COUNT 4.63 10^6/uL (3.72-5.28); RED CELL DISTRIBUTION WIDTH 14.3 % (11.5-14.0); SEGMENTED NEUTROPHILS % (AUTO) 72.7 % (42-78); TOTAL CELLS COUNTED % (AUTO) 100 %; WHITE BLOOD COUNT 7.3 10^3/uL (4.0-10.5)
--- NOTE | 2017-11-01 16:55 | RADIOLOGY REPORT (SQ) ---
EXAM DESCRIPTION: CHEST 2 VIEWS COMPLETED DATE/TIME: 11/01/2017 4:43 pm REASON FOR STUDY: sob COMPARISON: CT angio chest 09/24/2017 CT chest without contrast 02/18/2017, 06/29/2014 Chest films 09/29/2017, 09/30/2017 EXAM PARAMETERS: NUMBER OF VIEWS: two views TECHNIQUE: Digital Frontal and Lateral radiographic views of the chest acquired. RADIATION DOSE: NA LIMITATIONS: none FINDINGS: LUNGS AND PLEURA: There is stable left apical pleural-parenchymal scarring, left perihilar pleural-parenchymal scarring, and partial collapse the right middle lobe compared to CT chest 09/25/19 18. The left apical and perihilar findings are unchanged since chest CT 2013. No fluffy alveolar infiltrates worrisome for edema or pneumonia. No pleural effusion. No pneumothor ax. MEDIASTINUM AND HILAR STRUCTURES: No masses or contour abnormalities. HEART AND VASCULAR STRUCTURES: Mild cardiomegaly. Prominent central pulmonary arteries. BONES: No acute findings. HARDWARE: None in the chest. OTHER: No other significant finding. IMPRESSION: Chronic appearing left apical and perihilar scarring. Density over the right lower lung represents a combination of prominent central pulmonary arteries an d chronic collapse, lateral segment right middle lobe. TECHNICAL DOCUMENTATION: JOB ID: [id number] [employer]- All Rights Reserved Reading location - IP/workstation name: [email or web address]
[2017-11-01 16:56] LABS: ANION GAP 11 (5-19); BLOOD UREA NITROGEN 19 mg/dL (7-20); CALCIUM 9.2 mg/dL (8.4-10.2); CARBON DIOXIDE 35 mmol/L (22-30); CHLORIDE 97 mmol/L (98-107); GLUCOSE 95 mg/dL (75-110); POTASSIUM 3.7 mmol/L (3.6-5.0); SODIUM 142.8 mmol/L (137-145)
[2017-11-01 17:07] LABS: TROPONIN I 0.026 ng/mL
[2017-11-01 17:44] LABS: VENOUS BLOOD BASE EXCESS -2.6 mmol/L; VENOUS BLOOD HCO3 21.8 mmol/L (20-32); VENOUS BLOOD PCO2 36.2 mmHg (35-63); VENOUS BLOOD PH 7.4 (7.30-7.42)
--- NOTE | 2017-11-01 18:02 | RADIOLOGY REPORT (SQ) ---
EXAM DESCRIPTION: CTA CHEST COMPLETED DATE/TIME: 11/01/2017 5:40 pm REASON FOR STUDY: SOB COMPARISON: Chest x-ray 11/01/2017 CTA of the chest 09/24/2017 CT chest 06/29/2014 TECHNIQUE: CT scan of the chest performed using helical scanning technique with dynamic intravenous contrast injection. Images reviewed with lung, soft tissue and bone windows. Reconstructed coronal and sagittal MPR images reviewed. Additional 3 dimensional post-processing performed to develop Maximal Intensity Projection images (CO P). All images stored on PACS. All CT scanners at this facility use dose modulation, iterative reconstruction, and/or weight based d osing when appropriate to reduce radiation dose to as low as reasonably achievable (ALARA). [facility]: Dose Right [facility]: CareDose [facility]: Dose Right [facility]: Teradose 4D [facility]: [employer] (Ge[employer]) CONTRAST TYPE AND DOSE: contrast/concentration: Isovue 300.00 mg/ml; Total Contrast Delivered: 96.9 ml; Total Saline Delivered: 60.0 ml Contrast bolus optimized for the pulmonary arteries. Not diagnostic for the aorta. RENAL FUNCTION: BUN 23 creatinine 1.6 RADIATION DOSE: CT Rad equipment meets quality standard of care and radiation dose reduction techniq ues were employed. CTDIvol: 35.2 - 49.6 mGy. DLP: 1304 mGy-cm. . LIMITATIONS: None. FINDINGS: LUNGS AND PLEURA: Pleural/parenchymal scarring in the left apex with elevation of the left hilum. Bronchiectasis in the left upper lobe. Stable right lower lobe pulmonary nodule. No acute pulmonary findings. AORTA AND GREAT VESSELS: No aneurysm. Contrast bolus not optimized for the aorta. Left superior [place] a cava. HEART: No pericardial effusion. No significant coronary artery calcifications. PULMONARY ARTERIES: No emboli visualized in the main pulmonary arteries or the segmental branches. HILAR AND MEDIASTINAL STRUCTURES: Left hilum is elevated. No masses or adenopathy. HARDWARE: None in the chest. UPPER ABDOMEN: No significant findings. Limited exam. THYROID AND OTHER SOFT TISSUES: No masses. No adenopathy. BONES: No acute or significant finding. 3D MIPS: Confirm above findings. OTHER: No other significant finding. IMPRESSION: 1. There is no evidence of pulmonary emboli. 2. Chronic pulmonary and vascular findings as described. COMMENT: Quality ID # [id number]: Final reports with documentation of one or more dose reduction techniques (e.g., Automated exposure control, adjustment of the mA and/or kV according to patient size, use of iterative reconstruction technique) TECHNICAL DOCUMENTATION: JOB ID: [id number] [employer]- All Rights Reserved Reading location - IP/workstation name: [email or web address]
[2017-11-01] MEDS ORDERED: FUROSEMIDE INJ/PF 40 MG/4 ML SDV IV ONE (18:53)
--- NOTE | 2017-11-01 21:17 | EKG REPORT ---
SEVERITY:- ABNORMAL ECG - SINUS RHYTHM LEFT BUNDLE BRANCH BLOCK : Confirmed by: Lynda Rossi 01-Nov-2017 21:17:30
--- NOTE | 2017-11-01 22:50 | ER Document Report ---
ED Respiratory Problem - General Chief Complaint: Shortness Of Breath Stated Complaint: DIFFICULTY BREATHING Time Seen by Provider: 11/01/17 15:58 Mode of Arrival: Ambulatory Information source: Patient TRAVEL OUTSIDE OF THE [place] IN LAST 30 DAYS: No - HPI Patient complains to provider of: Short of breath Onset: This morning Duration: Continuous Initiating Event: Exertion Quality of pain: No pain Severity: Moderate Short of Breath: Moderate Associated symptoms: None Similar symptoms previously: Yes Recently seen / treated by doctor: Yes Notes: Patient is a 71-year-old female who was sent to the emergency room by pulmonology in the office as an outpatient today, for hypoxia with a pulse ox of 58-68% in the office on room air, as well as peripheral cyanosis, patient did arrive to the emergency room with noted hypoxia, as well as peripheral cyanosis, however she denies any complaints, no chest pain, she denies feeling short of breath, she denies any cough, cold or congestion, review of patient's previous chart reveals that she has underlying congestive heart failure as well as COPD and she was admitted on 09/24/17 for similar complaints - Related Data Allergies/Adverse Reactions: Sulfa (Sulfonamide Antibiotics) Allergy (Verified 05/26/16 11:36) Past Medical History - General Information source: Patient - Social History Smoking Status: Never Smoker Chew tobacco use (# tins/day): No Frequency of alcohol use: None Drug Abuse: None Family History: Hypertension Patient has suicidal ideation: No Patient has homicidal ideation: No - Past Medical History Cardiac Medical History: Reports: Hx Congestive Heart Failure, Hx Coronary Artery Disease, Hx Heart Attack, Hx Hypercholesterolemia, Hx Hypertension, Hx Peripheral Vascular Disease Pulmonary Medical History: Denies: Hx Tuberculosis Renal/ Medical History: Reports: Hx Renal Insufficiency. Denies: Hx Peritoneal Dialysis GI Medical History: Denies: Hx Cirrhosis, Hx Crohn's Disease, Hx Hepatitis, Hx Ulcerative Colitis Musculoskeltal Medical History: Reports Hx Arthritis, Denies Hx Gout Psychiatric Medical History: Denies: Hx Bipolar Disorder, Hx Dementia, Hx Schizoaffective Disorder Traumatic Medical History: Denies: Hx Traumatic Brain Injury Infectious Medical History: Denies: Hx Hepatitis Past Surgical History: Reports: Hx Tonsillectomy - Immunizations Hx Diphtheria, Pertussis, Tetanus Vaccination: Yes - 2014 Hx Pneumococcal Vaccination: 03/26/13 Review of Systems - Review of Systems Constitutional: No symptoms reported EENT: No symptoms reported Cardiovascular: No symptoms reported Respiratory: See HPI Gastrointestinal: No symptoms reported Genitourinary: No symptoms reported Female Genitourinary: No symptoms reported Musculoskeletal: No symptoms reported Skin: No symptoms reported Hematologic/Lymphatic: No symptoms reported Neurological/Psychological: No symptoms reported -: Yes All other systems reviewed and negative Physical Exam - Vital signs Vitals: Resp Pulse Ox 17 84 L 11/01/17 15:51 11/01/17 15:51 Interpretation: Hypoxic - General General appearance: Appears well, Alert In distress: None - HEENT Head: Normocephalic, Atraumatic Eyes: Normal Pupils: PERRL - Respiratory Respiratory status: No respiratory distress Chest status: Nontender Breath sounds: Normal Chest palpation: Normal - Cardiovascular Rhythm: Regular Heart sounds: Normal auscultation Murmur: No - Abdominal Inspection: Normal Distension: No distension Bowel sounds: Normal Tenderness: Nontender Organomegaly: No organomegaly - Back Back: Normal, Nontender - Extremities General upper extremity: Normal inspection, Nontender, Normal color, Normal ROM , Normal temperature General lower extremity: Normal inspection, Nontender, Edema, Normal color, Normal ROM, Normal temperature. No: Violette's sign - Neurological Neuro grossly intact: Yes Cognition: Normal Orientation: AAOx4 [place] Coma Scale Eye Opening: Spontaneous [place] Coma Scale Verbal: Oriented [place] Coma Scale Motor: Obeys Commands [place] Coma Scale Total: 15 Speech: Normal Motor strength normal: LUE, RUE, LLE, RLE Sensory: Normal - Psychological Associated symptoms: Normal affect, Normal mood - Skin Skin Temperature: Warm Skin Moisture: Dry Skin Color: Normal, Cyanotic - Peripheral, fingertips Course - Re-evaluation Re-evalutation: 11/01/17 22:50 Patient was discussed with primary care provider, Dr. Millan, who states he recently saw the patient in the office and recommended follow-up with Dr. Salinas today, apparently there is a concern for severe pulmonary hypertension, she was seen and evaluated in this hospital on September 24 - October 04 for similar complaints and Dr. Millan feels as though we have exhausted all resources at this facility, that patient needs an evaluation by a pulmonary hypertension specialist and possible right heart cath if deemed necessary, recommends patient be transferred to [facility] Patient was discussed with [facility] and accepted by Dr. Gill, however they do not currently have any beds, they will place patient on a wait list and notify us when a bed becomes available 11/01/17 22:51 Notified by [facility] that a bed will not be available until sometime tomorrow, therefore patient was discussed with primary care who agrees to admit here to the [facility] until a bed becomes available at a tertiary care center - Vital Signs Vital signs: Temp Pulse Resp BP Pulse Ox 97.4 F 24 H 157/92 H 87 L 11/01/17 16:22 11/01/17 22:00 11/01/17 17:01 11/01/17 22:00 - Laboratory Result Diagrams: 11/01/17 16:05 11/01/17 16:05 Laboratory results interpreted by me: 11/01/17 11/01/17 11/01/17 16:05 16:05 16:05 Hgb 15.9 H Hct 47.5 H MCV 103 H MCH 34.4 H RDW 14.3 H Chloride 97 L Carbon Dioxide 35 H Creatinine 1.73 H Est GFR ( Amer) 35 L Est GFR (Non-Af Amer) 29 L NT-Pro-B Natriuret Pep 5000 H - Diagnostic Test Radiology reviewed: Image reviewed, Reports reviewed Critical Care Note - Critical Care Note Total time excluding time spent on procedures (mins): 60 Comments: Patient with hypoxia and cyanosis, requiring close observation, multiple reevaluation, discussion with primary care provider and transferred to tertiary care center Discharge - Discharge Clinical Impression: Hypoxia, Pulmonary hypertension Condition: Serious Disposition: ADMITTED INPATIENT Admitting Provider: Millan Unit Admitted: [facility]
[2017-11-02] MEDS ORDERED: ALBUTEROL SULFATE HFA (90 MCG/PUFF) 8 GM MDI (1 MDI/ER DISP) IH PRN (02:27)
[2017-11-02] MEDS ORDERED: NITROGLYCERIN 0.4 MG/TAB 25 TAB/BOTTLE SL PRN (02:27)
[2017-11-02] MEDS ORDERED: ONDANSETRON 4 MG TAB.RAPDIS PO PRN (02:45)
[2017-11-02] MEDS ORDERED: LEVOTHYROXINE SODIUM 0.025 MG TABLET PO SCH (06:00)
[2017-11-02] MEDS: HYDRALAZINE HCL 25 MG TABLET PO SCH ×2 (06:08→14:15)
[2017-11-02 09:14] LABS: HEMATOCRIT 45.9 % (36.0-47.0); HEMOGLOBIN 15.3 g/dL (12.0-15.5); MEAN CORPUSCULAR HEMOGLOBIN 34.2 pg (27.0-33.4); MEAN CORPUSCULAR HGB CONC 33.3 g/dL (32.0-36.0); MEAN CORPUSCULAR VOLUME 103 fl (80-97); PLATELET COUNT 292 10^3/uL (150-450); RED BLOOD COUNT 4.47 10^6/uL (3.72-5.28); RED CELL DISTRIBUTION WIDTH 14.3 % (11.5-14.0); WHITE BLOOD COUNT 4.3 10^3/uL (4.0-10.5)
[2017-11-02 09:46] LABS: ANION GAP 18 (5-19); BLOOD UREA NITROGEN 31 mg/dL (7-20); CALCIUM 8.5 mg/dL (8.4-10.2); CARBON DIOXIDE 27 mmol/L (22-30); CHLORIDE 97 mmol/L (98-107); GLUCOSE 130 mg/dL (75-110); SODIUM 141.9 mmol/L (137-145)
[2017-11-02 09:54] LABS: POTASSIUM 4.8 mmol/L (3.6-5.0)
[2017-11-02] MEDS ORDERED: PREDNISONE 20 MG TABLET PO SCH (10:00)
[2017-11-02] MEDS ORDERED: ASPIRIN 81 MG TABLET, ENT COATED PO SCH (10:00)
[2017-11-02] MEDS ORDERED: FLUTICASONE NASAL SPRAY 50 MCG/SPRY 120 SPRAY/16 GM NASL SCH (10:00)
[2017-11-02] MEDS ORDERED: FUROSEMIDE 40 MG TABLET PO SCH (10:00)
[2017-11-02] MEDS ORDERED: OMEGA-3 ACID ETHYL ESTERS 1 GM CAPSULE PO SCH (10:00)
[2017-11-02] MEDS ORDERED: CARVEDILOL 6.25 MG TABLET PO SCH (10:00)
--- NOTE | 2017-11-02 11:21 | PDOC H&P ---
History of Present Illness Admission Date/PCP: 11/01/17 23:17 MAGDI REYES MD Patient complains of: Hypoxia and shortness of the breath History of Present Illness: NELI BAEZ is a 71 year old female This is a 71-year-old female with a significant problem of the hypoxia currently requiring 6 L oxygens while patients move and history of the chronic kidney disease and the diastolic congestive heart failure with a severe pulmonary hypertension's with extensive workup done including the CT angiogram and a VQ scan and echocardiogram within the last 2 weeksWas all stable end patients went to see a Dr. Salinas in office patient's O2 sats dropped below 70 while the patient's walk and patient was directed to the emergency department where patient was CT angiogram and other blood work was done was all stable As per discussed with the Dr. Salinas pulmonary and cardiology patients probably due to symptoms underlying severe pulmonary hypertension's and need a right-sided cardiac cath and further evaluations and nothing they can offer here in need to transfer the tertiary center and ER physicians call the tertiary center and patient's currently on a waiting list and ER physician wants to admit him to the patient was transferred When I saw the patient's currently denied any chest pain denied any shortness of the breath while resting denied any nausea no vomiting Past Medical History Cardiac Medical History: Reports: Congestive Heart Failure, Coronary Artery Disease, Myocardial Infarction, Hyperlipidema, Hypertension, Peripheral Vascular Disease Pulmonary Medical History: Reports: Chronic Obstructive Pulmonary Disease (COPD) Denies: Tuberculosis Renal/ Medical History: Reports: Chronic Kidney Disease GI Medical History: Reports: Gastroesophageal Reflux Disease Denies: Cirrhosis, Crohn's Disease, Hepatitis, Ulcerative Colitis Musculoskeltal Medical History: Reports: Arthritis Denies: Gout Psychiatric Medical History: Denies: Bipolar Disorder, Dementia, Schizoaffective Disorder Traumatic Medical History: Denies: Traumatic Brain Injury Hematology: Denies: Sickle Cell Disease Past Surgical History Past Surgical History: Reports: Tonsillectomy Social History Smoking Status: Former Smoker Number of Years Smokin Last Time Smoked: 2012 Frequency of Alcohol Use: Occasional Hx Recreational Drug Use: No Hx Prescription Drug Abuse: No Family History Family History: Reviewed & Not Pertinent, Hypertension Parental Family History Reviewed: Yes Children Family History Reviewed: Yes Sibling(s) Family History Reviewed.: Yes Medication/Allergy Home Medications: Albuterol Sulfate [Ventolin HFA MDI 18 GM] 2 puff IH Q4HP PRN 09/24/17 Aspirin [Ecotrin 81 mg EC Tablet] 81 mg PO DAILY 09/24/17 Carvedilol [Coreg 6.25 mg Tablet] 12.5 mg PO Q12 09/24/17 Fluticasone Propionate [Flonase Nasal [place] 50 Mcg/[place] 16 gm] 1 spray NASL DAILY 09/24/17 Furosemide [Lasix 40 mg Tablet] 40 mg PO DAILY 09/24/17 Hydralazine HCl [Apresoline 25 mg Tablet] 25 mg PO Q8 09/24/17 Levocetirizine Dihydrochloride [Xyzal] 5 mg PO QPM 09/24/17 Levothyroxine Sodium [Synthroid 0.025 mg Tablet] 0.025 mg PO Q6AM 09/24/17 Nitroglycerin [Nitrostat] 0.4 mg SL Q5MP PRN 09/24/17 [place]-3 Fatty Acids/Fish Oil [Fish Oil 1,000 mg Capsule] 1 cap PO DAILY Ondansetron HCl [Zofran 4 mg Tablet] 4 mg PO Q12HP PRN 09/24/17 Prednisone [Deltasone 20 mg Tablet] 10 mg PO DAILY #10 tablet 10/04/17 Allergies/Adverse Reactions: Sulfa (Sulfonamide Antibiotics) Allergy (Verified 05/26/16 11:36) Review of Systems Constitutional: ABSENT: chills, fever(s), headache(s), weight gain, weight loss Eyes: ABSENT: visual disturbances Ears: ABSENT: hearing changes Cardiovascular: PRESENT: dyspnea on exertion. ABSENT: chest pain, edema, orthropnea, palpitations Respiratory: ABSENT: cough, hemoptysis Gastrointestinal: ABSENT: abdominal pain, constipation, diarrhea, hematemesis, hematochezia, nausea, vomiting Genitourinary: ABSENT: dysuria, hematuria Musculoskeletal: ABSENT: joint swelling Integumentary: ABSENT: rash, wounds Neurological: ABSENT: abnormal gait, abnormal speech, confusion, dizziness, focal weakness, syncope Psychiatric: ABSENT: anxiety, depression, homidical ideation, suicidal ideation Endocrine: ABSENT: cold intolerance, heat intolerance, menstrual abnormalities, polydipsia, polyuria Hematologic/Lymphatic: ABSENT: easy bleeding, easy bruising, lymphadenopathy Physical Exam Vital Signs: Temp Pulse Resp BP Pulse Ox 98 F 86 12 167/89 H 91 L 04/17/18 04:15 11/02/17 07:00 11/02/17 04:15 11/02/17 04:15 11/02/17 04:15 Intake & Output 11/01/17 11/02/17 11/03/17 06:59 06:59 06:59 Intake Total 8 Balance 8 Weight 105.4 kg General appearance: PRESENT: no acute distress, well-developed, well-nourished Head exam: PRESENT: atraumatic, normocephalic Eye exam: PRESENT: conjunctiva pink, EOMI, PERRLA. ABSENT: scleral icterus Ear exam: PRESENT: normal external ear exam Mouth exam: PRESENT: moist, tongue midline Neck exam: PRESENT: full ROM. ABSENT: carotid bruit, JVD, lymphadenopathy, thyromegaly Respiratory exam: PRESENT: clear to auscultation rafiq Cardiovascular exam: PRESENT: RRR. ABSENT: diastolic murmur, rubs, systolic murmur Pulses: PRESENT: normal dorsalis pedis pul, +2 pedal pulses bilateral Vascular exam: PRESENT: normal capillary refill GI/Abdominal exam: PRESENT: normal bowel sounds, soft. ABSENT: distended, guarding, mass, organolmegaly, rebound, tenderness Rectal exam: PRESENT: deferred Extremities exam: PRESENT: pedal edema Musculoskeletal exam: PRESENT: ambulatory Neurological exam: PRESENT: alert, awake, oriented to person, oriented to place , oriented to time, oriented to situation, CN II-XII grossly intact. ABSENT: motor sensory deficit Psychiatric exam: PRESENT: appropriate affect, normal mood. ABSENT: homicidal ideation, suicidal ideation Skin exam: PRESENT: dry, intact, warm. ABSENT: cyanosis, rash Results Laboratory Results: 11/02/17 08:55 11/02/17 08:55 11/02/17 11/02/17 08:55 08:55 WBC 4.3 RBC 4.47 Hgb 15.3 Hct 45.9 MCV 103 H MCH 34.2 H MCHC 33.3 RDW 14.3 H Plt Count 292 Sodium 141.9 Potassium 4.8 D Chloride 97 L Carbon Dioxide 27 Anion Gap 18 BUN 31 H Creatinine 1.80 H Est GFR ( Amer) 34 L Est GFR (Non-Af Amer) 28 L Glucose 130 H Calcium 8.5 Impressions: Chest X-Ray 11/01/17 16:16 IMPRESSION: Chronic appearing left apical and perihilar scarring. Density over the right lower lung represents a combination of prominent central pulmonary arteries and chronic collapse, lateral segment right middle lobe. Chest/Abdomen CTA 11/01/17 16:22 IMPRESSION: 1. There is no evidence of pulmonary emboli. 2. Chronic pulmonary and vascular findings as described. Assessment & Plan - Diagnosis (1) Hypoxia Is this a current diagnosis for this admission?: Yes Plan: At this point patient is waiting to transfer to a tertiary center for further evaluations (2) Pulmonary hypertension Is this a current diagnosis for this admission?: Yes Plan: We will wait for the transfer to the tertiary center for further evaluations (3) CAD (coronary artery disease) Qualifiers: Coronary Disease-Associated Artery/Lesion type: unspecified vessel or lesion type Is this a current diagnosis for this admission?: Yes Plan: Currently all stable continues to monitor consult the cardiology while patient is here (4) Chronic interstitial lung disease Is this a current diagnosis for this admission?: Yes Plan: Will continues follow with Dr. Salinas (5) Chronic kidney disease, stage 3 Is this a current diagnosis for this admission?: Yes Plan: Patient's currently see outpatients Dr. Cui and baseline creatinine is 1.8 (6) Congestive heart failure Qualifiers: Heart failure type: diastolic Heart failure chronicity: chronic Qualified Code(s): I50.32 - Chronic diastolic (congestive) heart failure Is this a current diagnosis for this admission?: Yes Plan: Continues to Lasix (7) Hypertension Qualifiers: Hypertension type: essential hypertension Is this a current diagnosis for this admission?: Yes Plan: Currently all stable (8) Hypothyroid Qualifiers: Hypothyroidism type: unspecified Qualified Code(s): E03.9 - Hypothyroidism , unspecified Is this a current diagnosis for this admission?: Yes - Time Time Spent: 30 to 50 Minutes Medications reviewed and adjusted accordingly: Yes Anticipated discharge: Tertiary Hospital Within: when bed available - Inpatient Certification Medical Necessity: Need Close Monitoring Due to Risk of Patient Decompensation Post Hospital Care: D/C [employer] Documentation - Plan Summary Plan Summary: Discussed with the patient about all plan and coordinate care with the cardiology and pulmonary
--- NOTE | 2017-11-02 11:24 | PDOC TRANSFER SUMMARY ---
General Admission Date/PCP: 11/01/17 23:17 MAGDI REYES MD Transfer Date: 11/02/17 Accepting Facility: [facility] Resuscitation Status: Full Code - Transfer Diagnosis (1) Hypoxia Is this a current diagnosis for this admission?: Yes (2) Pulmonary hypertension Is this a current diagnosis for this admission?: Yes (3) CAD (coronary artery disease) Is this a current diagnosis for this admission?: Yes (4) Chronic interstitial lung disease Is this a current diagnosis for this admission?: Yes (5) Chronic kidney disease, stage 3 Is this a current diagnosis for this admission?: Yes (6) Congestive heart failure Is this a current diagnosis for this admission?: Yes (7) Hypertension Is this a current diagnosis for this admission?: Yes (8) Hypothyroid Is this a current diagnosis for this admission?: Yes - Transfer Medications Home Medications: Albuterol Sulfate [Ventolin HFA MDI 18 GM] 2 puff IH Q4HP PRN 09/24/17 Aspirin [Ecotrin 81 mg EC Tablet] 81 mg PO DAILY 09/24/17 Carvedilol [Coreg 6.25 mg Tablet] 12.5 mg PO Q12 09/24/17 Fluticasone Propionate [Flonase Nasal [place] 50 Mcg/[place] 16 gm] 1 spray NASL DAILY 09/24/17 Furosemide [Lasix 40 mg Tablet] 40 mg PO DAILY 09/24/17 Hydralazine HCl [Apresoline 25 mg Tablet] 25 mg PO Q8 09/24/17 Levocetirizine Dihydrochloride [Xyzal] 5 mg PO QPM 09/24/17 Levothyroxine Sodium [Synthroid 0.025 mg Tablet] 0.025 mg PO Q6AM 09/24/17 Nitroglycerin [Nitrostat] 0.4 mg SL Q5MP PRN 09/24/17 [place]-3 Fatty Acids/Fish Oil [Fish Oil 1,000 mg Capsule] 1 cap PO DAILY Ondansetron HCl [Zofran 4 mg Tablet] 4 mg PO Q12HP PRN 09/24/17 Transfer Medications: Current Medications Albuterol (Ventolin Hfa 8 Gm Mdi (1 Mdi/Er Disp)) 2 puff IH Q4HP PRN PRN Reason: FOR SHORTNESS OF BREATH Stop: 12/02/17 02:26 Aspirin (Ecotrin 81 Mg Ec Tablet) 81 mg PO DAILY [facility] Stop: 12/02/17 09:59 Last Admin: 11/02/17 10:03 Dose: 81 mg Carvedilol (Coreg 6.25 Mg Tablet) 12.5 mg PO Q12 SAM Stop: 12/02/17 09:59 Last Admin: 11/02/17 10:07 Dose: Not Given Cetirizine HCl (Zyrtec 5 Mg Tablet) 5 mg PO QPM SAM Stop: 12/02/17 17:59 Fluticasone Propionate (Flonase Nasal [place] 50 Mcg/[place] 16 Gm) 1 spray NASL DAILY SAM Stop: 12/02/17 09:59 Last Admin: 11/02/17 10:07 Dose: 1 spray Furosemide (Lasix 40 Mg Tablet) 40 mg PO DAILY SAM Stop: 12/02/17 09:59 Last Admin: 11/02/17 10:05 Dose: 40 mg Hydralazine HCl (Apresoline 25 Mg Tablet) 25 mg PO Q8 SAM Stop: 12/02/17 05:59 Last Admin: 11/02/17 06:08 Dose: 25 mg Levothyroxine Sodium (Synthroid 0.025 Mg Tablet) 0.025 mg PO Q6AM SAM Stop: 12/02/17 05:59 Last Admin: 11/02/17 06:08 Dose: 0.025 mg Nitroglycerin (Nitrostat 0.4 Mg (1/150 Gr) Tabs 25/Bottle) 1 tab SL Q5MP PRN PRN Reason: FOR CHEST PAIN Stop: 12/02/17 02:26 Ojqin-6-Ysyo Ethyl Esters (Lovaza 1 Gm Capsule) 1 gm PO DAILY SAM Stop: 12/02/17 09:59 Last Admin: 11/02/17 10:05 Dose: 1 gm Ondansetron HCl (Zofran Odt 4 Mg Tablet) 4 mg PO Q12HP PRN PRN Reason: FOR NAUSEA/VOMITING Stop: 12/02/17 02:44 Prednisone (Deltasone 20 Mg Tablet) 10 mg PO DAILY [facility] Stop: 12/02/17 09:59 Last Admin: 11/02/17 10:06 Dose: 10 mg Thiamine HCl (Thiamine 100 Mg Tablet) 100 mg PO NOON [facility] Stop: 12/02/17 11:59 - Allergies Allergies/Adverse Reactions: Sulfa (Sulfonamide Antibiotics) Allergy (Verified 05/26/16 11:36) Hospital Course Hospital Course: This 71-year-old female present in the ER from Dr. Salinas office because of the ongoing hope hypoxia especially patients movingPatient had very extensive workup done 2 weeks back including the CT angiogram VQ scan and echocardiograms pretty much all stable except the patient's severe pulmonary hypertension's As per discussed with the cardiology and pulmonary patient is to go to the tertiary center for further evaluation for the severe pulmonary hypertension's and underlying ongoing hypoxia and patient is already transferred to the [place] but waiting for the bed at this point's Is currently otherwise stable Physical Exam Vital Signs: Temp Pulse Resp BP Pulse Ox 97.2 F 85 16 145/91 H 92 11/02/17 08:00 11/02/17 08:00 11/02/17 08:00 11/02/17 08:00 11/02/17 08:00 Intake & Output 11/01/17 11/02/17 11/03/17 06:59 06:59 06:59 Intake Total 8 Balance 8 Weight 105.4 kg General appearance: PRESENT: no acute distress, well-developed, well-nourished Head exam: PRESENT: atraumatic, normocephalic Eye exam: PRESENT: conjunctiva pink, EOMI, PERRLA. ABSENT: scleral icterus Ear exam: PRESENT: normal external ear exam Mouth exam: PRESENT: moist, tongue midline Neck exam: ABSENT: carotid bruit, JVD, lymphadenopathy, thyromegaly Respiratory exam: PRESENT: clear to auscultation rafiq. ABSENT: rales, rhonchi, wheezes Cardiovascular exam: PRESENT: RRR. ABSENT: diastolic murmur, rubs, systolic murmur Pulses: PRESENT: normal dorsalis pedis pul Vascular exam: PRESENT: normal capillary refill GI/Abdominal exam: PRESENT: normal bowel sounds, soft. ABSENT: distended, guarding, mass, organolmegaly, rebound, tenderness Rectal exam: PRESENT: deferred Extremities exam: PRESENT: full ROM. ABSENT: calf tenderness, clubbing, pedal edema Neurological exam: PRESENT: alert, awake, oriented to person, oriented to place , oriented to time, oriented to situation, CN II-XII grossly intact. ABSENT: motor sensory deficit Psychiatric exam: PRESENT: appropriate affect, normal mood. ABSENT: homicidal ideation, suicidal ideation Skin exam: PRESENT: dry, intact, warm. ABSENT: cyanosis, rash Results Laboratory Results: 11/02/17 08:55 11/02/17 08:55 11/02/17 11/02/17 08:55 08:55 WBC 4.3 RBC 4.47 Hgb 15.3 Hct 45.9 MCV 103 H MCH 34.2 H MCHC 33.3 RDW 14.3 H Plt Count 292 Sodium 141.9 Potassium 4.8 D Chloride 97 L Carbon Dioxide 27 Anion Gap 18 BUN 31 H Creatinine 1.80 H Est GFR ( Amer) 34 L Est GFR (Non-Af Amer) 28 L Glucose 130 H Calcium 8.5 Impressions: Chest X-Ray 11/01/17 16:16 IMPRESSION: Chronic appearing left apical and perihilar scarring. Density over the right lower lung represents a combination of prominent central pulmonary arteries and chronic collapse, lateral segment right middle lobe. Chest/Abdomen CTA 11/01/17 16:22 IMPRESSION: 1. There is no evidence of pulmonary emboli. 2. Chronic pulmonary and vascular findings as described. Plan Time Spent: Greater than 30 Minutes - Continues to current medications
[2017-11-02] MEDS ORDERED: THIAMINE HCL 100 MG TABLET PO SCH (12:00)
[2017-11-02 12:01] LABS: ARTERIAL BLOOD BASE EXCESS 2.1 mmol/L; ARTERIAL BLOOD H2CO3 1.16 mmol/L (1.05-1.35); ARTERIAL BLOOD HCO3 26.1 mmol/L (20-26); ARTERIAL BLOOD O2 SATURATION 89.8 % (94-98); ARTERIAL BLOOD PCO2 38.7 mmHg (35-45); ARTERIAL BLOOD PH 7.45 (7.35-7.45); ARTERIAL BLOOD PO2 54.7 mmHg (80-100); ARTERIAL BLOOD TOTAL CO2 27.2 mmol/L (21-25)
[2017-11-02 12:03] LABS: ARTERIAL BLOOD FIO2 3L
[2017-11-02 17:03] VITALS: BP 148/70
[2017-11-02] MEDS ORDERED: CETIRIZINE 5 MG TABLET PO SCH (18:00)
--- NOTE | 2017-11-02 20:02 | PDOC CONSULTATION ---
Consultation Consult Date: 11/02/17 Attending physician:: MAGDI MILLAN Consult reason:: Shortness of breath, low oxygen History of Present Illness Admission Date/PCP: 11/01/17 23:17 MAGDI MILLAN MD Patient complains of: Shortness of breath History of Present Illness: NELI BAEZ is a 71 year old female with a significant problem of the hypoxia currently requiring 6 L oxygens while patients move and history of the chronic kidney disease and the diastolic congestive heart failure with a severe pulmonary hypertension's with extensive workup done including the CT angiogram and a VQ scan and echocardiogram within the last 2 weeksWas all stable end patients went to see a Dr. Salinas in office patient's O2 sats dropped below 70 while the patient's walk and patient was directed to the emergency department where patient was CT angiogram and other blood work was done was all stable As per discussed with the Dr. Salinas pulmonary and cardiology patients probably due to symptoms underlying severe pulmonary hypertension's and need a right-sided cardiac cath and further evaluations and nothing they can offer here in need to transfer the tertiary center and ER physicians call the tertiary center and patient's currently on a waiting list and ER physician wants to admit him to the patient was transferred When I saw the patient's currently denied any chest pain denied any shortness of the breath while resting denied any nausea no vomiting. This history obtained by Dr. Millan was reviewed and confirmed. On repeated questioning patient denied any chest pain. She denied any problems with her mentation. She denied any syncope or near syncope. Patient has intermittent chronic pedal edema. Patient has history of thickened hypoxemia with significant AA gradient. Patient would definitely benefit from right heart catheterization and evaluation for cause of pulmonary hypertension. Patient previous echocardiogram and previous cardiac evaluations were reviewed with the patient. Past Medical History Cardiac Medical History: Reports: Congestive Heart Failure, Coronary Artery Disease, Myocardial Infarction, Hyperlipidema, Hypertension, Peripheral Vascular Disease Pulmonary Medical History: Reports: Chronic Obstructive Pulmonary Disease (COPD) Denies: Tuberculosis Renal/ Medical History: Reports: Chronic Kidney Disease GI Medical History: Reports: Gastroesophageal Reflux Disease Denies: Cirrhosis, Crohn's Disease, Hepatitis, Ulcerative Colitis Musculoskeltal Medical History: Reports: Arthritis Denies: Gout Psychiatric Medical History: Denies: Bipolar Disorder, Dementia, Schizoaffective Disorder Traumatic Medical History: Denies: Traumatic Brain Injury Hematology: Denies: Sickle Cell Disease Past Surgical History Past Surgical History: Reports: Tonsillectomy Social History Information Source: Patient Smoking Status: Former Smoker Number of Years Smokin Last Time Smoked: 2012 Frequency of Alcohol Use: Occasional Hx Recreational Drug Use: No Hx Prescription Drug Abuse: No - Advance Directive Resuscitation Status: Full Code Surrogate healthcare decision maker:: Patient's daughter is the surrogate decision-maker Family History Family History: Hypertension Parental Family History Reviewed: Yes Children Family History Reviewed: Yes Sibling(s) Family History Reviewed.: Yes Medication/Allergy Home Medications: Albuterol Sulfate [Ventolin HFA MDI 18 GM] 2 puff IH Q4HP PRN 11/02/17 Cyclobenzaprine HCl [Flexeril 5 mg Tablet] 5 mg PO HSP PRN 11/02/17 Fluticasone Propionate [Flonase Nasal [place] 50 Mcg/[place] 16 gm] 1 spray NASL DAILY 11/02/17 Hydralazine HCl [Apresoline 25 mg Tablet] 25 mg PO Q8 11/02/17 Levocetirizine Dihydrochloride [Xyzal] 5 mg PO QPM 11/02/17 Levothyroxine Sodium [Synthroid 0.025 mg Tablet] 0.025 mg PO Q6AM 11/02/17 Ondansetron HCl [Zofran 4 mg Tablet] 4 mg PO Q12HP PRN 11/02/17 Tramadol HCl [Ultram 50 mg Tablet] 50 mg PO Q12HP PRN 11/02/17 Allergies/Adverse Reactions: Sulfa (Sulfonamide Antibiotics) Allergy (Verified 05/26/16 11:36) Review of Systems Review of Systems: Please see history of present illness and past medical history as wall. Constitutional: No fever or chills reported. Head : No recent chronic headaches, recent head injury. Eyes: No recent eye pain, diplopia, redness, discharge, acute visual changes. Ears: No recent chronic ear pain, acute hearing loss, ear discharge. Oral cavity: No recent ulcerations, bleeding, oral cavity discomfort. Neck: No recent acute neck pain reported. Hematologic: No recent easy bruising or bleeding or hematologic malignancy reported. Lymphatic: No recent lymphatic malignancy, chronic lymphadenopathy reported yet Cardiovascular system review: See history of present illness. No chest pain no sustained palpitations, syncope, near syncope. Respiratory system review: No recent chronic cough, hemoptysis, blood clots in the lungs reported. Shortness of breath on exertion Gastrointestinal system review: Negative for any recent acute or chronic abdominal pain, hematemesis, melena, recent change in bowel habits. Genitourinary system review: No recent acute or chronic hematuria, flank pain, UTI etc. reported. Skin system review: Negative for any recent abnormal bruising, no rash, no pruritus reported. Neurologic: No prior history of strokes, mini strokes, seizure disorder. Psychologic: No history of major psychosis or major depression reported. Musculoskeletal: Minor aches and pains reported. No acute joint swelling reported. Endocrine: No recent polyuria, polydipsia, recent heat or cold intolerance. Physical Exam Vital Signs: Temp Pulse Resp BP Pulse Ox 97.4 F 91 22 H 148/70 H 95 11/02/17 16:04 11/02/17 16:04 11/02/17 16:04 11/02/17 16:04 11/02/17 16:04 Intake & Output 11/01/17 11/02/17 11/03/17 06:59 06:59 06:59 Intake Total 8 Balance 8 Weight 105.4 kg Exam: GENERAL: well-nourished and in no acute distress. Alert and oriented x3 HEAD: Atraumatic, normocephalic. EYES: Pupils equal round and reactive to light, extraocular movements intact, sclera anicteric, conjunctiva are normal. ENT: TMs normal, nares patent, oropharynx clear without exudates. Moist mucous membranes. No oral ulcerations or bleeding gums noted NECK: supple without lymphadenopathy. Trachea is central. No cervical or axillary lymphadenopathy noted. Carotids are 2+, JVD WNL LUNGS: Respiration seems nonlabored, no significant accessory muscle action noted. Breath sounds clear to auscultation bilaterally and equal noted. No wheezes rales or rhonchi noted. No significant dullness noted on percussion. CHEST: Palpation of the chest wall shows no significant chest wall tenderness. No other significant abnormalities noted. HEART: [facility], No PSH, 1/6 RADHA aortic area, 1/6 nance systolic murmur mitral area, no rubs, no gallops. ABDOMEN: Soft, no significant tenderness appreciated, normoactive bowel sounds. No guarding, no rebound. No rigidity noted . No masses appreciated. EXTREMITIES: Pedal pulses are 1-2+, no calf tenderness noted. No clubbing or cyanosis. Trace to 1+ pedal edema noted NEUROLOGICAL: Focused neurological exam showed no significant neurologic deficit. Normal speech, no focal weakness appreciated. PSYCH: Normal mood, normal affect. Judgment and insight within normal limits. SKIN: No significant ecchymosis, skin is noted to be warm. MUSCULOSKELETAL EXAM: No significant acute joint swelling noted. Results Laboratory Results: 11/02/17 08:55 11/02/17 08:55 11/02/17 11/02/17 11/02/17 08:55 08:55 11:45 WBC 4.3 RBC 4.47 Hgb 15.3 Hct 45.9 MCV 103 H MCH 34.2 H MCHC 33.3 RDW 14.3 H Plt Count 292 Carbonic Acid 1.16 HCO3/H2CO3 Ratio 22:1 ABG pH 7.45 ABG pCO2 38.7 ABG pO2 54.7 L ABG HCO3 26.1 H ABG O2 Saturation 89.8 L ABG Base Excess 2.1 FiO2 3L Sodium 141.9 Potassium 4.8 D Chloride 97 L Carbon Dioxide 27 Anion Gap 18 BUN 31 H Creatinine 1.80 H Est GFR ( Amer) 34 L Est GFR (Non-Af Amer) 28 L Glucose 130 H Calcium 8.5 EKG Comments: Sinus rhythm with left bundle branch block pattern Impressions: Chest X-Ray 11/01/17 16:16 IMPRESSION: Chronic appearing left apical and perihilar scarring. Density over the right lower lung represents a combination of prominent central pulmonary arteries and chronic collapse, lateral segment right middle lobe. Chest/Abdomen CTA 11/01/17 16:22 IMPRESSION: 1. There is no evidence of pulmonary emboli. 2. Chronic pulmonary and vascular findings as described. Assessment & Plan - Diagnosis (1) Acute respiratory failure with hypoxemia Is this a current diagnosis for this admission?: Yes (2) Chronic interstitial lung disease Is this a current diagnosis for this admission?: Yes (3) Chronic kidney disease, stage 3 Is this a current diagnosis for this admission?: Yes (4) Obesity hypoventilation syndrome Is this a current diagnosis for this admission?: Yes (5) Pulmonary hypertension Is this a current diagnosis for this admission?: Yes (6) Left bundle branch block Is this a current diagnosis for this admission?: Yes - Notes Notes: Acute respiratory failure with hypoxemia: Patient has been evaluated as much as we can in this institution. Pulmonary embolism has been ruled out. Patient does have interstitial lung disease and some scar tissue noted on CT scan. Could be having significant right to left shunting and venous admixture because of this. Further evaluation is needed at tertiary care center. Chronic interstitial lung disease: Patient CT from previous admissions and this admission reviewed. Pulmonary following. Agree with transfer to tertiary care for further evaluation. Chronic kidney disease: Patient has a history of this. This is currently stable. Continue to monitor renal functions. Coronary artery disease: This is symptomatically stable. Continue with current medications and management plans. Left bundle branch block pattern is noted to be chronic. Left bundle branch block pattern: This is chronic. Hypertension: Blood pressure is under well controlled. Continue current management plans. We will continue to follow patient. Continue cardiac monitoring to look for any arrhythmias etc. Agreed that patient will benefit from surgery care transfer for heart catheterization both right and left and institution of proper treatment of pulmonary hypertension, interstitial lung disease etc. This was related to Dr. Millan. - Time Time Spent: 30 to 50 Minutes - CODE STATUS was discussed, patient remains full code. Surrogate decision-maker unchanged. Multiple medical problems were addressed. More than 50% of the time spent coordinating care, discussing management plans with involved caregivers. Management plans discussed with involved personnels. Medical decision making was of moderate to high complexity , patient's has multiple comorbidities. Medications reviewed and adjusted accordingly: Yes
== END 2017-11-02 17:05 | disposition short-term general hospital (02) ==
LOC: ER 15:47 → EH 23:17 → INTOOBSV 23:17 → UNDOADMOB 23:17 → EH 11-02 01:05 → 3S 11-02 01:05 → EH 11-02 01:55 → 3S 11-02 01:55 → UNDODISOB 11-02 17:05
PROVIDERS: ADMIT Family Medicine; ATTEND Family Medicine
DX: R09.02 Hypoxemia (principal); I27.20 Pulmonary hypertension, unspecified; I25.10 Atherosclerotic heart disease of native coronary artery without angina pectoris; J84.89 Other specified interstitial pulmonary diseases; I13.0 Hypertensive heart and chronic kidney disease with heart failure and stage 1 through stage 4 chronic kidney disease, or unspecified chronic kidney disease; N18.3 Chronic kidney disease, stage 3 (moderate); I50.32 Chronic diastolic (congestive) heart failure; E03.9 Hypothyroidism, unspecified; I73.9 Peripheral vascular disease, unspecified; I25.2 Old myocardial infarction; R60.0 Localized edema; I44.7 Left bundle-branch block, unspecified; E66.2 Morbid (severe) obesity with alveolar hypoventilation; J44.9 Chronic obstructive pulmonary disease, unspecified; R23.0 Cyanosis; Z79.899 Other long term (current) drug therapy; Z79.82 Long term (current) use of aspirin; Z87.891 Personal history of nicotine dependence; Z82.49 Family history of ischemic heart disease and other diseases of the circulatory system; Z95.828 Presence of other vascular implants and grafts; Z99.81 Dependence on supplemental oxygen; Z68.39 Body mass index [BMI] 39.0-39.9, adult
CPT/HCPCS: 93005; 99291; 96374; 96375; 36415 ×2; 82803 ×2; 85025; 85027; 80048 ×2; 84484; 83880; 71046; 71275; 93010; 36600; 94660; A9270 ×8; J1940; J2930; J7512

== ENCOUNTER → 2017-11-22 | Outpatient (CLI) | payer MEDICARE, MEDICAID ==
[2017-11-22 10:10] LABS: HEMATOCRIT 42.9 % (36.0-47.0); HEMOGLOBIN 14.5 g/dL (12.0-15.5); MEAN CORPUSCULAR HEMOGLOBIN 34.4 pg (27.0-33.4); MEAN CORPUSCULAR HGB CONC 33.8 g/dL (32.0-36.0); MEAN CORPUSCULAR VOLUME 102 fl (80-97); PLATELET COUNT 201 10^3/uL (150-450); RED BLOOD COUNT 4.21 10^6/uL (3.72-5.28); RED CELL DISTRIBUTION WIDTH 14.3 % (11.5-14.0); WHITE BLOOD COUNT 6.8 10^3/uL (4.0-10.5)
[2017-11-22 10:16] LABS: APPEARANCE,URINE CLOUDY; BILIRUBIN,URINE NEGATIVE (NEGATIVE); COLOR,URINE YELLOW; GLUCOSE, URINE NEGATIVE (NEGATIVE); KETONES,URINE NEGATIVE (NEGATIVE); LEUKOCYTE ESTERASE,URINE TRACE (NEGATIVE); NITRITE,URINE NEGATIVE (NEGATIVE); PROTEIN,URINE NEGATIVE (NEGATIVE); URINE SPECIFIC GRAVITY 1.015
[2017-11-22 10:30] LABS: ANION GAP 15 (5-19); BLOOD UREA NITROGEN 85 mg/dL (7-20); CALCIUM 9.2 mg/dL (8.4-10.2); CARBON DIOXIDE 25 mmol/L (22-30); CHLORIDE 100 mmol/L (98-107); GLUCOSE 89 mg/dL (75-110); POTASSIUM 5.2 mmol/L (3.6-5.0); SODIUM 139.5 mmol/L (137-145)
== END ==
LOC: LAB 09:31
PROVIDERS: ATTEND Internal Medicine Nephrology
DX: I12.9 Hypertensive chronic kidney disease with stage 1 through stage 4 chronic kidney disease, or unspecified chronic kidney disease (principal); N18.4 Chronic kidney disease, stage 4 (severe); E87.5 Hyperkalemia; E66.9 Obesity, unspecified
CPT/HCPCS: 36415; 80048; 81001; 83735; 85027

== ENCOUNTER → 2018-01-07 | Outpatient (CLI) | payer MEDICARE, MEDICAID ==
[2018-01-07 13:28] LABS: HEMATOCRIT 39.7 % (36.0-47.0); HEMOGLOBIN 13.6 g/dL (12.0-15.5); MEAN CORPUSCULAR HEMOGLOBIN 34.5 pg (27.0-33.4); MEAN CORPUSCULAR HGB CONC 34.3 g/dL (32.0-36.0); MEAN CORPUSCULAR VOLUME 100 fl (80-97); PLATELET COUNT 189 10^3/uL (150-450); RED BLOOD COUNT 3.95 10^6/uL (3.72-5.28); RED CELL DISTRIBUTION WIDTH 13.5 % (11.5-14.0); WHITE BLOOD COUNT 5.2 10^3/uL (4.0-10.5)
[2018-01-07 13:37] LABS: APPEARANCE,URINE CLEAR; BILIRUBIN,URINE NEGATIVE (NEGATIVE); COLOR,URINE YELLOW; GLUCOSE, URINE NEGATIVE (NEGATIVE); KETONES,URINE NEGATIVE (NEGATIVE); LEUKOCYTE ESTERASE,URINE NEGATIVE (NEGATIVE); NITRITE,URINE NEGATIVE (NEGATIVE); PROTEIN,URINE NEGATIVE (NEGATIVE); UROBILINOGEN,URINE NEGATIVE mg/dL (<2.0)
[2018-01-07 13:47] LABS: ANION GAP 8 (5-19); BLOOD UREA NITROGEN 34 mg/dL (7-20); CARBON DIOXIDE 30 mmol/L (22-30); CHLORIDE 107 mmol/L (98-107); GLUCOSE 89 mg/dL (75-110); PHOSPHORUS 3.6 mg/dL (2.5-4.5); POTASSIUM 3.6 mmol/L (3.6-5.0); SODIUM 144.6 mmol/L (137-145)
== END ==
LOC: LAB 12:14
PROVIDERS: ATTEND Internal Medicine Nephrology
DX: N18.4 Chronic kidney disease, stage 4 (severe) (principal); I50.9 Heart failure, unspecified; E87.5 Hyperkalemia
CPT/HCPCS: 36415; 80048; 81001; 83735; 83970; 84100; 85027

== ENCOUNTER → 2018-02-04 | Outpatient (CLI) | payer MEDICARE, MEDICAID ==
[2018-02-04 10:05] LABS: ANION GAP 11 (5-19); BLOOD UREA NITROGEN 25 mg/dL (7-20); CALCIUM 8.2 mg/dL (8.4-10.2); CARBON DIOXIDE 30 mmol/L (22-30); CHLORIDE 103 mmol/L (98-107); GLUCOSE 90 mg/dL (75-110); POTASSIUM 3.5 mmol/L (3.6-5.0); SODIUM 144.2 mmol/L (137-145)
== END ==
LOC: LAB 09:01
PROVIDERS: ATTEND Internal Medicine
DX: I50.22 Chronic systolic (congestive) heart failure (principal); R06.00 Dyspnea, unspecified; I27.20 Pulmonary hypertension, unspecified
CPT/HCPCS: 36415; 80048

== ENCOUNTER → 2018-05-09 | Outpatient (CLI) | payer MEDICARE, MEDICAID ==
--- NOTE | 2018-05-09 10:50 | WOMENS IMAGING REPORT ---
EXAM DESCRIPTION: 3D SCREENING MAMMO BILAT COMPLETED DATE/TIME: 05/09/2018 9:23 am REASON FOR STUDY: SCREENING MAMMO Z12.31 ENCNTR SCREEN MAMMOGRAM FOR MALIGNANT NEOPLASM OF [place] COMPARISON: [id number] TECHNIQUE: Standard craniocaudal and mediolateral oblique views of each breast recorded using digita l acquisition and breast tomosynthesis. LIMITATIONS: None. FINDINGS: No masses, calcifications or architectural distortion. No areas of suspicion. Read with the assistance of CAD. .[facility] - R2 Cenova Version 1.3 .[facility] Imaging - R2 Cenova Version 1.3 .[facility] - R2 Cenova Version 2.4 .[facility] [place] R2 Cenova Version 2.4 .[facility] - R2 Personal Lines Agent Version 9.2 IMPRESSION: NORMAL MAMMOGRAM. BIRADS 1. BREAST DENSITY: b. There are scattered areas of fibroglandular density. BIRAD: 1 NEGATIVE RECOMMENDATION: ROUTINE SCREENING COMMENT: The patient has been notified of the results by letter per SA requirements. Additional no tification policies are in place for contacting patient with suspicious or incomplete findings. Quality ID #[id number]: The [employer] recommends an annual screening mammogram for women aged 40 years or over. This facility utilizes a reminder system to ensure that all patients receive reminder letters, and/or direct phone calls for appointments. This includes reminders for routine scr eening mammograms, diagnostic mammograms, or other Breast Imaging Interventions when appropriate. Th is patient will be placed in the appropriate reminder system. The [employer] (ACR) has developed recommendations for screening MRI of the breast s in certain patient populations, to be used in conjunction with mammography. Breast MRI surveillanc e may be appropriate for women with more than 20% lifetime risk of developing breast cancer as deter mined by genetic testing, significant family history of the disease, or history of mantle radiation f or Hodgkins Disease. ACR Practice Guidelines 2008. DBT Technology DBT is a type of tomographic mammography. With conventional mammography, overlapping breast tissue ma y make lesions difficult to detect, even with good compression. DBT uses an x-ray tube that rotates a round the breast, taking images at different angles. These images are then combined to create thin sl ices of the breast that the radiologist can view as a 3D reconstruction. The [id number] unit can perform full-field digital mammograms (2D imaging); or DBT (3D imaging); or both, in a combination mode that quickly performs both the mammogram and the tomosynthesis scan while the breast is still compressed. PQRS 6045F: Fluoroscopic imaging is not utilized for breast tomosynthesis. TECHNICAL DOCUMENTATION: FINDING NUMBER: (1) ASSESSMENT: (1) JOB ID: [id number] [employer]- All Rights Reserved Reading location - IP/workstation name: [facility]
== END ==
LOC: WI 08:59
PROVIDERS: ATTEND Family Medicine
DX: Z12.31 Encounter for screening mammogram for malignant neoplasm of breast (principal)
CPT/HCPCS: 77063; 77067

== ENCOUNTER 2019-08-24 11:07 | Emergency (ER) | payer MEDICARE, MEDICAID ==
--- NOTE | 2019-08-24 12:24 | ER Document Report ---
ED Medical Screen (RME) - General Chief Complaint: Headache Stated Complaint: HEADACHE Time Seen by Provider: 08/24/19 12:18 Primary Care Provider: NELI GONZÁLES PA-C [Primary Care Provider] - Follow up as needed Mode of Arrival: Wheelchair Information source: Patient Notes: 73-year-old female presents to ED for a severe headache to the left side of her head.. She states she has a hole in her heart and is not able to use her oxygen properly so she is on 2-1/2 L of oxygen daily. She states that recently she was felt like she was short of breath so she turned her oxygen up to 5. She has turned the back down to 2-1/2 now. She states she has a sharp jabbing pain to the left temporal area. She does take an aspirin a day no other blood thinners. She does wear glasses. Spoke with Dr. Robin due to the temporal headache. She said CT with and without. I have greeted and performed a rapid initial assessment of this patient. A comprehensive ED assessment and evaluation of the patient, analysis of test results and completion of medical decision making process will be conducted by an additional ED providers. TRAVEL OUTSIDE OF THE [place] IN LAST 30 DAYS: No - Related Data Allergies/Adverse Reactions: Sulfa (Sulfonamide Antibiotics) Allergy (Verified 05/26/16 11:36) Past Medical History - Past Medical History Cardiac Medical History: Reports: Hx Congestive Heart Failure, Hx Coronary Artery Disease, Hx Heart Attack, Hx Hypercholesterolemia, Hx Hypertension, Hx Peripheral Vascular Disease Pulmonary Medical History: Reports: Hx COPD Denies: Hx Tuberculosis Renal/ Medical History: Reports: Hx Renal Insufficiency. Denies: Hx Peritoneal Dialysis GI Medical History: Reports: Hx Gastroesophageal Reflux Disease. Denies: Hx Cirrhosis, Hx Crohn's Disease, Hx Hepatitis, Hx Ulcerative Colitis Musculoskeltal Medical History: Reports Hx Arthritis, Denies Hx Gout Psychiatric Medical History: Denies: Hx Bipolar Disorder, Hx Dementia, Hx Schizoaffective Disorder Traumatic Medical History: Denies: Hx Traumatic Brain Injury Infectious Medical History: Denies: Hx Hepatitis Past Surgical History: Reports: Hx Tonsillectomy - Immunizations Hx Diphtheria, Pertussis, Tetanus Vaccination: Yes - 2014 Physical Exam - Vital signs Vitals: Temp Pulse Resp BP 98.0 F 110 H 18 149/61 H 08/24/19 12:00 08/24/19 12:00 08/24/19 12:00 08/24/19 12:00 Course - Vital Signs Vital signs: Temp Pulse Resp BP Pulse Ox 98.0 F 110 H 18 149/61 H 08/24/19 12:00 08/24/19 12:00 08/24/19 12:00 08/24/19 12:00 Doctor's Discharge - Discharge Referrals: NELI GONZÁLES PA-C [Primary Care Provider] - Follow up as needed
[2019-08-24 13:16] LABS: ABSOLUTE EOSINOPHILS # (AUTO) 0.2 10^3/uL (0.0-0.6); ABSOLUTE LYMPHOCYTES (AUTO) 0.8 10^3/uL (0.5-4.7); ABSOLUTE MONOCYTES (AUTO) 0.3 10^3/uL (0.1-1.4); ABSOLUTE NEUT (AUTO) 5.2 10^3/uL (1.7-8.2); BASOPHILS % (AUTO) 0.5 % (0-2); EOSINOPHILS % (AUTO) 2.3 % (0-6); HEMATOCRIT 47.2 % (36.0-47.0); LYMPHOCYTES % (AUTO) 12.8 % (13-45); MEAN CORPUSCULAR HEMOGLOBIN 36.2 pg (27.0-33.4); MEAN CORPUSCULAR VOLUME 107 fl (80-97); MONOCYTES % (AUTO) 4.2 % (3-13); PLATELET COUNT 177 10^3/uL (150-450); RED BLOOD COUNT 4.42 10^6/uL (3.72-5.28); RED CELL DISTRIBUTION WIDTH 15.7 % (11.5-14.0); SEGMENTED NEUTROPHILS % (AUTO) 80.2 % (42-78); TOTAL CELLS COUNTED % (AUTO) 100 %; WHITE BLOOD COUNT 6.5 10^3/uL (4.0-10.5)
[2019-08-24 13:33] LABS: ALBUMIN 3.9 g/dL (3.5-5.0); ALKALINE PHOSPHATASE 103 U/L (38-126); ANION GAP 6 (5-19); ASPARTATE AMINO TRANSFERASE 27 U/L (14-36); BILIRUBIN,DIRECT 0.1 mg/dL (0.0-0.4); BLOOD UREA NITROGEN 18 mg/dL (7-20); CALCIUM 8.7 mg/dL (8.4-10.2); CARBON DIOXIDE 27 mmol/L (22-30); CHLORIDE 109 mmol/L (98-107); GLUCOSE 102 mg/dL (75-110); POTASSIUM 5.2 mmol/L (3.6-5.0); TOTAL PROTEIN 9.1 g/dL (6.3-8.2)
--- NOTE | 2019-08-24 16:24 | ER Document Report ---
ED Headache - General Chief Complaint: Headache >24 hrs old Stated Complaint: HEADACHE Time Seen by Provider: 08/24/19 12:18 Primary Care Provider: NELI GONZÁLES PA-C [PHYSICIAN DYE FEEDER] - Follow up as needed Mode of Arrival: Wheelchair Notes: 73-year-old woman presents with a history of pulmonary hypertension, home O2, polycythemia, renal insufficiency and complaint of headaches. Apparently she has had intermittent headaches for approximately 1 week, her O2 sats are in the mid to high 80s chronically. She denies neurologic symptoms, fever chills or associated increased shortness of breath. She complains of pain in the left side of the head, no visual changes, no nausea and vomiting, no photophobia. TRAVEL OUTSIDE OF THE [place] IN LAST 30 DAYS: No - Related Data Allergies/Adverse Reactions: Sulfa (Sulfonamide Antibiotics) Allergy (Verified 05/26/16 11:36) Past Medical History - General Information source: Patient - Social History Smoking Status: Former Smoker Chew tobacco use (# tins/day): No Frequency of alcohol use: None Drug Abuse: None Family History: Hypertension Patient has suicidal ideation: No Patient has homicidal ideation: No - Past Medical History Cardiac Medical History: Reports: Hx Congestive Heart Failure, Hx Coronary Artery Disease, Hx Heart Attack, Hx Hypercholesterolemia, Hx Hypertension, Hx Peripheral Vascular Disease Pulmonary Medical History: Reports: Hx COPD Denies: Hx Tuberculosis Renal/ Medical History: Reports: Hx Renal Insufficiency. Denies: Hx Peritoneal Dialysis GI Medical History: Reports: Hx Gastroesophageal Reflux Disease. Denies: Hx Cirrhosis, Hx Crohn's Disease, Hx Hepatitis, Hx Ulcerative Colitis Musculoskeletal Medical History: Reports Hx Arthritis, Denies Hx Gout Psychiatric Medical History: Denies: Hx Bipolar Disorder, Hx Dementia, Hx Schizoaffective Disorder Traumatic Medical History: Denies: Hx Traumatic Brain Injury Infectious Medical History: Denies: Hx Hepatitis Past Surgical History: Reports: Hx Tonsillectomy - Immunizations Hx Diphtheria, Pertussis, Tetanus Vaccination: Yes - 2014 Hx Pneumococcal Vaccination: 03/26/13 Review of Systems - Review of Systems Notes: Constitutional: Negative for fever. HENT: Negative for sore throat. Eyes: Negative for visual changes. Cardiovascular: Negative for chest pain. Respiratory: + Chronic shortness of breath. Gastrointestinal: Negative for abdominal pain, vomiting or diarrhea. Genitourinary: Negative for dysuria. Musculoskeletal: Negative for back pain. Skin: Negative for rash. Neurological: + headaches 10 point ROS negative except as marked above and in HPI. Physical Exam - Vital signs Vitals: Temp Pulse Resp BP 98.0 F 110 H 18 149/61 H 08/24/19 12:00 08/24/19 12:00 08/24/19 12:00 08/24/19 12:00 - Notes Notes: PHYSICAL EXAMINATION: Physical Exam: General: Well-nourished well-developed woman in no acute distress HEENT: NC/AT, pupils equal round and reactive to light, MM moist,nares clear, nasal cannula O2 in place Neck: supple, no adenopathy, no masses. Lungs: clear, no wheezing, no rales no rhonchi CVS: Regular rate and rhythm no murmur gallop or rub Abdomen: Soft, active, nontender, no masses, no hepatosplenomegaly Ext: No edema, clubbing or cyanosis. Neuro: Alert and responsive, moving all 4 extremities on command, cranial nerves intact. Skin: Intact no open lesions, no rash PSYCH: Normal mood, normal affect. Course - Re-evaluation Re-evalutation: 08/24/19 18:51 CT scan of the head was performed and read as no acute findings. Patient was given Tylenol 650 mg and had complete resolution of her headache. She is chronically hypoxic and headache may be related to the low oxygen levels. I have explained to the patient that she can use Tylenol at home that her O2 can be adjusted up to 3 L, if there is a need for more she should be seen and evaluated by her primary physician. She is taking sildenafil for the pulmonary hypertension and states that it seems to help. - Vital Signs Vital signs: Temp Pulse Resp BP Pulse Ox 98.0 F 104 H 18 149/61 H 61 L 08/24/19 12:00 08/24/19 12:27 08/24/19 12:00 08/24/19 12:00 08/24/19 12:27 - Laboratory Result Diagrams: 08/24/19 13:00 08/24/19 13:00 Laboratory results interpreted by me: 08/24/19 08/24/19 13:00 13:00 Hgb 16.0 H Hct 47.2 H MCV 107 H MCH 36.2 H RDW 15.7 H Lymph % (Auto) 12.8 L Seg Neutrophils % 80.2 H Potassium 5.2 H Chloride 109 H Creatinine 1.40 H Est GFR ( Amer) 45 L Est GFR (MDRD) Non-Af 37 L Total Protein 9.1 H - Diagnostic Test Radiology reviewed: Image reviewed, Reports reviewed - CT head noncontrast: No acute intracranial abnormalities. Discharge - Discharge Clinical Impression: Obesity hypoventilation syndrome, Pulmonary hypertension, Hypoxia Condition: Good Disposition: HOME, SELF-CARE Additional Instructions: You have been seen in the Emergency Department (ED) for a headache. Please use Tylenol (acetaminophen) as needed for symptoms, but only as written on the box. As we have discussed, please follow up with your primary care doctor as soon as possible regarding today's ED visit and your headache symptoms. Call your doctor or return to the ED if you have a worsening headache, sudden and severe headache, confusion, slurred speech, facial droop, weakness or numbness in any arm or leg, extreme fatigue, or other symptoms that concern you. Referrals: NELI GONZÁLES PA-C [PHYSICIAN DYE FEEDER] - Follow up as needed
[2019-08-24] MEDS ORDERED: ACETAMINOPHEN 325 MG TABLET PO ONE (16:52)
--- NOTE | 2019-08-24 18:17 | RADIOLOGY REPORT (SQ) ---
EXAM DESCRIPTION: CT HEAD WITHOUT COMPLETED DATE/TIME: 08/24/2019 4:09 pm REASON FOR STUDY: Headache COMPARISON: None. TECHNIQUE: Axial images acquired through the brain without intravenous contrast. Images reviewed wi th bone, brain and subdural windows. Images stored on PACS. All CT scanners at this facility use dose modulation, iterative reconstruction, and/or weight based d osing when appropriate to reduce radiation dose to as low as reasonably achievable (ALARA). [facility]: Dose Right [facility]: CareDose [facility]: Dose Right [facility]: Teradose 4D [facility]: Smart Rapid [employer] RADIATION DOSE: CT Rad equipment meets quality standard of care and radiation dose reduction techniq ues were employed. CTDIvol: 53.2 mGy. DLP: 1044 mGy-cm. mGy. LIMITATIONS: None. FINDINGS: VENTRICLES: Moderate prominence of the ventricles out of proportion to the sulci. CEREBRUM: No masses. No hemorrhage. No midline shift. No evidence for acute infarction. Normal gra y-white matter differentiation. Moderate diffuse periventricular, deep, and subcortical white matter hypodense attenuation consistent with moderate chronic small vessel ischemic change. There is intra cranial atherosclerosis. CEREBELLUM: No masses. No hemorrhage. No alteration of density. No evidence for acute infarction. EXTRAAXIAL SPACES: No fluid collections. No masses. ORBITS AND GLOBE: No intra- or extraconal masses. Normal contour of globe without masses. CALVARIUM: No fracture. PARANASAL SINUSES: No fluid or mucosal thickening. SOFT TISSUES: No mass or hematoma. OTHER: No other significant finding. IMPRESSION: 1. No acute intracranial hemorrhage, mass, or evidence of acute territorial infarct. 2. Moderate chronic small vessel ischemic change and intracranial atherosclerosis. 3. Moderate prominence of the ventricles out of proportion to the sulci, which sometimes can indicate normal pressure hydrocephalus. Clinical correlation is recommended. EVIDENCE OF ACUTE STROKE: NO. COMMENT: Quality ID # [id number]: Final reports with documentation of one or more dose reduction techniques (e.g., Automated exposure control, adjustment of the mA and/or kV according to patient size, use of iterative reconstruction technique) TECHNICAL DOCUMENTATION: JOB ID: [id number] [employer]- All Rights Reserved Reading location - IP/workstation name: [email or web address]
[2019-08-24 19:37] VITALS: BP 145/79
== END 2019-08-24 19:37 | disposition home or self-care (01) ==
LOC: ER 11:07
DX: R06.89 Other abnormalities of breathing (principal); R09.02 Hypoxemia; I27.20 Pulmonary hypertension, unspecified; R06.02 Shortness of breath; E66.9 Obesity, unspecified; R51 Headache; I25.10 Atherosclerotic heart disease of native coronary artery without angina pectoris; Z99.81 Dependence on supplemental oxygen; Z87.891 Personal history of nicotine dependence; Z88.2 Allergy status to sulfonamides
CPT/HCPCS: 99284; 36415; 85025; 80053; 70450; A9270

== ENCOUNTER 2019-08-31 10:49 | Inpatient (IN) | payer MEDICARE, MEDICAID ==
--- NOTE | 2019-08-31 11:48 | ER Document Report ---
ED General - General Stated Complaint: HEADACHE Time Seen by Provider: 08/31/19 11:30 Primary Care Provider: MAGDI MILLAN MD [Primary Care Provider] - Follow up as needed TRAVEL OUTSIDE OF THE [place] IN LAST 30 DAYS: No - HPI Notes: Ms. Rea is a 73-year-old female followed by Dr. Millan with a history of obstructive sleep apnea syndrome and chronic hypoxemia now presenting via EMS for chief complaint of headache. She was seen here 2 days ago for the same complaint by Dr. Wang and at that time had a noncontrast head CT which was normal. She did not have a fever or any focal neurologic deficit. He felt this was related to her polycythemia and chronic respiratory failure. She was running an O2 saturation in the 80s when she arrived on her usual 3 L of nasal O2. We note that she does not use CPAP at home. Patient denies chest pain cough, wheezing, sputum production or increasing peripheral edema. She is a relatively poor historian. She says she is previously been treated at [facility] for "some kind of a heart problem". - Related Data Allergies/Adverse Reactions: Sulfa (Sulfonamide Antibiotics) Allergy (Verified 05/26/16 11:36) Past Medical History - General Information source: Patient, Emergency Med Personnel, [facility] Records - Social History Smoking Status: Never Smoker Family History: Hypertension - Past Medical History Cardiac Medical History: Reports: Hx Congestive Heart Failure, Hx Coronary Artery Disease, Hx Heart Attack, Hx Hypercholesterolemia, Hx Hypertension, Hx Peripheral Vascular Disease Pulmonary Medical History: Reports: Hx COPD Denies: Hx Tuberculosis Renal/ Medical History: Reports: Hx Renal Insufficiency. Denies: Hx Peritoneal Dialysis GI Medical History: Reports: Hx Gastroesophageal Reflux Disease. Denies: Hx Cirrhosis, Hx Crohn's Disease, Hx Hepatitis, Hx Ulcerative Colitis Musculoskeletal Medical History: Reports Hx Arthritis, Denies Hx Gout Psychiatric Medical History: Denies: Hx Bipolar Disorder, Hx Dementia, Hx Schizoaffective Disorder Traumatic Medical History: Denies: Hx Traumatic Brain Injury Infectious Medical History: Denies: Hx Hepatitis Past Surgical History: Reports: Hx Tonsillectomy - Immunizations Hx Diphtheria, Pertussis, Tetanus Vaccination: Yes - 2014 Hx Pneumococcal Vaccination: 03/26/13 Review of Systems - Review of Systems Notes: Constitutional: Negative for fever. HENT: Negative for sore throat. Eyes: Negative for visual changes. Cardiovascular: Negative for chest pain. Respiratory: As per HPI. Gastrointestinal: Negative for abdominal pain, vomiting or diarrhea. Genitourinary: Negative for dysuria. Musculoskeletal: Negative for back pain. Skin: Negative for rash. Neurological: As per HPI. 10 point ROS negative except as marked above and in HPI. Physical Exam - Vital signs Vitals: Pulse Ox 64 L 08/31/19 10:59 - Notes Notes: GENERAL: Elderly female who appears dyspneic on nonrebreather with 89% O2 sat. SKIN: Good turgor no rashes. HEAD: Normocephalic atraumatic. EYES: PERRLA. EOMI. Conjunctivae and sclerae clear. EARS: CANALS AND TMS CLEAR. NOSE: CLEAR. MOUTH: Moist mucosa. Good dentition. No stridor or edema. No drooling. NECK: Supple. No masses or thyromegaly. No adenopathy. Carotids 2+ without bruits. No JVD. BACK: Symmetrical without tenderness. CHEST: Respirations unlabored. Breath sounds clear and symmetrical. HEART: Regular rhythm. No murmur gallop or rub. ABDOMEN: Soft nontender without masses, organomegaly or rebound. Bowel sounds normally active. No bruits. GENITALIA: Deferred. EXTREMITIES: 1+ bilateral pretibial edema. No calf tenderness. Cap refill less than 1.5 seconds. Dorsalis pedis and posterior tibial pulses 3+ and symmetrical. NEUROLOGICAL: GCS 15. Alert and oriented x3. Fluent speech. Cranial nerves II through XII intact. Sensorimotor and cerebellar normal. Normal tone. PSYCHIATRIC: Appropriate affect. Course - Re-evaluation Re-evalutation: 08/31/19 14:03 Patient appeared to be in acute on chronic respiratory failure upon arrival here and was placed on BiPAP. Chest x-ray was obtained and shows chronic fibrotic changes of both lungs and also a right basilar infiltrate. Patient was started on double antibiotic coverage IV is a community-acquired pneumonia with ceftriaxone and azithromycin. Follow-up arterial blood gas was obtained on BiPAP and showed normal pH with a PCO2 49 PO2 of 62 on 100% oxygen. Case was discussed with her primary care provider Dr. Millan who indicates this lady has a history of very bad pulmonary hypertension and has been followed at [facility] in [facility]. He would prefer that she be transferred there for care. I have call into their service at this time try to coordinate transport. 08/31/19 14:31 Troponin is normal. Flu swab is pending. EKG shows left bundle branch block this is unchanged from baseline tracing. Case is been discussed with transfer center at cardiac connection [facility] and they are going to have general medicine team call me back regarding this patient. 08/31/19 17:56 Patient has been accepted for transfer to [facility] by Dr. Han - Vital Signs Vital signs: Temp Pulse Resp BP Pulse Ox 98.7 F 15 150/78 H 92 08/31/19 12:01 08/31/19 15:01 08/31/19 15:01 08/31/19 16:03 - Laboratory Result Diagrams: 08/31/19 11:25 08/31/19 11:25 Laboratory results interpreted by me: 08/31/19 08/31/19 08/31/19 11:25 11:25 11:25 MCV 107 H MCH 35.7 H RDW 16.1 H Lymph % (Auto) 5.6 L Absolute Lymphs (auto) 0.4 L Seg Neutrophils % 90.9 H ESR Carbonic Acid ABG pCO2 ABG pO2 ABG HCO3 ABG Total CO2 ABG O2 Saturation BUN 21 H Creatinine 1.33 H Est GFR ( Amer) 48 L Est GFR (MDRD) Non-Af 39 L Glucose 114 H NT-Pro-B Natriuret Pep 3300 H Total Protein 9.1 H 08/31/19 08/31/19 11:25 13:21 MCV MCH RDW Lymph % (Auto) Absolute Lymphs (auto) Seg Neutrophils % ESR 41 H Carbonic Acid 1.50 H ABG pCO2 49.8 H ABG pO2 63.6 L ABG HCO3 26.6 H ABG Total CO2 28.1 H ABG O2 Saturation 91.0 L BUN Creatinine Est GFR ( Amer) Est GFR (MDRD) Non-Af Glucose NT-Pro-B Natriuret Pep Total Protein - Diagnostic Test Radiology reviewed: Reports reviewed - Patchy right lower lobe infiltrate per radiologist. - EKG Interpretation by Me Additional EKG results interpreted by me: 08/31/19 14:32 Twelve-lead EKG from 1211 hrs. reviewed by me contemporaneously showing normal sinus rhythm with rate of 92 and pre-existing left bundle branch block with overall appearance of the tracing unchanged compared with prior study of November 01, 2017. Critical Care Note - Critical Care Note Total time excluding time spent on procedures (mins): 35 - BiPAP initiated. Discharge - Discharge Clinical Impression: Headache, Pulmonary hypertension Acute and chronic respiratory failure Qualifiers: Respiratory failure complication: unspecified whether with hypoxia or hypercapnia Qualified Code(s): J96.20 - Acute and chronic respiratory failure, unspecified whether with hypoxia or hypercapnia Pneumonia Qualifiers: Pneumonia type: due to unspecified organism Laterality: right Lung location: lower lobe of lung Qualified Code(s): J18.9 - Pneumonia, unspecified organism CHF (congestive heart failure) Qualifiers: Heart failure type: unspecified Heart failure chronicity: acute on chronic Qualified Code(s): I50.9 - Heart failure, unspecified Condition: Fair Disposition: [facility] Referrals: MAGDI MILLAN MD [Primary Care Provider] - Follow up as needed
[2019-08-31] MEDS ORDERED: KETOROLAC TROMETHAMINE INJ/PF 30 MG/1 ML SDV IV ONE (11:52)
[2019-08-31 12:02] LABS: ABSOLUTE LYMPHOCYTES (AUTO) 0.4 10^3/uL (0.5-4.7); ABSOLUTE MONOCYTES (AUTO) 0.2 10^3/uL (0.1-1.4); ABSOLUTE NEUT (AUTO) 5.8 10^3/uL (1.7-8.2); BASOPHILS % (AUTO) 0.2 % (0-2); EOSINOPHILS % (AUTO) 0.3 % (0-6); HEMOGLOBIN 15.3 g/dL (12.0-15.5); LYMPHOCYTES % (AUTO) 5.6 % (13-45); MEAN CORPUSCULAR HEMOGLOBIN 35.7 pg (27.0-33.4); MEAN CORPUSCULAR HGB CONC 33.3 g/dL (32.0-36.0); MEAN CORPUSCULAR VOLUME 107 fl (80-97); PLATELET COUNT 161 10^3/uL (150-450); RED BLOOD COUNT 4.29 10^6/uL (3.72-5.28); RED CELL DISTRIBUTION WIDTH 16.1 % (11.5-14.0); SEGMENTED NEUTROPHILS % (AUTO) 90.9 % (42-78); TOTAL CELLS COUNTED % (AUTO) 100 %; WHITE BLOOD COUNT 6.4 10^3/uL (4.0-10.5)
[2019-08-31 12:07] LABS: ALBUMIN 3.8 g/dL (3.5-5.0); ALKALINE PHOSPHATASE 95 U/L (38-126); ANION GAP 8 (5-19); ASPARTATE AMINO TRANSFERASE 24 U/L (14-36); BILIRUBIN,DIRECT 0.3 mg/dL (0.0-0.4); BILIRUBIN,TOTAL 1.1 mg/dL (0.2-1.3); BLOOD UREA NITROGEN 21 mg/dL (7-20); CALCIUM 8.4 mg/dL (8.4-10.2); CARBON DIOXIDE 26 mmol/L (22-30); CHLORIDE 107 mmol/L (98-107); GLUCOSE 114 mg/dL (75-110); POTASSIUM 4.8 mmol/L (3.6-5.0); TOTAL PROTEIN 9.1 g/dL (6.3-8.2)
--- NOTE | 2019-08-31 12:07 | RADIOLOGY REPORT (SQ) ---
EXAM DESCRIPTION: CHEST SINGLE VIEW COMPLETED DATE/TIME: 08/31/2019 11:49 am REASON FOR STUDY: low o2 COMPARISON: 11/01/2017. EXAM PARAMETERS: NUMBER OF VIEWS: One view. TECHNIQUE: Single frontal radiographic view of the chest acquired. RADIATION DOSE: NA LIMITATIONS: None. FINDINGS: LUNGS AND PLEURA: Chronic interstitial changes. Faint increased density in the right lowe r lobe. Chronic scarring in the left apex. No masses or pneumothorax. No pleural effusion. MEDIASTINUM AND HILAR STRUCTURES: No masses. Contour normal. HEART AND VASCULAR STRUCTURES: Heart upper limits of normal in size. Normal vasculature. BONES: No acute findings. HARDWARE: None in the chest. OTHER: No other significant finding. IMPRESSION: CHRONIC INTERSTITIAL CHANGES AND SCARRING IN THE LEFT APEX. FAINT DENSITY IN THE RIGHT LOWER LOBE, POSSIBLY EARLY PNEUMONIA. TECHNICAL DOCUMENTATION: JOB ID: [id number] 2010 [employer]- All Rights Reserved Reading location - IP/workstation name: [email or web address]
[2019-08-31 12:18] LABS: TROPONIN I 0.023 ng/mL
--- NOTE | 2019-08-31 13:33 | EKG REPORT ---
SEVERITY:- ABNORMAL ECG - SINUS RHYTHM LEFT BUNDLE BRANCH BLOCK : Confirmed by: Theo Cardoso MD 31-Aug-2019 13:31:02
[2019-08-31 13:39] LABS: ARTERIAL BLOOD BASE EXCESS 0.1 mmol/L; ARTERIAL BLOOD HCO3 26.6 mmol/L (20-24); ARTERIAL BLOOD PCO2 49.8 mmHg (35-45); ARTERIAL BLOOD PH 7.35 (7.35-7.45); ARTERIAL BLOOD PO2 63.6 mmHg (80-100); ARTERIAL BLOOD TOTAL CO2 28.1 mmol/L (21-25)
[2019-08-31 13:40] LABS: ARTERIAL BLOOD FIO2 90%
[2019-08-31] MEDS ORDERED: TRAMADOL HCL 50 MG TABLET PO ONE (13:51)
[2019-08-31] MEDS ORDERED: CEFTRIAXONE INJ 1000 MG VIAL IV ONE (13:54)
[2019-08-31] MEDS ORDERED: AZITHROMYCIN INJ 500 MG VIAL IV ONE (14:02)
[2019-08-31] MEDS ORDERED: FUROSEMIDE INJ/PF 20 MG/2 ML SDV IV ONE (17:55)
[2019-08-31 18:55] LABS: A TYPE INFLUENZA AG NEGATIVE (NEGATIVE); B INFLUENZA AG NEGATIVE (NEGATIVE)
[2019-08-31 20:51] LABS: APPEARANCE,URINE SLIGHTLY-CLOUDY; BILIRUBIN,URINE NEGATIVE (NEGATIVE); COLOR,URINE YELLOW; GLUCOSE, URINE NEGATIVE (NEGATIVE); KETONES,URINE NEGATIVE (NEGATIVE); LEUKOCYTE ESTERASE,URINE NEGATIVE (NEGATIVE); NITRITE,URINE NEGATIVE (NEGATIVE); PROTEIN,URINE 100 mg/dL (NEGATIVE); URINE SPECIFIC GRAVITY 1.014; UROBILINOGEN,URINE NEGATIVE mg/dL (<2.0)
[2019-09-01] MEDS ORDERED: ACETAMINOPHEN 325 MG TABLET PO ONE (21:55)
[2019-09-02] MEDS ORDERED: CEFTRIAXONE INJ 1000 MG VIAL IV ONE (09:23)
[2019-09-02] MEDS ORDERED: AZITHROMYCIN INJ 500 MG VIAL IV ONE (09:26)
[2019-09-02] MEDS ORDERED: NORMAL SALINE 1000 ML 1,000 ML IV PRN (19:43)
[2019-09-02] MEDS ORDERED: OLOPATADINE HCL 0.1% OPH SOLN 5 ML OU PRN (19:45)
[2019-09-02] MEDS ORDERED: SILDENAFIL CITRATE 20 MG TABLET ONE (22:40)
[2019-09-02] MEDS: SILDENAFIL CITRATE 20 MG TABLET PO SCH (22:48)
[2019-09-03 04:58] LABS: ABSOLUTE BASOPHILS # (AUTO) 0.1 10^3/uL (0.0-0.2); ABSOLUTE EOSINOPHILS # (AUTO) 0.3 10^3/uL (0.0-0.6); ABSOLUTE LYMPHOCYTES (AUTO) 0.5 10^3/uL (0.5-4.7); ABSOLUTE MONOCYTES (AUTO) 0.3 10^3/uL (0.1-1.4); ABSOLUTE NEUT (AUTO) 5.4 10^3/uL (1.7-8.2); BASOPHILS % (AUTO) 1.6 % (0-2); EOSINOPHILS % (AUTO) 4.1 % (0-6); HEMATOCRIT 40.2 % (36.0-47.0); HEMOGLOBIN 13.4 g/dL (12.0-15.5); LYMPHOCYTES % (AUTO) 7.3 % (13-45); MEAN CORPUSCULAR HEMOGLOBIN 35.4 pg (27.0-33.4); MEAN CORPUSCULAR HGB CONC 33.3 g/dL (32.0-36.0); MEAN CORPUSCULAR VOLUME 106 fl (80-97); MONOCYTES % (AUTO) 4.7 % (3-13); PLATELET COUNT 140 10^3/uL (150-450); RED BLOOD COUNT 3.78 10^6/uL (3.72-5.28); RED CELL DISTRIBUTION WIDTH 15.1 % (11.5-14.0); SEGMENTED NEUTROPHILS % (AUTO) 82.3 % (42-78); TOTAL CELLS COUNTED % (AUTO) 100 %; WHITE BLOOD COUNT 6.6 10^3/uL (4.0-10.5)
[2019-09-03 05:17] LABS: ALBUMIN 2.9 g/dL (3.5-5.0); ALKALINE PHOSPHATASE 69 U/L (38-126); ANION GAP 6 (5-19); ASPARTATE AMINO TRANSFERASE 23 U/L (14-36); BILIRUBIN,DIRECT 0.2 mg/dL (0.0-0.4); BILIRUBIN,TOTAL 0.9 mg/dL (0.2-1.3); BLOOD UREA NITROGEN 20 mg/dL (7-20); CALCIUM 8.4 mg/dL (8.4-10.2); CARBON DIOXIDE 26 mmol/L (22-30); CHLORIDE 106 mmol/L (98-107); CHOLESTEROL 126.48 mg/dL (0-200); GLUCOSE 83 mg/dL (75-110); POTASSIUM 4.8 mmol/L (3.6-5.0); TOTAL PROTEIN 7.4 g/dL (6.3-8.2); TRIGLYCERIDES 52 mg/dL (<150)
[2019-09-03 05:28] LABS: DIRECT LDL 66 mg/dL (<100)
[2019-09-03] MEDS ORDERED: SILDENAFIL CITRATE 20 MG TABLET ONE ×2 (05:44→21:40)
[2019-09-03] MEDS: LEVOTHYROXINE SODIUM 0.025 MG TABLET PO SCH (05:54)
[2019-09-03] MEDS: SILDENAFIL CITRATE 20 MG TABLET PO SCH ×3 (05:54→22:09)
[2019-09-03] MEDS: PANTOPRAZOLE SODIUM 40 MG TABLET.DR PO SCH (05:54)
[2019-09-03 06:49] LABS: ARTERIAL BLOOD BASE EXCESS -0.8 mmol/L; ARTERIAL BLOOD H2CO3 1.46 mmol/L (1.05-1.35); ARTERIAL BLOOD HCO3 25.6 mmol/L (20-24); ARTERIAL BLOOD O2 SATURATION 74.6 % (94-98); ARTERIAL BLOOD PCO2 48.6 mmHg (35-45); ARTERIAL BLOOD PH 7.34 (7.35-7.45); ARTERIAL BLOOD PO2 42.3 mmHg (80-100); ARTERIAL BLOOD TOTAL CO2 27.1 mmol/L (21-25)
[2019-09-03 06:55] LABS: ARTERIAL BLOOD FIO2 80%
[2019-09-03] MEDS ORDERED: ACETAMINOPHEN 325 MG TABLET PO PRN (09:17)
[2019-09-03] MEDS: ENOXAPARIN SODIUM INJ 40 MG/0.4 ML DISP.SYRIN SUBCUT SCH (09:19)
[2019-09-03] MEDS: ASPIRIN 81 MG TABLET, ENT COATED PO SCH (09:20)
[2019-09-03] MEDS: OMEGA-3 ACID ETHYL ESTERS 1 GM CAPSULE PO SCH (09:20)
[2019-09-03] MEDS: AMLODIPINE BESYLATE 5 MG TABLET PO SCH (09:20)
[2019-09-03] MEDS: MAGNESIUM OXIDE 400 MG TABLET PO SCH (09:20)
[2019-09-03 10:46] LABS: ARTERIAL BLOOD BASE EXCESS 0.1 mmol/L; ARTERIAL BLOOD FIO2 60%; ARTERIAL BLOOD H2CO3 1.55 mmol/L (1.05-1.35); ARTERIAL BLOOD HCO3 26.7 mmol/L (20-24); ARTERIAL BLOOD O2 SATURATION 78.7 % (94-98); ARTERIAL BLOOD PCO2 51.4 mmHg (35-45); ARTERIAL BLOOD PH 7.33 (7.35-7.45); ARTERIAL BLOOD PO2 46.1 mmHg (80-100); ARTERIAL BLOOD TOTAL CO2 28.3 mmol/L (21-25)
--- NOTE | 2019-09-03 11:13 | PDOC H&P ---
History of Present Illness Admission Date/PCP: 09/02/19 17:06 SULAIMAN REYES MD History of Present Illness: NELI BAEZ is a 73 year old female known to Dr. Sulaiman Reyes who presented to the ED via EMS 3 days ago with complaint of headache. She was at the ED about two days prior with similar complaints and was diagnosed with hypoxemia, hypercapnia, and polycythemia as cause of her symptom and noncompliance with CPAP usage. Her initial oxygen saturation upon arrival in the ED was in the 80% on 3L/min supplemental oxygen. Her ABG confirmed hypoxemia and hypercapnia on 90% supplemental oxygen. Further evaluation in the ED revealed early features on chest X ray suggestive of right lower lobe pneumonia. She denied any fever, chills, productive coughing, or chest pain. Patient eventually resend her request for transfer to [facility] in [place] due to unavailability of bed after staying in the ED for 3 days. She will be admitted to [facility] for further evaluation and management. Her morbidities are as listed below. Past Medical History Cardiac Medical History: Reports: Congestive Heart Failure, Coronary Artery Disease, Myocardial Infarction, Hyperlipidema, Hypertension, Peripheral Vascular Disease Pulmonary Medical History: Reports: Chronic Obstructive Pulmonary Disease (COPD) Denies: Tuberculosis GI Medical History: Reports: Gastroesophageal Reflux Disease Denies: Cirrhosis, Crohn's Disease, Hepatitis, Ulcerative Colitis Musculoskeltal Medical History: Reports: Arthritis Denies: Gout Psychiatric Medical History: Denies: Bipolar Disorder, Dementia, Schizoaffective Disorder Traumatic Medical History: Denies: Traumatic Brain Injury Hematology: Denies: Sickle Cell Disease Past Surgical History Past Surgical History: Reports: Tonsillectomy Social History Smoking Status: Never Smoker Electronic Cigarette use?: No Frequency of Alcohol Use: Occasional Hx Recreational Drug Use: No Hx Prescription Drug Abuse: No - Advance Directive Resuscitation Status: Full Code Family History Family History: Hypertension Parental Family History Reviewed: Yes Children Family History Reviewed: Yes Sibling(s) Family History Reviewed.: Yes Medication/Allergy Home Medications: Fluticasone Propionate [Flonase Nasal [place] 50 Mcg/[place] 16 gm] 1 spray NAREB DAILY 11/02/17 Levocetirizine Dihydrochloride [Xyzal] 5 mg PO QPM 11/02/17 Levothyroxine Sodium [Synthroid 0.025 mg Tablet] 0.025 mg PO Q6AM 11/02/17 Albuterol Sulfate [Proair Hfa Inhalation Aerosol 8.5 gm Mdi] 2 puff IH Q6HP PRN 09/01/19 Amlodipine Besylate [Norvasc 5 mg Tablet] 5 mg PO DAILY 09/01/19 Aspirin [Ecotrin 81 mg EC Tablet] 81 mg PO DAILY 09/01/19 Magnesium Oxide [Mag-Ox 400 mg Tablet] 400 mg PO DAILY 09/01/19 Olopatadine HCl [Patanol 0.1% Oph Soln 5 Ml Bottle] 1 drop OU Q12HP PRN 09/01/19 [place]-3 Fatty Acids/Fish Oil [[place] 3 Fish Oil Softgel] 1 each PO DAILY 09/01/19 Sildenafil Citrate 20 mg PO Q8 09/01/19 Allergies/Adverse Reactions: Sulfa (Sulfonamide Antibiotics) Allergy (Verified 05/26/16 11:36) Review of Systems Constitutional: PRESENT: headache(s). ABSENT: chills, fever(s), weight gain, weight loss Eyes: ABSENT: visual disturbances Ears: ABSENT: hearing changes Cardiovascular: ABSENT: chest pain, dyspnea on exertion, edema, orthropnea, palpitations Respiratory: ABSENT: cough, hemoptysis Gastrointestinal: ABSENT: abdominal pain, constipation, diarrhea, hematemesis, hematochezia, nausea, vomiting Genitourinary: ABSENT: dysuria, hematuria Musculoskeletal: ABSENT: joint swelling Integumentary: ABSENT: rash, wounds Neurological: ABSENT: abnormal gait, abnormal speech, confusion, dizziness, fo fuentes weakness, syncope Psychiatric: ABSENT: anxiety, depression, homidical ideation, suicidal ideation Endocrine: ABSENT: cold intolerance, heat intolerance, polydipsia, polyuria Hematologic/Lymphatic: ABSENT: easy bleeding, easy bruising, lymphadenopathy Allergic/Immunologic: ABSENT: seasonal rhinorrhea Physical Exam Vital Signs: Temp Pulse Resp BP Pulse Ox 97.3 F 65 17 129/62 H 72 L 09/02/19 12:00 09/01/19 06:10 09/02/19 12:01 09/02/19 12:00 09/02/19 12:01 Intake & Output 09/01/19 09/02/19 09/03/19 06:59 06:59 06:59 Weight 106 kg General appearance: PRESENT: mild distress - on BiPAP support, obese Head exam: PRESENT: atraumatic, normocephalic Eye exam: PRESENT: conjunctiva pink, EOMI, PERRLA. ABSENT: scleral icterus Ear exam: PRESENT: normal external ear exam Mouth exam: PRESENT: moist, tongue midline Neck exam: PRESENT: full ROM. ABSENT: carotid bruit, JVD, lymphadenopathy, thyromegaly Respiratory exam: PRESENT: decreased breath sounds - at lung bases Cardiovascular exam: PRESENT: RRR, +S1, +S2. ABSENT: diastolic murmur, rubs, systolic murmur Pulses: PRESENT: normal dorsalis pedis pul, +2 pedal pulses bilateral Vascular exam: ABSENT: pallor GI/Abdominal exam: PRESENT: normal bowel sounds, soft. ABSENT: distended, guarding, mass, organolmegaly, rebound, tenderness Rectal exam: PRESENT: deferred Extremities exam: ABSENT: pedal edema Neurological exam: PRESENT: alert, awake, oriented to person, oriented to place, oriented to time, oriented to situation, CN II-XII grossly intact. ABSENT: motor sensory deficit Psychiatric exam: PRESENT: appropriate affect, normal mood. ABSENT: homicidal ideation, suicidal ideation Skin exam: PRESENT: dry, intact, warm. ABSENT: cyanosis, rash Results Laboratory Results: 08/31/19 11:25 08/31/19 11:25 08/31/19 11:25 Troponin I 0.023 NT-Pro-B Natriuret Pep 3300 H Impressions: Chest X-Ray 08/31/19 11:12 IMPRESSION: CHRONIC INTERSTITIAL CHANGES AND SCARRING IN THE LEFT APEX. FAINT DENSITY IN THE RIGHT LOWER LOBE, POSSIBLY EARLY PNEUMONIA. Assessment & Plan - Diagnosis (1) Pneumonia Qualifiers: Pneumonia type: due to unspecified organism Laterality: right Lung location: lower lobe of lung Qualified Code(s): J18.9 - Pneumonia, unspecified organism Is this a current diagnosis for this admission?: Yes Plan: See admitting attending physician orders for details about care plan. (2) Acute on chronic respiratory failure with hypoxia and hypercapnia Is this a current diagnosis for this admission?: Yes Plan: See admitting attending physician orders for details about care plan. (3) Hypertension Qualifiers: Hypertension type: essential hypertension Qualified Code(s): I10 - Essent ial (primary) hypertension Is this a current diagnosis for this admission?: Yes Plan: See admitting attending physician orders for details about care plan. (4) Pulmonary hypertension Is this a current diagnosis for this admission?: Yes Plan: See admitting attending physician orders for details about care plan. (5) Hypothyroid Qualifiers: Hypothyroidism type: unspecified Qualified Code(s): E03.9 - Hypothyroidism, unspecified Is this a current diagnosis for this admission?: Yes Plan: See admitting attending physician orders for details about care plan. (6) Obesity hypoventilation syndrome Is this a current diagnosis for this admission?: Yes Plan: See admitting attending physician orders for details about care plan. - Time Time Spent: 50 to 70 Minutes Medications reviewed and adjusted accordingly: Yes Anticipated discharge: Home with Homehealth Within: Other - Inpatient Certification Based on my medical assessment, after consideration of the patient's comorbidities, presenting symptoms, or acuity I expect that the services needed warrant INPATIENT care.: Yes I certify that my determination is in accordance with my understanding of Medicare's requirements for reasonable and necessary INPATIENT services [42 CFR 412.3e].: Yes Medical Necessity: Significant Comorbidiites Make Outpatient Treatment Too Risky, Need Close Monitoring Due to Risk of Patient Decompensation, Need For IV Fluids, Need For Continuous Telemetry Monitoring, Need for IV Antibiotics, Risk of Complication if Not Cared For in Hospital, Risk of Diagnosis Which Will Require Inpatient Eval/Care/Monitoring Post Hospital Care: D/C Cooker Sulfite Documentation - Plan Summary Plan Summary: See admitting attending physician orders for details about care plan.
--- NOTE | 2019-09-03 15:42 | PDOC PROGRESS REPORT ---
Subjective Progress Note for:: 09/03/19 Subjective:: Patient reported some improvement in her breathing. She reported hole in her heart and her oxygen saturation above 85% was excellent for her at home. She is poor historian regarding her heart condition except that she has a hole in her her. With her history of pulmonary hypertension, it is inferred that she may suffer from right to left shunt that will account for her persistent hypoxemia on ABG. Also, she is not compliant with CPAP usage at home. She reported ma intenance on nasal cannula supplemental oxygen. No fever or chills. No chest pain. She is currently on BiPAP support. Reason For Visit: LOBAR PNEUMONIA,ACUTE RESPIRATORY FAILURE WITH Physical Exam Vital Signs: Temp Pulse Resp BP Pulse Ox 97.8 F 65 18 132/62 H 95 09/03/19 11:39 09/03/19 13:58 09/03/19 11:39 09/03/19 11:39 09/03/19 11:39 Intake & Output 09/02/19 09/03/19 09/04/19 06:59 06:59 06:59 Intake Total 200 Output Total 400 Balance -400 200 Weight 105 kg General appearance: PRESENT: mild distress - on BiPAP support., obese Head exam: PRESENT: atraumatic, normocephalic Eye exam: PRESENT: conjunctiva pink. ABSENT: scleral icterus Ear exam: PRESENT: TM's normal bilaterally Mouth exam: PRESENT: moist Respiratory exam: PRESENT: decreased breath sounds - at lung bases Cardiovascular exam: PRESENT: RRR, +S1, +S2. ABSENT: diastolic murmur, rubs, systolic murmur Vascular exam: ABSENT: pallor GI/Abdominal exam: PRESENT: normal bowel sounds, soft. ABSENT: distended, guarding, mass, organolmegaly, rebound, tenderness Extremities exam: ABSENT: pedal edema Neurological exam: PRESENT: alert, awake, oriented to person, oriented to place, oriented to time, oriented to situation, CN II-XII grossly intact. ABSENT: motor sensory deficit Psychiatric exam: PRESENT: appropriate affect, normal mood. ABSENT: homicidal ideation, suicidal ideation Skin exam: PRESENT: dry, warm Results Laboratory Results: 09/03/19 04:12 09/03/19 04:12 09/03/19 09/03/19 09/03/19 04:12 04:12 06:32 WBC 6.6 RBC 3.78 Hgb 13.4 Hct 40.2 MCV 106 H MCH 35.4 H MCHC 33.3 RDW 15.1 H Plt Count 140 L Seg Neutrophils % 82.3 H Carbonic Acid 1.46 H HCO3/H2CO3 Ratio 17:1 ABG pH 7.34 L ABG pCO2 48.6 H ABG pO2 42.3 L ABG HCO3 25.6 H ABG O2 Saturation 74.6 L ABG Base Excess -0.8 FiO2 80% Sodium 138.0 Potassium 4.8 Chloride 106 Carbon Dioxide 26 Anion Gap 6 BUN 20 Creatinine 1.00 Est GFR ( Amer) > 60 Glucose 83 Calcium 8.4 Total Bilirubin 0.9 AST 23 Alkaline Phosphatase 69 Total Protein 7.4 Albumin 2.9 L Triglycerides 52 Cholesterol 126.48 LDL Cholesterol Direct 66 VLDL Cholesterol 10.0 HDL Cholesterol 37 L 09/03/19 10:39 WBC RBC Hgb Hct MCV MCH MCHC RDW Plt Count Seg Neutrophils % Carbonic Acid 1.55 H HCO3/H2CO3 Ratio 17:1 ABG pH 7.33 L ABG pCO2 51.4 H ABG pO2 46.1 L ABG HCO3 26.7 H ABG O2 Saturation 78.7 L ABG Base Excess 0.1 FiO2 60% Sodium Potassium Chloride Carbon Dioxide Anion Gap BUN Creatinine Est GFR ( Amer) Glucose Calcium Total Bilirubin AST Alkaline Phosphatase Total Protein Albumin Triglycerides Cholesterol LDL Cholesterol Direct VLDL Cholesterol HDL Cholesterol 08/31/19 11:25 Troponin I 0.023 NT-Pro-B Natriuret Pep 3300 H Impressions: Chest X-Ray 08/31/19 11:12 IMPRESSION: CHRONIC INTERSTITIAL CHANGES AND SCARRING IN THE LEFT APEX. FAINT DENSITY IN THE RIGHT LOWER LOBE, POSSIBLY EARLY PNEUMONIA. Assessment & Plan - Diagnosis (1) Pneumonia Qualifiers: Pneumonia type: due to unspecified organism Laterality: right Lung location: lower lobe of lung Qualified Code(s): J18.9 - Pneumonia, unspecified organism Is this a current diagnosis for this admission?: Yes (2) Acute on chronic respiratory failure with hypoxia and hypercapnia Is this a current diagnosis for this admission?: Yes (3) Hypertension Qualifiers: Hypertension type: essential hypertension Is this a current diagnosis for this admission?: Yes (4) Pulmonary hypertension Is this a current diagnosis for this admission?: Yes (5) Hypothyroid Qualifiers: Hypothyroidism type: unspecified Qualified Code(s): E03.9 - Hypothyroidism, unspecified Is this a current diagnosis for this admission?: Yes (6) Obesity hypoventilation syndrome Is this a current diagnosis for this admission?: Yes - Time Time Spent with patient: 25-34 minutes Level of Care: IMCU Medications reviewed and adjusted accordingly: Yes Anticipated discharge: Home with Homehealth Within: Other - Inpatient Certification Based on my medical assessment, after consideration of the patient's comorbidities, presenting symptoms, or acuity I expect that the services needed warrant INPATIENT care.: Yes I certify that my determination is in accordance with my understanding of Medicare's requirements for reasonable and necessary INPATIENT services [42 CFR 412.3e].: Yes Medical Necessity: Significant Comorbidiites Make Outpatient Treatment Too Risky, Need Close Monitoring Due to Risk of Patient Decompensation, Need For Continuous Telemetry Monitoring, Need for IV Antibiotics, Risk of Complication if Not Cared For in Hospital, Risk of Diagnosis Which Will Require Inpatient Eval/Care/Monitoring Post Hospital Care: D/C Parts 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 Maintain on BiPAP support. Obtain C BC with diff, CMP in AM.
[2019-09-03] MEDS: LORATADINE 10 MG TABLET PO SCH (17:26)
[2019-09-03] MEDS: AZITHROMYCIN 500 MG in DEXTROSE 5%-WATER 250 ML IV SCH (17:26)
[2019-09-03] MEDS: CEFTRIAXONE 1 GM/D5W RTU 1 GM/50 ML RTUPB IV SCH (17:27)
[2019-09-04] MEDS: SILDENAFIL CITRATE 20 MG TABLET PO SCH ×3 (05:24→21:40)
[2019-09-04] MEDS: LEVOTHYROXINE SODIUM 0.025 MG TABLET PO SCH (05:24)
[2019-09-04] MEDS: PANTOPRAZOLE SODIUM 40 MG TABLET.DR PO SCH (05:24)
--- NOTE | 2019-09-04 08:59 | PDOC PROGRESS REPORT ---
Subjective Progress Note for:: 09/04/19 Subjective:: Patient is came to the emergency department with a complaint of shortness of breath which patient is usually running in the 80%'s and a full liter nasal cannula all the time same at home In the emergency department patient was put on a BiPAP feel better give her some antibiotic patient initially transferred to the [facility] because patient have ongoing problem with ASD pulmonary hypertension's patient see the cardiology over there is to see Dr. Rossi here Because of the bad situations patient unable to go and patient started feeling better decided to admit here currently denied any complaints still required a BiPAP Adding to the patient's she always running low oxygenation's even required a 3 to 4 L nasal cannula Reason For Visit: LOBAR PNEUMONIA,ACUTE RESPIRATORY FAILURE WITH Physical Exam Vital Signs: Temp Pulse Resp BP Pulse Ox 98.2 F 66 24 H 132/51 H 82 L 09/04/19 03:29 09/04/19 03:29 09/04/19 04:20 09/04/19 03:29 09/04/19 04:20 Intake & Output 09/03/19 09/04/19 09/05/19 06:59 06:59 06:59 Intake Total 1140 Output Total 400 200 Balance -400 940 Weight 105 kg 105 kg General appearance: PRESENT: no acute distress, well-developed, well-nourished Head exam: PRESENT: atraumatic, normocephalic Eye exam: PRESENT: conjunctiva pink, EOMI, PERRLA. ABSENT: scleral icterus Ear exam: PRESENT: normal external ear exam Mouth exam: PRESENT: moist, tongue midline Neck exam: PRESENT: full ROM. ABSENT: carotid bruit, JVD, lymphadenopathy, thyromegaly Respiratory exam: PRESENT: clear to auscultation rafiq Cardiovascular exam: PRESENT: RRR. ABSENT: diastolic murmur, rubs, systolic murmur Pulses: PRESENT: normal dorsalis pedis pul, +2 pedal pulses bilateral Vascular exam: PRESENT: normal capillary refill GI/Abdominal exam: PRESENT: normal bowel sounds, soft. ABSENT: distended, guarding, mass, organolmegaly, rebound, tenderness Rectal exam: PRESENT: deferred Neurological exam: PRESENT: alert, awake, oriented to person, oriented to place, oriented to time, oriented to situation, CN II-XII grossly intact. ABSENT: motor sensory deficit Psychiatric exam: PRESENT: appropriate affect, normal mood. ABSENT: homicidal ideation, suicidal ideation Skin exam: PRESENT: dry, intact, warm. ABSENT: cyanosis, rash Results Laboratory Results: 09/03/19 04:12 09/03/19 04:12 09/03/19 10:39 Carbonic Acid 1.55 H HCO3/H2CO3 Ratio 17:1 ABG pH 7.33 L ABG pCO2 51.4 H ABG pO2 46.1 L ABG HCO3 26.7 H ABG O2 Saturation 78.7 L ABG Base Excess 0.1 FiO2 60% 08/31/19 11:25 Troponin I 0.023 NT-Pro-B Natriuret Pep 3300 H Impressions: Chest X-Ray 08/31/19 11:12 IMPRESSION: CHRONIC INTERSTITIAL CHANGES AND SCARRING IN THE LEFT APEX. FAINT DENSITY IN THE RIGHT LOWER LOBE, POSSIBLY EARLY PNEUMONIA. Assessment & Plan - Diagnosis (2) Acute and chronic respiratory failure Qualifiers: Respiratory failure complication: unspecified whether with hypoxia or hypercapnia Qualified Code(s): J96.20 - Acute and chronic respiratory failure, unspecified whether with hypoxia or hypercapnia Is this a current diagnosis for this admission?: Yes Plan: Currently continues use the BiPAP as we asked the Dr. Weber to further evaluate may be patients get a benefit for any trilogy machine at home (3) Congestive heart failure Qualifiers: Heart failure type: unspecified Heart failure chronicity: acute on chronic Qualified Code(s): I50.9 - Heart failure, unspecified Is this a current diagnosis for this admission?: Yes Plan: Continues the Lasix (4) Pneumonia Qualifiers: Pneumonia type: due to unspecified organism Laterality: right Lung location: lower lobe of lung Qualified Code(s): J18.9 - Pneumonia, unspecified organism Is this a current diagnosis for this admission?: Yes Plan: Repeat the chest x-ray is (5) CAD (coronary artery disease) Qualifiers: Coronary Disease-Associated Artery/Lesion type: unspecified vessel or lesion type Is this a current diagnosis for this admission?: Yes (6) Hypoxia Is this a current diagnosis for this admission?: Yes Plan: Patient with chronic hypoxia's continues the BiPAP (7) Obesity hypoventilation syndrome Is this a current diagnosis for this admission?: Yes (8) Atrial septal defect Is this a current diagnosis for this admission?: Yes Plan: We will get the medical record from the [place] consult the Dr. Rossi - Time Time Spent with patient: 25-34 minutes Level of Care: IMCU Medications reviewed and adjusted accordingly: Yes Anticipated discharge: Home with Homehealth Within: Other - Plan Summary Plan Summary: Continues to current medications repeat the chest x-ray
[2019-09-04] MEDS: ASPIRIN 81 MG TABLET, ENT COATED PO SCH (11:23)
[2019-09-04] MEDS: MAGNESIUM OXIDE 400 MG TABLET PO SCH (11:23)
[2019-09-04] MEDS: AMLODIPINE BESYLATE 5 MG TABLET PO SCH (11:23)
[2019-09-04] MEDS: OMEGA-3 ACID ETHYL ESTERS 1 GM CAPSULE PO SCH (11:23)
[2019-09-04] MEDS: ENOXAPARIN SODIUM INJ 40 MG/0.4 ML DISP.SYRIN SUBCUT SCH (11:24)
[2019-09-04] MEDS: AZITHROMYCIN 500 MG in DEXTROSE 5%-WATER 250 ML IV SCH (18:32)
[2019-09-04] MEDS: CEFTRIAXONE 1 GM/D5W RTU 1 GM/50 ML RTUPB IV SCH (18:32)
[2019-09-04] MEDS: LORATADINE 10 MG TABLET PO SCH (18:32)
--- NOTE | 2019-09-04 18:34 | EKG REPORT ---
SEVERITY:- ABNORMAL ECG - SINUS RHYTHM VENTRICULAR PREMATURE COMPLEX LEFT BUNDLE BRANCH BLOCK : Confirmed by: Lynda Rossi 04-Sep-2019 18:33:50
[2019-09-05 05:21] LABS: ABSOLUTE EOSINOPHILS # (AUTO) 0.3 10^3/uL (0.0-0.6); ABSOLUTE LYMPHOCYTES (AUTO) 0.9 10^3/uL (0.5-4.7); ABSOLUTE MONOCYTES (AUTO) 0.4 10^3/uL (0.1-1.4); ABSOLUTE NEUT (AUTO) 4.9 10^3/uL (1.7-8.2); BASOPHILS % (AUTO) 0.3 % (0-2); EOSINOPHILS % (AUTO) 4.5 % (0-6); HEMATOCRIT 39.5 % (36.0-47.0); HEMOGLOBIN 13.1 g/dL (12.0-15.5); LYMPHOCYTES % (AUTO) 13.6 % (13-45); MEAN CORPUSCULAR HEMOGLOBIN 35.2 pg (27.0-33.4); MEAN CORPUSCULAR HGB CONC 33.2 g/dL (32.0-36.0); MEAN CORPUSCULAR VOLUME 106 fl (80-97); MONOCYTES % (AUTO) 6.5 % (3-13); PLATELET COUNT 129 10^3/uL (150-450); RED BLOOD COUNT 3.73 10^6/uL (3.72-5.28); RED CELL DISTRIBUTION WIDTH 15.7 % (11.5-14.0); SEGMENTED NEUTROPHILS % (AUTO) 75.1 % (42-78); TOTAL CELLS COUNTED % (AUTO) 100 %; WHITE BLOOD COUNT 6.5 10^3/uL (4.0-10.5)
[2019-09-05 05:56] LABS: ANION GAP 8 (5-19); BLOOD UREA NITROGEN 21 mg/dL (7-20); CALCIUM 7.9 mg/dL (8.4-10.2); CARBON DIOXIDE 25 mmol/L (22-30); CHLORIDE 105 mmol/L (98-107); GLUCOSE 75 mg/dL (75-110); POTASSIUM 4.5 mmol/L (3.6-5.0)
[2019-09-05] MEDS: SILDENAFIL CITRATE 20 MG TABLET PO SCH ×3 (06:33→21:14)
[2019-09-05] MEDS: PANTOPRAZOLE SODIUM 40 MG TABLET.DR PO SCH (06:33)
[2019-09-05] MEDS: LEVOTHYROXINE SODIUM 0.025 MG TABLET PO SCH (06:33)
--- NOTE | 2019-09-05 08:48 | XCELERA REPORT ---
[address] [address] Transthoracic Echocardiogram Report Name: NELI BAEZ Age: 73 yrs Gender: Female : 1945 Patient Status: Inpatient Patient Location: [address] [place], [place] [address] Study Date: 09/04/2019 05:22 PM Height: 64 in Weight: 231 lb BSA: 2.1 m2 Procedure: A complete two-dimensional transthoracic echocardiogram was performed (2D, M-mode, spectral and color flow Doppler). The study was technically difficult with many images being suboptimal in quality. Reason For Study: CHF, Pulm HTN Ordering Physician: LYNDA SPICER Performed By: Yudith Demarco Interpretation Summary The left ventricular ejection fraction is within normal limits. Doppler measurements suggest pseudonormalized left ventricular relaxation, which is associated with grade II/IV or mild to moderate diastolic dysfunction There is mild concentric left ventricular hypertrophy. The left ventricle is grossly normal size. Wall motion cannot be accurately commented on, but no definite regional wall motion abnormalities noted. There is servere pulmonary hypertension by echo. The right ventricle is mild to moderately dilated. The right ventricle appears to be hypertrophied Best estimated right ventricular systolic pressure is elevated at >60mmHg. The right atrium is mild to moderately dilated. The left atrium is mildly dilated. There is a trace to mild amount of mitral regurgitation There is no mitral valve stenosis. There is no aortic valve stenosis No aortic regurgitation is present. There is a mild amount of tricuspid regurgitation Minimal pericardial effusion. MMode/2D Measurements & Calculations RVDd: 2.2 cm LVIDd: 5.6 cm FS: 40.6 % Ao root diam: 2.3 cm IVSd: 1.1 cm LVIDs: 3.3 cm EDV(Teich): 155.6 ml Ao root area: 4.3 cm2 LVPWd: 1.2 cm ESV(Teich): 45.7 ml LA dimension: 4.0 cm EF(Teich): 70.7 % Doppler Measurements & Calculations MV E max iraida: MV P1/2t max iraida: Ao V2 max: LV V1 max P.6 cm/sec 69.0 cm/sec 173.7 cm/sec 4.6 mmHg MV A max iraida: MV P1/2t: 65.4 msec Ao max PG: LV V1 max: 114.5 cm/sec MVA(P1/2t): 3.4 cm2 12.1 mmHg 106.7 cm/sec MV E/A: 0.59 MV dec slope: 309.1 cm/sec2 MV dec time: 0.31 sec PA V2 max: PI end-d iraida: TR max iraida: MV P1/2t-pr_phl: 82.9 cm/sec 111.3 cm/sec 411.3 cm/sec 65.4 msec PA max P.8 mmHg TR max P.7 mmHg Left Ventricle The left ventricle is grossly normal size. There is mild concentric left ventricular hypertrophy. The left ventricular ejection fraction is within normal limits. Doppler measurements suggest pseudonormalized left ventricular relaxation, which is associated with grade II/IV or mild to moderate diastolic dysfunction. Wall motion cannot be accurately commented on, but no definite regional wall motion abnormalities noted. Right Ventricle The right ventricle is mild to moderately dilated. The right ventricle appears to be hypertrophied. The right ventricular systolic function is mildly reduced. Atria The right atrium is mild to moderately dilated. The left atrium is mildly dilated. Interarterial septum not well visualized and not well dopplered. Cannot comment on ASD/PFO presence. Mitral Valve The mitral valve is grossly normal. There is no mitral valve stenosis. There is a trace to mild amount of mitral regurgitation. Aortic Valve The aortic valve opens well. There is no aortic valve stenosis. No aortic regurgitation is present. Tricuspid Valve The tricuspid valve is not well visualized secondary to technical limitations. There is no tricuspid stenosis. There is a mild amount of tricuspid regurgitation. There is servere pulmonary hypertension by echo. Best estimated right ventricular systolic pressure is elevated at >60mmHg. Pulmonic Valve The pulmonic valve is not well visualized. Great Vessels The aortic root is not well visualized but is probably normal size. The inferior vena cava was not well visualized. Effusions Minimal pericardial effusion. : LYNDA SPICER Shyamal
--- NOTE | 2019-09-05 08:55 | Progress Note ---
Provider Note Provider Note: Patient previous records reviewed. 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 This is based on the MRI report from [facility]. The surgeon there did not feel patient would be a candidate for surgery to fix the atrial septal defect however it may be worth to get a second opinion. At this point recommend that patient be kept very dry so much so that the right atrial pressure is kept very low. This will reduce any right to left shunt and hopefully well improve oxygenation by reducing shunt. Unfortunately patient is on PDE 5 inhibitor therefore nitrates cannot be used. Recommend pulmonary evaluation and consultation and referral back to [facility] if needed.
[2019-09-05] MEDS: MAGNESIUM OXIDE 400 MG TABLET PO SCH (09:30)
[2019-09-05] MEDS: ASPIRIN 81 MG TABLET, ENT COATED PO SCH (09:31)
[2019-09-05] MEDS: AMLODIPINE BESYLATE 5 MG TABLET PO SCH (09:31)
[2019-09-05] MEDS: ENOXAPARIN SODIUM INJ 40 MG/0.4 ML DISP.SYRIN SUBCUT SCH (09:31)
[2019-09-05] MEDS: OMEGA-3 ACID ETHYL ESTERS 1 GM CAPSULE PO SCH (09:31)
--- NOTE | 2019-09-05 09:52 | PDOC PROGRESS REPORT ---
Subjective Progress Note for:: 09/05/19 Subjective:: Patient is currently doing fair Patient still required a BiPAP and O2 sat is running 80 to 85%'s Cussed with the Dr. Rossi and suggest to start the patient on a Lasix 40 mg p.o. twice a day and he will talk to the [facility]ology with the patient's may be get a benefit for any ASD surgery Patient already evaluated in the [facility] in the past and the patient at this point refused for the surgery but again discussed with the patient today and he she will think about it She is otherwise denied any chest pain no cough no congestions Reason For Visit: LOBAR PNEUMONIA,ACUTE RESPIRATORY FAILURE WITH Physical Exam Vital Signs: Temp Pulse Resp BP Pulse Ox 98.4 F 75 18 136/59 H 85 L 09/05/19 07:45 09/05/19 07:45 09/05/19 07:45 09/05/19 07:45 09/05/19 07:45 Intake & Output 09/04/19 09/05/19 09/06/19 06:59 06:59 06:59 Intake Total 1140 300 Output Total 200 300 Balance 940 0 Weight 105 kg 106.1 kg General appearance: PRESENT: no acute distress, well-developed, well-nourished Head exam: PRESENT: atraumatic, normocephalic Eye exam: PRESENT: conjunctiva pink, EOMI, PERRLA. ABSENT: scleral icterus Ear exam: PRESENT: normal external ear exam Mouth exam: PRESENT: moist, tongue midline Neck exam: PRESENT: full ROM. ABSENT: carotid bruit, JVD, lymphadenopathy, thyromegaly Respiratory exam: PRESENT: decreased breath sounds Cardiovascular exam: PRESENT: RRR. ABSENT: diastolic murmur, rubs, systolic murmur Pulses: PRESENT: normal dorsalis pedis pul, +2 pedal pulses bilateral Vascular exam: PRESENT: normal capillary refill GI/Abdominal exam: PRESENT: normal bowel sounds, soft. ABSENT: distended, guarding, mass, organolmegaly, rebound, tenderness Rectal exam: PRESENT: deferred Neurological exam: PRESENT: alert, awake, oriented to person, oriented to place, oriented to time, oriented to situation, CN II-XII grossly intact. ABSENT: motor sensory deficit Psychiatric exam: PRESENT: appropriate affect, normal mood. ABSENT: homicidal ideation, suicidal ideation Skin exam: PRESENT: dry, intact, warm. ABSENT: cyanosis, rash Results Laboratory Results: 09/05/19 04:19 09/05/19 04:19 09/05/19 09/05/19 04:19 04:19 WBC 6.5 RBC 3.73 Hgb 13.1 Hct 39.5 MCV 106 H MCH 35.2 H MCHC 33.2 RDW 15.7 H Plt Count 129 L Seg Neutrophils % 75.1 Sodium 137.9 Potassium 4.5 Chloride 105 Carbon Dioxide 25 Anion Gap 8 BUN 21 H Creatinine 1.24 Est GFR ( Amer) 52 L Glucose 75 Calcium 7.9 L 08/31/19 11:25 Troponin I 0.023 NT-Pro-B Natriuret Pep 3300 H Impressions: Chest X-Ray 08/31/19 11:12 IMPRESSION: CHRONIC INTERSTITIAL CHANGES AND SCARRING IN THE LEFT APEX. FAINT DENSITY IN THE RIGHT LOWER LOBE, POSSIBLY EARLY PNEUMONIA. Assessment & Plan - Diagnosis (1) Pulmonary hypertension Is this a current diagnosis for this admission?: Yes (2) Acute and chronic respiratory failure Qualifiers: Respiratory failure complication: unspecified whether with hypoxia or hypercapnia Qualified Code(s): J96.20 - Acute and chronic respiratory failure, unspecified whether with hypoxia or hypercapnia Is this a current diagnosis for this admission?: Yes (3) Congestive heart failure Qualifiers: Heart failure type: unspecified Heart failure chronicity: acute on chronic Qualified Code(s): I50.9 - Heart failure, unspecified Is this a current diagnosis for this admission?: Yes (4) Pneumonia Qualifiers: Pneumonia type: due to unspecified organism Laterality: right Lung location: lower lobe of lung Qualified Code(s): J18.9 - Pneumonia, unspecified organism Is this a current diagnosis for this admission?: Yes (5) CAD (coronary artery disease) Qualifiers: Coronary Disease-Associated Artery/Lesion type: unspecified vessel or lesion type Is this a current diagnosis for this admission?: Yes (6) Hypoxia Is this a current diagnosis for this admission?: Yes (7) Obesity hypoventilation syndrome Is this a current diagnosis for this admission?: Yes (8) Atrial septal defect Is this a current diagnosis for this admission?: Yes - Time Time Spent with patient: 25-34 minutes Level of Care: IMCU Medications reviewed and adjusted accordingly: Yes Anticipated discharge: Other Within: Other - Plan Summary Plan Summary: As per discussed with the Dr. Rossi start the patient on Lasix 40 mg twice a day and add the Spironolactone tomorrow continues the current medications we will get the portable chest x-ray ABG continues on the BiPAP will wait for the pulmonary evaluations
[2019-09-05] MEDS: FUROSEMIDE 40 MG TABLET PO SCH ×2 (11:00→17:52)
[2019-09-05 16:45] LABS: ARTERIAL BLOOD FIO2 60%; ARTERIAL BLOOD H2CO3 1.57 mmol/L (1.05-1.35); ARTERIAL BLOOD HCO3 27.7 mmol/L (20-24); ARTERIAL BLOOD O2 SATURATION 60.4 % (94-98); ARTERIAL BLOOD PCO2 52.3 mmHg (35-45); ARTERIAL BLOOD PH 7.34 (7.35-7.45); ARTERIAL BLOOD TOTAL CO2 29.3 mmol/L (21-25)
[2019-09-05 16:47] LABS: ARTERIAL BLOOD PO2 33.7 mmHg (80-100)
[2019-09-05] MEDS: LORATADINE 10 MG TABLET PO SCH (17:52)
[2019-09-05] MEDS: CEFTRIAXONE 1 GM/D5W RTU 1 GM/50 ML RTUPB IV SCH (17:53)
[2019-09-05] MEDS ORDERED: AZITHROMYCIN 250 MG TABLET PO SCH (18:00)
--- NOTE | 2019-09-05 18:50 | EKG REPORT ---
SEVERITY:- ABNORMAL ECG - SINUS RHYTHM ATRIAL PREMATURE COMPLEX LEFT BUNDLE BRANCH BLOCK : Confirmed by: Lynda Rossi 05-Sep-2019 18:48:39
[2019-09-05 19:16] LABS: ARTERIAL BLOOD BASE EXCESS -0.1 mmol/L; ARTERIAL BLOOD H2CO3 1.37 mmol/L (1.05-1.35); ARTERIAL BLOOD HCO3 25.7 mmol/L (20-24); ARTERIAL BLOOD O2 SATURATION 80.1 % (94-98); ARTERIAL BLOOD PCO2 45.6 mmHg (35-45); ARTERIAL BLOOD PH 7.37 (7.35-7.45); ARTERIAL BLOOD PO2 45.7 mmHg (80-100); ARTERIAL BLOOD TOTAL CO2 27.1 mmol/L (21-25)
[2019-09-05 19:17] LABS: ARTERIAL BLOOD FIO2 60%
--- NOTE | 2019-09-05 19:32 | RADIOLOGY REPORT (SQ) ---
EXAM DESCRIPTION: CHEST SINGLE VIEW COMPLETED DATE/TIME: 09/05/2019 7:07 pm REASON FOR STUDY: RESPIRATORY DISTRESS COMPARISON: 08/31/2019 EXAM PARAMETERS: NUMBER OF VIEWS: One view. TECHNIQUE: Single frontal radiographic view of the chest acquired. RADIATION DOSE: NA LIMITATIONS: None. FINDINGS: LUNGS AND PLEURA: There is improved aeration of the right lung base. Somewhat linear opac ification in the left upper lobe. There is still mild opacification medially in the right base. MEDIASTINUM AND HILAR STRUCTURES: No masses. Contour normal. HEART AND VASCULAR STRUCTURES: Heart size is borderline. There is no kraig pulmonary edema. BONES: No acute findings. HARDWARE: None in the chest. OTHER: No other significant finding. IMPRESSION: Borderline cardiomegaly without kraig pulmonary edema. Cannot exclude atelectatic roblero es in the left upper lobe. Cannot exclude pneumonia in the right lower lobe medially. TECHNICAL DOCUMENTATION: JOB ID: [id number] 2010 [employer]- All Rights Reserved Reading location - IP/workstation name: [email or web address]
--- NOTE | 2019-09-05 19:35 | PDOC PROGRESS REPORT ---
Subjective Progress Note for:: 09/05/19 Subjective:: Patient was seen on morning rounds. She is still needing high flow oxygen to maintain oxygenation. Patient however denied any chest pains. She has shortness of breath. Patient previous hospitalization records were reviewed. In addition I had a conversation with chief of cardiology at [facility] where she was evaluated in the past. Dr. Zimmerman was sent information about this patient. He is going to look up the studies himself and talk to the cardiothoracic surgeon. He is also going to talk with the automobile salesman asked to see if anything can be done to help this lady. Patient herself is agreeable to be transferred to [place] if need be. It seems to me that she had declined surgical option in the past saying that she was 72 years old but may be more amenable now. Treatment options were discussed. It is felt that our main option would be to reduce right atrial pressure. In this regard diuretics are the main option. We should avoid any arterial vasodilator. Any other efforts to reduce pulmonary hypertension will help. Reason For Visit: LOBAR PNEUMONIA,ACUTE RESPIRATORY FAILURE WITH Physical Exam Vital Signs: Temp Pulse Resp BP Pulse Ox 98.4 F 72 19 136/59 H 83 L 09/05/19 07:45 09/05/19 14:00 09/05/19 15:52 09/05/19 07:45 09/05/19 15:52 Intake & Output 09/04/19 09/05/19 09/06/19 06:59 06:59 06:59 Intake Total 1140 300 650 Output Total 200 300 300 Balance 940 0 350 Weight 105 kg 106.1 kg General appearance: PRESENT: no acute distress, well-developed, well-nourished Head exam: PRESENT: atraumatic, normocephalic Eye exam: PRESENT: conjunctiva pink, EOMI, PERRLA. ABSENT: scleral icterus Ear exam: PRESENT: normal external ear exam Mouth exam: PRESENT: moist, tongue midline Neck exam: ABSENT: carotid bruit, JVD, lymphadenopathy, thyromegaly Respiratory exam: PRESENT: clear to auscultation rafiq. ABSENT: rales, rhonchi, wheezes Cardiovascular exam: PRESENT: RRR. ABSENT: diastolic murmur, rubs, systolic murmur Pulses: PRESENT: normal dorsalis pedis pul Vascular exam: PRESENT: normal capillary refill GI/Abdominal exam: PRESENT: normal bowel sounds, soft. ABSENT: distended, guarding, mass, organolmegaly, rebound, tenderness Rectal exam: PRESENT: deferred Extremities exam: PRESENT: full ROM, +1 edema. ABSENT: calf tenderness, clubbing, pedal edema Neurological exam: PRESENT: alert, awake, oriented to person, oriented to place, oriented to time, oriented to situation, CN II-XII grossly intact. ABSENT: motor sensory deficit Psychiatric exam: PRESENT: appropriate affect, normal mood. ABSENT: homicidal ideation, suicidal ideation Skin exam: PRESENT: dry, intact, warm. ABSENT: cyanosis, rash Results Laboratory Results: 09/05/19 04:19 09/05/19 04:19 09/05/19 09/05/19 09/05/19 04: 04:19 16:25 WBC 6.5 RBC 3.73 Hgb 13.1 Hct 39.5 MCV 106 H MCH 35.2 H MCHC 33.2 RDW 15.7 H Plt Count 129 L Seg Neutrophils % 75.1 Carbonic Acid 1.57 H HCO3/H2CO3 Ratio 17:1 ABG pH 7.34 L ABG pCO2 52.3 H ABG pO2 33.7 L* ABG HCO3 27.7 H ABG O2 Saturation 60.4 L ABG Base Excess 1.0 FiO2 60% Sodium 137.9 Potassium 4.5 Chloride 105 Carbon Dioxide 25 Anion Gap 8 BUN 21 H Creatinine 1.24 Est GFR ( Amer) 52 L Glucose 75 Calcium 7.9 L 09/05/19 18:52 WBC RBC Hgb Hct MCV MCH MCHC RDW Plt Count Seg Neutrophils % Carbonic Acid 1.37 H HCO3/H2CO3 Ratio 18:1 ABG pH 7.37 ABG pCO2 45.6 H ABG pO2 45.7 L ABG HCO3 25.7 H ABG O2 Saturation 80.1 L ABG Base Excess -0.1 FiO2 60% Sodium Potassium Chloride Carbon Dioxide Anion Gap BUN Creatinine Est GFR ( Amer) Glucose Calcium 08/31/19 15:26 Blood Blood Culture - Final NO GROWTH IN 5 DAYS 08/31/19 11:25 Blood Blood Culture - Final NO GROWTH IN 5 DAYS 08/31/19 11:25 Troponin I 0.023 NT-Pro-B Natriuret Pep 3300 H Assessment & Plan - Diagnosis (1) Acute and chronic respiratory failure Qualifiers: Respiratory failure complication: unspecified whether with hypoxia or hyp ercapnia Qualified Code(s): J96.20 - Acute and chronic respiratory failure, unspecified whether with hypoxia or hypercapnia Is this a current diagnosis for this admission?: Yes (2) Atrial septal defect Is this a current diagnosis for this admission?: Yes (3) Pulmonary hypertension Is this a current diagnosis for this admission?: Yes (4) Hypertension Qualifiers: Hypertension type: essential hypertension Qualified Code(s): I10 - Essential (primary) hypertension Is this a current diagnosis for this admission?: Yes - Notes Notes: As noted in HPI section, recommend diuretic therapy. Patient would do better being on the dehydrated side. Awaiting to hear from Dr. Zimmerman. Is likely to get back to me tomorrow. If patient deteriorates, consider transfer to [facility] where she has been evaluated before. Discussed with Dr. Millan. Patient is quite complicated.
[2019-09-06 04:58] LABS: ABSOLUTE EOSINOPHILS # (AUTO) 0.2 10^3/uL (0.0-0.6); ABSOLUTE LYMPHOCYTES (AUTO) 0.7 10^3/uL (0.5-4.7); ABSOLUTE MONOCYTES (AUTO) 0.5 10^3/uL (0.1-1.4); ABSOLUTE NEUT (AUTO) 5.2 10^3/uL (1.7-8.2); BASOPHILS % (AUTO) 0.4 % (0-2); EOSINOPHILS % (AUTO) 2.9 % (0-6); HEMATOCRIT 40.1 % (36.0-47.0); HEMOGLOBIN 13.5 g/dL (12.0-15.5); LYMPHOCYTES % (AUTO) 10.9 % (13-45); MEAN CORPUSCULAR HEMOGLOBIN 35.6 pg (27.0-33.4); MEAN CORPUSCULAR HGB CONC 33.8 g/dL (32.0-36.0); MEAN CORPUSCULAR VOLUME 105 fl (80-97); PLATELET COUNT 133 10^3/uL (150-450); RED CELL DISTRIBUTION WIDTH 15.4 % (11.5-14.0); SEGMENTED NEUTROPHILS % (AUTO) 78.8 % (42-78); TOTAL CELLS COUNTED % (AUTO) 100 %; WHITE BLOOD COUNT 6.6 10^3/uL (4.0-10.5)
[2019-09-06 05:12] LABS: ANION GAP 8 (5-19); BLOOD UREA NITROGEN 20 mg/dL (7-20); CALCIUM 8.4 mg/dL (8.4-10.2); CARBON DIOXIDE 29 mmol/L (22-30); CHLORIDE 101 mmol/L (98-107); GLUCOSE 78 mg/dL (75-110); POTASSIUM 4.3 mmol/L (3.6-5.0)
[2019-09-06] MEDS: LEVOTHYROXINE SODIUM 0.025 MG TABLET PO SCH (05:45)
[2019-09-06] MEDS: PANTOPRAZOLE SODIUM 40 MG TABLET.DR PO SCH (05:45)
[2019-09-06] MEDS: SILDENAFIL CITRATE 20 MG TABLET PO SCH ×2 (05:45→13:47)
[2019-09-06] MEDS ORDERED: IPRATROPIUM/ALBUTEROL 0.5-2.5 MG/3 ML AMPUL NEB PRN (09:06)
--- NOTE | 2019-09-06 09:12 | PDOC TRANSFER SUMMARY ---
General Admission Date/PCP: 09/02/19 17:06 MAGDI REYES MD Admission Date: 08/31/19 Transfer Date: 09/06/19 Accepting Facility: [facility] Resuscitation Status: Full Code - Transfer Diagnosis (1) Pulmonary hypertension Is this a current diagnosis for this admission?: Yes (2) Acute and chronic respiratory failure Is this a current diagnosis for this admission?: Yes (3) Congestive heart failure Is this a current diagnosis for this admission?: Yes (4) Pneumonia Is this a current diagnosis for this admission?: Yes (5) CAD (coronary artery disease) Is this a current diagnosis for this admission?: Yes (6) Hypoxia Is this a current diagnosis for this admission?: Yes (7) Obesity hypoventilation syndrome Is this a current diagnosis for this admission?: Yes (8) Atrial septal defect Is this a current diagnosis for this admission?: Yes - Transfer Medications Home Medications: Fluticasone Propionate [Flonase Nasal [place] 50 Mcg/[place] 16 gm] 1 spray NAREB DAILY 11/02/17 Levocetirizine Dihydrochloride [Xyzal] 5 mg PO QPM 11/02/17 Levothyroxine Sodium [Synthroid 0.025 mg Tablet] 0.025 mg PO Q6AM 11/02/17 Albuterol Sulfate [Proair Hfa Inhalation Aerosol 8.5 gm Mdi] 2 puff IH Q6HP PRN 09/01/19 Amlodipine Besylate [Norvasc 5 mg Tablet] 5 mg PO DAILY 09/01/19 Aspirin [Ecotrin 81 mg EC Tablet] 81 mg PO DAILY 09/01/19 Magnesium Oxide [Mag-Ox 400 mg Tablet] 400 mg PO DAILY 09/01/19 Olopatadine HCl [Patanol 0.1% Oph Soln 5 Ml Bottle] 1 drop OU Q12HP PRN 09/01/19 Kerrick-3 Fatty Acids/Fish Oil [Kerrick 3 Fish Oil Softgel] 1 each PO DAILY 09/01/19 Sildenafil Citrate 20 mg PO Q8 09/01/19 Transfer Medications: Current Medications Acetaminophen (Tylenol 325 Mg Tablet) 650 mg PO Q8HP PRN PRN Reason: FOR PAIN Stop: 10/03/19 09:16 Albuterol/Ipratropium (Duoneb 3 Ml Ampul) 3 ml NEB RTQ6HP PRN PRN Reason: SHORTNESS OF BREATH Stop: 10/06/19 09:05 Amlodipine Besylate (Norvasc 5 Mg Tablet) 5 mg PO DAILY SAM Stop: 10/03/19 09:59 Last Admin: 09/05/19 09:31 Dose: 5 mg Documented by: Aspirin (Ecotrin 81 Mg Ec Tablet) 81 mg PO DAILY SAM Stop: 10/03/19 09:59 Last Admin: 09/05/19 09:31 Dose: 81 mg Documented by: Azithromycin (Zithromax 250 Mg Tablet) 500 mg PO QPM SAM Stop: 09/10/19 17:59 Last Admin: 09/05/19 17:53 Dose: 500 mg Documented by: Enoxaparin Sodium (Lovenox Inj 40 Mg/0.4 Ml Disp.Syrin) 40 mg SUBCUT DAILY SAM Stop: 10/03/19 09:59 Last Admin: 09/05/19 09:31 Dose: 40 mg Documented by: Furosemide (Lasix 40 Mg Tablet) 40 mg PO BID SAM Stop: 10/05/19 09:59 Last Admin: 09/05/19 17:52 Dose: 40 mg Documented by: Ceftriaxone Sodium/Dextrose (Rocephin Rtu 1 Gm/D5w 50 Ml Premix) 1 gm in 50 mls @ 100 mls/hr IV QPM SAM Stop: 09/10/19 17:59 Last Infusion: 09/05/19 22:15 Dose: Infused Documented by: Levothyroxine Sodium (Synthroid 0.025 Mg Tablet) 0.025 mg PO Q6AM SAM Stop: 10/03/19 05:59 Last Admin: 09/06/19 05:45 Dose: 0.025 mg Documented by: Loratadine (Claritin 10 Mg Tablet) 10 mg PO QPM SAM Stop: 10/03/19 17:59 Last Admin: 09/05/19 17:52 Dose: 10 mg Documented by: Magnesium Oxide (Mag-Ox 400 Mg Tablet) 400 mg PO DAILY SAM Stop: 10/03/19 09:59 Last Admin: 09/05/19 09:30 Dose: 400 mg Documented by: Olopatadine HCl (Patanol 0.1% Oph Soln 5 Ml) 1 drop OU Q12HP PRN PRN Reason: allergy symptoms Stop: 10/02/19 19:44 Ahgzy-4-Wmkm Ethyl Esters (Lovaza 1 Gm Capsule) 1 gm PO DAILY SAM Stop: 10/03/19 09:59 Last Admin: 09/05/19 09:31 Dose: 1 gm Documented by: Pantoprazole Sodium (Protonix [address] Tablet) 40 mg PO Q6AM SAM Stop: 10/03/19 05:59 Last Admin: 09/06/19 05:45 Dose: 40 mg Documented by: Sildenafil Citrate (Revatio 20 Mg Tablet) 20 mg PO Q8 SAM Stop: 10/02/19 21:59 Last Admin: 09/06/19 05:45 Dose: 20 mg Documented by: - Allergies Allergies/Adverse Reactions: Sulfa (Sulfonamide Antibiotics) Allergy (Verified 05/26/16 11:36) - Diet/Activity Discharge Diet: Cardiac Hospital Course Hospital Course: This is a 73-year-old female basically admitting in the hospitals for the hypoxia and initially patient was tried to transfer to the [facility] As per discussed myself to the ER physicians because patients needs to go to the tertiary center but unable to get the bed and somehow the ER physicians in the weekends admitting the patient here in my service We will try the patient's to consult the cardiology and pulmonary patients put on the BiPAP and high flow oxygen's patient oxygen saturation is still running low 80% and according to the patient she always runs low 80%'s Patient seen by the cardiology at [facility] for ASD issues and the patient's initially in the past do not want to do any surgical interventions and I think the [facility] told the nothing much they can offer at that point but now the patient is willing to go for any surgical interventions Discussed with the local pulmonary Dr. Salinas and he suggest I do not think so anything can be offer much the pulmonary standpoint even intubated nothing much can be a difference and discussed with the cardiology Dr. Rossi and he saw the patient had a echocardiogram done and he talk to the cardiac connections from the [facility] and patient's transfer and discussed with the patient and the family patient understand very well willing to go and further evaluate Patient's otherwise currently high flow oxygen's running 85 which is a chronic hypoxia currently all stable on transfer Physical Exam Vital Signs: Temp Pulse Resp BP Pulse Ox 98.5 F 76 17 148/61 H 89 L 09/06/19 08:16 09/06/19 08:16 09/06/19 08:16 09/06/19 08:16 09/06/19 08:16 Intake & Output 09/05/19 09/06/19 09/07/19 06:59 06:59 06:59 Intake Total 300 700 Output Total 300 1150 Balance 0 -450 Weight 106.1 kg 104.7 kg General appearance: PRESENT: no acute distress, well-developed, well-nourished Head exam: PRESENT: atraumatic, normocephalic Eye exam: PRESENT: conjunctiva pink, EOMI, PERRLA. ABSENT: scleral icterus Ear exam: PRESENT: normal external ear exam Mouth exam: PRESENT: moist, tongue midline Neck exam: ABSENT: carotid bruit, JVD, lymphadenopathy, thyromegaly Respiratory exam: PRESENT: clear to auscultation rafiq. ABSENT: rales, rhonchi, wheezes Cardiovascular exam: PRESENT: RRR. ABSENT: diastolic murmur, rubs, systolic murmur Pulses: PRESENT: normal dorsalis pedis pul Vascular exam: PRESENT: normal capillary refill GI/Abdominal exam: PRESENT: normal bowel sounds, soft. ABSENT: distended, guarding, mass, organolmegaly, rebound, tenderness Rectal exam: PRESENT: deferred Extremities exam: PRESENT: full ROM. ABSENT: calf tenderness, clubbing, pedal edema Neurological exam: PRESENT: alert, awake, oriented to person, oriented to place, oriented to time, oriented to situation, CN II-XII grossly intact. ABSENT: motor sensory deficit Psychiatric exam: PRESENT: appropriate affect, normal mood. ABSENT: homicidal ideation, suicidal ideation Skin exam: PRESENT: dry, intact, warm. ABSENT: cyanosis, rash Results Laboratory Results: 09/06/19 03:53 09/06/19 03:53 09/05/19 09/05/19 09/06/19 16:25 18:52 03:53 WBC RBC Hgb Hct MCV MCH MCHC RDW Plt Count Seg Neutrophils % Carbonic Acid 1.57 H 1.37 H HCO3/H2CO3 Ratio 17:1 18:1 ABG pH 7.34 L 7.37 ABG pCO2 52.3 H 45.6 H ABG pO2 33.7 L* 45.7 L ABG HCO3 27.7 H 25.7 H ABG O2 Saturation 60.4 L 80.1 L ABG Base Excess 1.0 -0.1 FiO2 60% 60% Sodium 138.1 Potassium 4.3 Chloride 101 Carbon Dioxide 29 Anion Gap 8 BUN 20 Creatinine 1.14 Est GFR ( Amer) 57 L Glucose 78 Calcium 8.4 09/06/19 03:53 WBC 6.6 RBC 3.80 Hgb 13.5 Hct 40.1 MCV 105 H MCH 35.6 H MCHC 33.8 RDW 15.4 H Plt Count 133 L Seg Neutrophils % 78.8 H Carbonic Acid HCO3/H2CO3 Ratio ABG pH ABG pCO2 ABG pO2 ABG HCO3 ABG O2 Saturation ABG Base Excess FiO2 Sodium Potassium Chloride Carbon Dioxide Anion Gap BUN Creatinine Est GFR ( Amer) Glucose Calcium 08/31/19 15:26 Blood Blood Culture - Final NO GROWTH IN 5 DAYS 08/31/19 11:25 Blood Blood Culture - Final NO GROWTH IN 5 DAYS 08/31/19 11:25 Troponin I 0.023 NT-Pro-B Natriuret Pep 3300 H Impressions: Chest X-Ray 09/05/19 18:41 IMPRESSION: Borderline cardiomegaly without kraig pulmonary edema. Cannot exclude atelectatic changes in the left upper lobe. Cannot exclude pneumonia in the right lower lobe medially. Plan Time Spent: Greater than 30 Minutes - Transfer the patient's to the [facility] for further evaluation and cardiac connections
[2019-09-06] MEDS: ENOXAPARIN SODIUM INJ 40 MG/0.4 ML DISP.SYRIN SUBCUT SCH (10:17)
[2019-09-06] MEDS: FUROSEMIDE 40 MG TABLET PO SCH (10:19)
[2019-09-06] MEDS: ASPIRIN 81 MG TABLET, ENT COATED PO SCH (10:19)
[2019-09-06] MEDS: MAGNESIUM OXIDE 400 MG TABLET PO SCH (10:19)
[2019-09-06] MEDS: AMLODIPINE BESYLATE 5 MG TABLET PO SCH (10:19)
[2019-09-06] MEDS: OMEGA-3 ACID ETHYL ESTERS 1 GM CAPSULE PO SCH (10:20)
[2019-09-06 15:47] VITALS: BP 147/88
--- NOTE | 2019-09-06 22:46 | PDOC PROGRESS REPORT ---
Subjective Progress Note for:: 09/06/19 Subjective:: Patient was seen on morning rounds. She is still needing high flow oxygen to maintain oxygenation. Patient however denied any chest pains. She has shortness of breath. Patient previous hospitalization records were reviewed. In addition I had a conversation with chief of cardiology at [facility] [employer] where she was evaluated in the past. Dr. Zimmerman was sent information about this patient. He is going to look up the studies himself and talk to the cardiothoracic surgeon. He is also going to talk with the loan closer asked to see if anything can be done to help this lady. Patient herself is agreeable to be transferred to [place] if need be. It seems to me that she had declined surgical option in the past saying that she was 72 years old but may be more amenable now. Treatment options were discussed. It is felt that our main option would be to reduce right atrial pressure. In this regard diuretics are the main option. We should avoid any arterial vasodilator. Any other efforts to reduce pulmonary hypertension will help. 09/06/2019: Patient was seen at lunchtime. She was noted to be comfortable. In the morning I had talked with Dr. Zimmerman and subsequently also talked with Dr. Bains. He kindly agreed to transfer the patient. Patient is agreeable for transfer. Previously had talked with Dr. Millan, informed him of impending transfer. Dr. Millan dictated the discharge summary. Patient understands that she may or may not be offered surgery. Reason For Visit: LOBAR PNEUMONIA,ACUTE RESPIRATORY FAILURE WITH Physical Exam Vital Signs: Temp Pulse Resp BP Pulse Ox 98.1 F 104 H 19 147/88 H 88 L 09/06/19 15:40 09/06/19 15:40 09/06/19 15:40 09/06/19 15:40 09/06/19 15:40 Intake & Output 09/05/19 09/06/19 09/07/19 06:59 06:59 06:59 Intake Total 300 700 480 Output Total 300 1150 400 Balance 0 -450 80 Weight 106.1 kg 104.7 kg Exam: GENERAL: well-nourished and in no acute distress. Alert and oriented x3 HEAD: Atraumatic, normocephalic. EYES: DARWIN, sclera anicteric, conjunctiva are normal. ENT: Moist mucous membranes. No oral ulcerations or bleeding gums noted. No obvious ear, nose or throat abnormalities noted. NECK: supple without lymphadenopathy. Trachea is central. No cervical or axillary lymphadenopathy noted. Carotids are 2+, JVD WNL LUNGS: Breath sounds clear bilaterally. No wheezes rales or rhonchi noted. No significant dullness noted on percussion. CHEST: Palpation of the chest wall shows no significant chest wall tenderness. 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 ABDOMEN: Soft, no significant tenderness appreciated, normoactive bowel sounds. No guarding, no rebound. No rigidity noted . No masses appreciated. EXTREMITIES: Pedal pulses are 1-2+, no calf tenderness noted. No clubbing or cyanosis. negative pedal edema noted NEUROLOGICAL: Focused neurological exam showed no significant neurologic deficit. Normal speech, no focal weakness appreciated. PSYCH: Normal mood, normal affect. Judgment and insight within normal limits. SKIN: No significant ecchymosis, skin is noted to be warm. MUSCULOSKELETAL EXAM: No significant acute joint swelling noted. Results Laboratory Results: 09/06/19 03:53 09/06/19 03:53 09/06/19 09/06/19 03:53 03:53 WBC 6.6 RBC 3.80 Hgb 13.5 Hct 40.1 MCV 105 H MCH 35.6 H MCHC 33.8 RDW 15.4 H Plt Count 133 L Seg Neutrophils % 78.8 H Sodium 138.1 Potassium 4.3 Chloride 101 Carbon Dioxide 29 Anion Gap 8 BUN 20 Creatinine 1.14 Est GFR ( Amer) 57 L Glucose 78 Calcium 8.4 08/31/19 11:25 Troponin I 0.023 NT-Pro-B Natriuret Pep 3300 H EKG Comments: Sinus rhythm, no sustained tachyarrhythmia or bradycardia arrhythmias noted. Impressions: Chest X-Ray 09/05/19 18:41 IMPRESSION: Borderline cardiomegaly without kraig pulmonary edema. Cannot exclude atelectatic changes in the left upper lobe. Cannot exclude pneumonia in the right lower lobe medially. Assessment & Plan - Diagnosis (1) Acute and chronic respiratory failure Qualifiers: Respiratory failure complication: unspecified whether with hypoxia or hypercapnia Qualified Code(s): J96.20 - Acute and chronic respiratory failure, unspecified whether with hypoxia or hypercapnia Is this a current diagnosis for this admission?: Yes (2) Atrial septal defect Is this a current diagnosis for this admission?: Yes (3) Pulmonary hypertension Is this a current diagnosis for this admission?: Yes (4) Hypertension Qualifiers: Hypertension type: essential hypertension Qualified Code(s): I10 - Essential (primary) hypertension Is this a current diagnosis for this admission?: Yes - Notes Notes: Patient continues with severe hypoxemia in spite of high flow oxygen. In fact series of arterial blood gases did not show any significant fluctuation in her oxygen tension and arterial blood. This is indicative of a right to left shunt. Based on previous evaluations at [facility], patient seems to have atrial septal defect, also unroofing of the coronary sinus. Patient would need further evaluation at [facility] where she was evaluated before. It was therefore recommended to the patient to be transferred there. I arranged the transfer. It seems total time involved was about 40 minutes in taking care of this patient. Patient is very complex. Problems are noted in yesterday's note. - Time Time with patient: Greater than 35 minutes Medications reviewed and adjusted accordingly: Yes
--- NOTE | 2019-09-09 13:01 | PDOC PROGRESS REPORT ---
Subjective Progress Note for:: 09/04/19 Subjective:: Patient seen at request of Dr. Millan. She was admitted with severe hypoxemia. Patient actually needing very high flow oxygen and even then her O2 saturation is in the 80s. Patient however denied any chest pain. She does have shortness of breath on mild exertion. Reason For Visit: LOBAR PNEUMONIA,ACUTE RESPIRATORY FAILURE WITH Physical Exam Vital Signs: Temp Pulse Resp BP Pulse Ox 98.4 F 75 18 136/59 H 85 L 09/05/19 07:45 09/05/19 07:45 09/05/19 07:45 09/05/19 07:45 09/05/19 07:45 Intake & Output 09/04/19 09/05/19 09/06/19 06:59 06:59 06:59 Intake Total 1140 300 Output Total 200 300 Balance 940 0 Weight 105 kg 106.1 kg Exam: GENERAL: well-nourished and in no acute distress. Alert and oriented x3 HEAD: Atraumatic, normocephalic. EYES: DARWIN, sclera anicteric, conjunctiva are normal. ENT: Moist mucous membranes. No oral ulcerations or bleeding gums noted. No obvious ear, nose or throat abnormalities noted. NECK: supple without lymphadenopathy. Trachea is central. No cervical or a xillary lymphadenopathy noted. Carotids are 2+, JVD WNL LUNGS: Breath sounds clear bilaterally. No wheezes rales or rhonchi noted. No significant dullness noted on percussion. CHEST: Palpation of the chest wall shows no significant chest wall tenderness. 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 ABDOMEN: Soft, no significant tenderness appreciated, normoactive bowel sounds. No guarding, no rebound. No rigidity noted . No masses appreciated. EXTREMITIES: Pedal pulses are 1-2+, no calf tenderness noted. No clubbing or cyanosis. 1+ pedal edema noted NEUROLOGICAL: Focused neurological exam showed no significant neurologic defici t. Normal speech, no focal weakness appreciated. PSYCH: Normal mood, normal affect. Judgment and insight within normal limits. SKIN: No significant ecchymosis, skin is noted to be warm. MUSCULOSKELETAL EXAM: No significant acute joint swelling noted. Results Laboratory Results: 09/05/19 04:19 09/05/19 04:19 09/05/19 09/05/19 04:19 04:19 WBC 6.5 RBC 3.73 Hgb 13.1 Hct 39.5 MCV 106 H MCH 35.2 H MCHC 33.2 RDW 15.7 H Plt Count 129 L Seg Neutrophils % 75.1 Sodium 137.9 Potassium 4.5 Chloride 105 Carbon Dioxide 25 Anion Gap 8 BUN 21 H Creatinine 1.24 Est GFR ( Amer) 52 L Glucose 75 Calcium 7.9 L 08/31/19 11:25 Troponin I 0.023 NT-Pro-B Natriuret Pep 3300 H EKG Comments: Sinus rhythm with left bundle branch block. No acute ST-T wave changes noted. Impressions: Chest X-Ray 08/31/19 11:12 IMPRESSION: CHRONIC INTERSTITIAL CHANGES AND SCARRING IN THE LEFT APEX. FAINT DENSITY IN THE RIGHT LOWER LOBE, POSSIBLY EARLY PNEUMONIA. Assessment & Plan - Diagnosis (1) Acute and chronic respiratory failure Qualifiers: Respiratory failure complication: unspecified whether with hypoxia or hypercapnia Qualified Code(s): J96.20 - Acute and chronic respiratory failure, unspecified whether with hypoxia or hypercapnia Is this a current diagnosis for this admission?: Yes (2) Atrial septal defect Is this a current diagnosis for this admission?: Yes (3) CAD (coronary artery disease) Qualifiers: Coronary Disease-Associated Artery/Lesion type: [place] artery Is this a current diagnosis for this admission?: Yes (4) Chronic kidney disease, stage 3 Is this a current diagnosis for this admission?: Yes (5) Hypertension Qualifiers: Hypertension type: essential hypertension Qualified Code(s): I10 - Essenti al (primary) hypertension Is this a current diagnosis for this admission?: Yes - Notes Notes: Patient presentation was for shortness of breath and hypoxemia. Chest x-ray and EKG reviewed. Chest x-ray shows cardiomegaly but no clinical CHF by radiography. No evidence of intrinsic lung disease. Feel that hypoxemia most likely related to right to left shunt. Have ordered a 2D echo to look for any right to left shunting. As regards patient other medical diagnoses including coronary artery disease, chronic kidney disease, hypertension, possible underlying lung disease, these are stable and being ably managed by the refractory specialist. Would recommend that agriculture specialist be involved in this patient's care as well. As usual I thank Dr. Millan very much for the kind referral.. - Time Time with patient: Greater than 35 minutes - More than 50% of the time spent coordinating care, discussing management plans with involved caregivers. Management plans discussed with involved personnels. Medical decision making was of moderate to high complexity, patient's has multiple comorbidities.
== END 2019-09-06 16:20 | disposition short-term general hospital (02) | DRG 189 ==
LOC: ER 10:49 → EH 09-02 17:06 → 3N 09-02 20:06
PROVIDERS: ADMIT Family Medicine; ATTEND Family Medicine
PROC: 5A09557 Assistance with Respiratory Ventilation, Greater than 96 Consecutive Hours, Continuous Positive Airway Pressure (ICD-10-PCS; principal; 2019-08-31)
DX: J96.21 Acute and chronic respiratory failure with hypoxia (principal); J18.9 Pneumonia, unspecified organism; J44.0 Chronic obstructive pulmonary disease with (acute) lower respiratory infection; E66.2 Morbid (severe) obesity with alveolar hypoventilation; Q21.1 Atrial septal defect; J96.22 Acute and chronic respiratory failure with hypercapnia; I44.7 Left bundle-branch block, unspecified; I25.10 Atherosclerotic heart disease of native coronary artery without angina pectoris; E03.9 Hypothyroidism, unspecified; I27.20 Pulmonary hypertension, unspecified; N18.3 Chronic kidney disease, stage 3 (moderate); I12.9 Hypertensive chronic kidney disease with stage 1 through stage 4 chronic kidney disease, or unspecified chronic kidney disease; E78.00 Pure hypercholesterolemia, unspecified; K21.9 Gastro-esophageal reflux disease without esophagitis; D75.1 Secondary polycythemia; I25.2 Old myocardial infarction; Z99.81 Dependence on supplemental oxygen; Z88.2 Allergy status to sulfonamides; Z79.899 Other long term (current) drug therapy; Z79.890 Hormone replacement therapy; Z91.19 Patient's noncompliance with other medical treatment and regimen
CPT/HCPCS: 36415; 36600; 71045; 80048; 80053; 80061; 81001; 82803; 83880; 84484; 85025; 85652; 87040; 87804; 93005; 93010; 93306; 94660; 96365; 96367; 96375; 99291; J0456; J0696; J1650; J1885; J1940; J3490; J7030; J7060